=== PATIENT | male | born 1980 | race Two or more races ===

== ENCOUNTER 2021-07-23 07:37 | Inpatient (IN) | payer OTHER ==
[~2021-07-23] VITALS: Ht 193 cm; Wt 94.3 kg
[2021-07-23 10:53] LABS: Basophils # (auto) 0 10 ^3/uL (0-0.2); Basophils % (auto) 0.1 % (0.0-2.0); Eosinophils # (auto) 0 10 ^3/uL (0-0.8); Hematocrit 40.8 % (41.0-53.0); Hemoglobin 14.1 g/dL (13.5-17.5); Lymphocytes # (auto) 0.3 10 ^3/uL (0.4-5.4); Lymphocytes % (auto) 6.5 % (10.0-50.0); Mean Corpuscular Hemoglobin 31.5 pg (28.0-32.0); Mean Corpuscular Hgb Conc. 34.6 g/dL (32.0-36.0); Mean Corpuscular Volume 90.9 fL (80.0-100.0); Monocytes # (auto) 0.3 10 ^3/uL (0-1.3); Monocytes % (auto) 4.9 % (0.0-12.0); Neutrophils # (auto) 4.7 10 ^3/uL (1.6-8.6); Neutrophils % (auto) 88.5 % (37.0-80.0); Red Blood Cells 4.48 10^6/uL (4.5-5.90); Red Cell Distribution Width 12.9 % (11.8-14.3); White Blood Cell 5.3 10^3/uL (4.4-10.8)
[2021-07-23 11:10] LABS: Albumin 3.9 g/dL (3.4-5.0); BUN/Creatinine Ratio 11.5; Bilirubin, Total 0.4 mg/dL (0.2-1.0); Calcium 8.3 mg/dL (8.5-10.1); Total Protein 7.3 g/dL (6.4-8.2)
[2021-07-23] MEDS ORDERED: MORPHINE SULFATE INJECTION 2 MG/ML SYRG IV PRN ×3 (12:00→15:45)
[2021-07-23] MEDS ORDERED: cefTRIAXone 1GM/50ML D5W 50 ML IV ONE ×2 (12:00→15:30)
[2021-07-23] MEDS ORDERED: DexAMETHasone SOD PHOS 10MG/1ML VIAL INJ IV ONE ×2 (12:00→15:30)
[2021-07-23] MEDS ORDERED: AZITHROMYCIN 500MG/ 250ML 250 ML IV ONE ×2 (12:00→15:30)
[2021-07-23] MEDS ORDERED: NITROGLYCERIN 0.4 MG SL TAB SL PRN ×2 (12:00→15:45)
[2021-07-23] MEDS ORDERED: PROMETHAZINE-DM 5 ML ORAL SYRUP PO PRN (14:45)
[2021-07-23] MEDS ORDERED: IPRATROPIUM BROM 0.5 MG/2.5ML INH SOL NEB ONE (15:30)
[2021-07-23] MEDS ORDERED: ALBUTEROL SULF 2.5 MG/0.5ML(0.5%) NEB SOLN NEB ONE (15:30)
[2021-07-23] MEDS ORDERED: REMDESIVIR PER PHARMACY 0 ML IV SCH (15:30)
[2021-07-23] MEDS ORDERED: FUROSEMIDE 20 MG/2 ML VIAL IV ONE (15:30)
[2021-07-23] MEDS ORDERED: PANTOPRAZOLE 40 MG/10 ML VIAL INJ IV ONE (15:30)
[2021-07-23] MEDS ORDERED: ALUM & MAG HYDROX-SIMETH LIQ(MAALOX) 30 ML PO PRN (15:45)
[2021-07-23 16:16] LABS: Cholesterol 99 mg/dL (< 200)
[2021-07-23 16:19] LABS: HDL Cholesterol 39 mg/dL (40-59); LDL Cholesterol 51 mg/dL (< 100); Triglycerides 80 mg/dL (< 150)
[2021-07-23 16:31] LABS: Thyroid Stimulating Hormone 0.71 uIU/mL (0.358-3.74)
[2021-07-23] MEDS ORDERED: REMDESIVIR 200 MG in NS 210ml LOADING DOSE ADULT IV ONE (17:00)
[2021-07-23 17:14] LABS: Magnesium 2.5 mg/dL (1.6-2.6)
[2021-07-23 17:20] LABS: Phosphorus 3.2 mg/dL (2.5-4.90)
[2021-07-23] MEDS ORDERED: ALBUTEROL SULF 2.5 MG/0.5ML(0.5%) NEB SOLN NEB SCH (18:00)
[2021-07-23] MEDS ORDERED: IPRATROPIUM BROM 0.5 MG/2.5ML INH SOL NEB SCH (18:00)
[2021-07-23] MEDS: BUDESONIDE (INHALATION) 180 MCG IH IN SCH (19:28)
[2021-07-23] MEDS: ALBUTEROL SULF HFA 90MCG INH 200DOSE IN PRN (19:28)
[2021-07-23] MEDS: FUROSEMIDE 20 MG/2 ML VIAL IV SCH (20:30)
[2021-07-23] MEDS: ATORVASTATIN 20 MG TAB PO SCH (22:00)
[2021-07-23] MEDS: POTASSIUM CHL 20 Meq TABLET PO SCH (22:00)
[2021-07-23] MEDS: ENOXAPARIN SOD 40 MG/0.4 ML SYRINGE SC SCH (22:00)
[2021-07-24] VITALS: BP 102/53
[2021-07-24 05:00] VITALS: BP 96/61
[2021-07-24] MEDS: FUROSEMIDE 20 MG/2 ML VIAL IV SCH ×2 (06:00→18:54)
[2021-07-24] MEDS: ALBUTEROL SULF HFA 90MCG INH 200DOSE IN PRN ×2 (06:13→19:27)
[2021-07-24] MEDS: BUDESONIDE (INHALATION) 180 MCG IH IN SCH ×2 (06:13→19:26)
[2021-07-24 08:00] VITALS: BP 105/70
[2021-07-24 09:15] LABS: Basophils # (auto) 0 10 ^3/uL (0-0.2); Basophils % (auto) 0.1 % (0.0-2.0); Eosinophils # (auto) 0 10 ^3/uL (0-0.8); Hematocrit 41.5 % (41.0-53.0); Lymphocytes # (auto) 1.1 10 ^3/uL (0.4-5.4); Lymphocytes % (auto) 17.2 % (10.0-50.0); Mean Corpuscular Hgb Conc. 33.7 g/dL (32.0-36.0); Mean Corpuscular Volume 91.9 fL (80.0-100.0); Monocytes # (auto) 0.6 10 ^3/uL (0-1.3); Monocytes % (auto) 8.7 % (0.0-12.0); Neutrophils # (auto) 4.8 10 ^3/uL (1.6-8.6); Nucleated Red Blood Cells % 0.2 %; Red Blood Cells 4.52 10^6/uL (4.5-5.90); Red Cell Distribution Width 12.8 % (11.8-14.3); White Blood Cell 6.5 10^3/uL (4.4-10.8)
[2021-07-24 09:45] LABS: Albumin 3.6 g/dL (3.4-5.0); Calcium 8.3 mg/dL (8.5-10.1); Magnesium 3.8 mg/dL (1.6-2.6); Potassium 4.1 mmol/L (3.5-5.1)
[2021-07-24 09:56] LABS: BUN/Creatinine Ratio 18.9; Bilirubin, Total 0.4 mg/dL (0.2-1.0); Phosphorus 3.8 mg/dL (2.5-4.90); Total Protein 7.1 g/dL (6.4-8.2); Uric Acid 6.1 mg/dL (3.5-7.2)
[2021-07-24 10:04] LABS: INR 1.04 (0.9-1.15); Partial Thromboplastin Time 30.2 sec (23.6-33.0)
[2021-07-24] MEDS: PANTOPRAZOLE 40 MG/10 ML VIAL INJ IV SCH (10:41)
[2021-07-24] MEDS: cefTRIAXone 1GM/50ML D5W 50 ML IV SCH (10:41)
[2021-07-24] MEDS: DexAMETHasone SOD PHOS 10MG/1ML VIAL INJ IV SCH (10:41)
[2021-07-24] MEDS: ASPirin 81 mg TAB PO SCH (10:41)
[2021-07-24] MEDS: CHOLECALCIFEROL (VITD3) 2,000 UNIT CAP/TAB PO SCH (10:42)
[2021-07-24] MEDS: ASCORBIC ACID 1,000 MG TAB PO SCH (10:42)
[2021-07-24] MEDS: ENOXAPARIN SOD 40 MG/0.4 ML SYRINGE SC SCH ×2 (10:42→22:08)
[2021-07-24] MEDS: IVERMECTIN 3 MG TAB PO SCH (10:42)
[2021-07-24] MEDS: ZINC SULFATE 220mg CAP or TAB PO SCH (10:43)
[2021-07-24] MEDS: POTASSIUM CHL 20 Meq TABLET PO SCH ×2 (10:44→22:07)
[2021-07-24] MEDS: AZITHROMYCIN 500MG/ 250ML 250 ML IV SCH (11:15)
[2021-07-24 13:00] VITALS: BP 113/72
[2021-07-24 13:13] LABS: Alcohol, Urine < 3.0 mg/dL (0-10); Amphetamine Screen, Urine NEGATIVE (NEGATIVE); Barbiturate Scree,Urine NEGATIVE (NEGATIVE); Benzodiazephine Screen, Urine NEGATIVE (NEGATIVE); Cannabinoid Screen, Urine NEGATIVE (NEGATIVE); Cocaine Screen, Urine NEGATIVE (NEGATIVE); Opiate Scree,Urine NEGATIVE (NEGATIVE); Phencyclidine Screen, Urine NEGATIVE (NEGATIVE)
[2021-07-24 13:24] LABS: Urine Bacteria NONE SEEN /hpf (None Seen); Urine Blood Negative /uL (Negative); Urine Specific Gravity 1.024 (1.001-1.035); Urine WBC 1 /hpf (0 - 3)
[2021-07-24] MEDS: REMDESIVIR 100mg 100 MG in SODIUM CHL 0.9% 230 ML IV SCH ×2 (15:00→17:00)
[2021-07-24 16:00] VITALS: BP 121/69
[2021-07-24 22:00] VITALS: BP 89/60
[2021-07-24] MEDS: LORazepam 0.5 MG TAB PO PRN (22:08)
[2021-07-24] MEDS: ATORVASTATIN 20 MG TAB PO SCH (22:08)
[2021-07-24] MEDS: ACETAMINOPHEN 500 MG TAB PO PRN (22:30)
[2021-07-24] MEDS ORDERED: DEXTROSE (50%) 50ML SYRG IV PRN (22:45)
[2021-07-24] MEDS: ACCU-CHEK COMFORT CURVE STRIP VI SCH (23:45)
[2021-07-24] MEDS: InsuLIN REG 1unit/0.01ml Soln (100units/ml) SC SCH (23:45)
[2021-07-25 05:00] VITALS: BP 112/62
[2021-07-25] MEDS: InsuLIN REG 1unit/0.01ml Soln (100units/ml) SC SCH ×4 (06:00→23:55)
[2021-07-25] MEDS: ACCU-CHEK COMFORT CURVE STRIP VI SCH ×4 (06:19→23:55)
[2021-07-25] MEDS: FUROSEMIDE 20 MG/2 ML VIAL IV SCH ×2 (06:19→18:08)
[2021-07-25] MEDS ORDERED: NEBUMIS40 XX (06:44)
[2021-07-25] MEDS ORDERED: ALBU108A5 IN (06:44)
[2021-07-25 08:00] VITALS: BP 104/66
[2021-07-25 09:00] VITALS: BP 104/66
[2021-07-25] MEDS: BUDESONIDE (INHALATION) 180 MCG IH IN SCH (09:11)
[2021-07-25] MEDS: ALBUTEROL SULF HFA 90MCG INH 200DOSE IN PRN (09:11)
[2021-07-25] MEDS: ZINC SULFATE 220mg CAP or TAB PO SCH (10:16)
[2021-07-25] MEDS: IVERMECTIN 3 MG TAB PO SCH (10:16)
[2021-07-25] MEDS: ASPirin 81 mg TAB PO SCH (10:16)
[2021-07-25] MEDS: cefTRIAXone 1GM/50ML D5W 50 ML IV SCH (10:16)
[2021-07-25] MEDS: POTASSIUM CHL 20 Meq TABLET PO SCH ×2 (10:16→22:00)
[2021-07-25] MEDS: ASCORBIC ACID 1,000 MG TAB PO SCH (10:16)
[2021-07-25] MEDS: ENOXAPARIN SOD 40 MG/0.4 ML SYRINGE SC SCH ×2 (10:17→22:00)
[2021-07-25] MEDS: PANTOPRAZOLE 40 MG/10 ML VIAL INJ IV SCH (10:17)
[2021-07-25] MEDS: AZITHROMYCIN 500MG/ 250ML 250 ML IV SCH (10:17)
[2021-07-25] MEDS: CHOLECALCIFEROL (VITD3) 2,000 UNIT CAP/TAB PO SCH (10:17)
[2021-07-25] MEDS: DexAMETHasone SOD PHOS 10MG/1ML VIAL INJ IV SCH (10:17)
[2021-07-25 13:00] VITALS: BP 92/50
[2021-07-25] MEDS: REMDESIVIR 100mg 100 MG in SODIUM CHL 0.9% 230 ML IV SCH (14:34)
[2021-07-25 17:00] VITALS: BP 100/66
[2021-07-25 22:00] VITALS: BP 97/52
[2021-07-26] VITALS (7 sets, daily range): BP systolic 94–113; BP diastolic 46–66
[2021-07-26] MEDS: InsuLIN REG 1unit/0.01ml Soln (100units/ml) SC SCH ×3 (06:00→17:44)
[2021-07-26] MEDS: ACCU-CHEK COMFORT CURVE STRIP VI SCH ×3 (06:00→17:44)
[2021-07-26] MEDS: FUROSEMIDE 20 MG/2 ML VIAL IV SCH ×2 (06:46→17:44)
[2021-07-26 07:17] LABS: Potassium 4.1 mmol/L (3.5-5.1)
[2021-07-26 07:24] LABS: Albumin 3.4 g/dL (3.4-5.0); BUN/Creatinine Ratio 24.2; Bilirubin, Total 0.5 mg/dL (0.2-1.0); Calcium 8.1 mg/dL (8.5-10.1); Total Protein 6.6 g/dL (6.4-8.2)
[2021-07-26] MEDS: BUDESONIDE (INHALATION) 180 MCG IH IN SCH ×2 (08:09→20:27)
[2021-07-26] MEDS: ALBUTEROL SULF HFA 90MCG INH 200DOSE IN PRN ×2 (08:10→20:27)
[2021-07-26] MEDS: ENOXAPARIN SOD 40 MG/0.4 ML SYRINGE SC SCH ×2 (09:26→21:39)
[2021-07-26] MEDS: cefTRIAXone 1GM/50ML D5W 50 ML IV SCH (09:26)
[2021-07-26] MEDS: POTASSIUM CHL 20 Meq TABLET PO SCH ×2 (09:27→21:38)
[2021-07-26] MEDS: ASPirin 81 mg TAB PO SCH (09:27)
[2021-07-26] MEDS: CHOLECALCIFEROL (VITD3) 2,000 UNIT CAP/TAB PO SCH (09:27)
[2021-07-26] MEDS: IVERMECTIN 3 MG TAB PO SCH (09:27)
[2021-07-26] MEDS: ZINC SULFATE 220mg CAP or TAB PO SCH (09:27)
[2021-07-26] MEDS: ASCORBIC ACID 1,000 MG TAB PO SCH (09:27)
[2021-07-26] MEDS: AZITHROMYCIN 500MG/ 250ML 250 ML IV SCH (09:28)
[2021-07-26] MEDS: HYDROcodone-ACET 5/325MG TAB PO PRN (09:28)
[2021-07-26] MEDS: PANTOPRAZOLE 40 MG/10 ML VIAL INJ IV SCH (09:28)
[2021-07-26] MEDS: DexAMETHasone SOD PHOS 10MG/1ML VIAL INJ IV SCH (09:28)
[2021-07-26] MEDS: REMDESIVIR 100mg 100 MG in SODIUM CHL 0.9% 230 ML IV SCH (15:00)
[2021-07-26] MEDS: ACETAMINOPHEN 500 MG TAB PO PRN (21:42)
[2021-07-27] MEDS: ACETAMINOPHEN 500 MG TAB PO PRN (04:57)
[2021-07-27 05:00] VITALS: BP 113/63
[2021-07-27] MEDS: InsuLIN REG 1unit/0.01ml Soln (100units/ml) SC SCH ×5 (06:00→22:21)
[2021-07-27] MEDS: FUROSEMIDE 20 MG/2 ML VIAL IV SCH ×2 (06:10→18:00)
[2021-07-27] MEDS: ACCU-CHEK COMFORT CURVE STRIP VI SCH ×5 (06:10→22:25)
[2021-07-27 09:00] VITALS: BP 115/65
[2021-07-27 09:08] LABS: Basophils # (auto) 0 10 ^3/uL (0-0.2); Basophils % (auto) 0.1 % (0.0-2.0); Eosinophils # (auto) 0 10 ^3/uL (0-0.8); Hematocrit 41.7 % (41.0-53.0); Hemoglobin 14.1 g/dL (13.5-17.5); Lymphocytes # (auto) 1.4 10 ^3/uL (0.4-5.4); Mean Corpuscular Hemoglobin 30.9 pg (28.0-32.0); Mean Corpuscular Hgb Conc. 33.9 g/dL (32.0-36.0); Mean Corpuscular Volume 91.3 fL (80.0-100.0); Monocytes # (auto) 0.3 10 ^3/uL (0-1.3); Monocytes % (auto) 2.9 % (0.0-12.0); Neutrophils # (auto) 7.9 10 ^3/uL (1.6-8.6); Red Blood Cells 4.57 10^6/uL (4.5-5.90); Red Cell Distribution Width 12.6 % (11.8-14.3); White Blood Cell 9.6 10^3/uL (4.4-10.8)
[2021-07-27] MEDS: DexAMETHasone SOD PHOS 10MG/1ML VIAL INJ IV SCH (09:19)
[2021-07-27] MEDS: ENOXAPARIN SOD 40 MG/0.4 ML SYRINGE SC SCH ×2 (09:19→21:08)
[2021-07-27] MEDS: PANTOPRAZOLE 40 MG/10 ML VIAL INJ IV SCH (09:19)
[2021-07-27] MEDS: POTASSIUM CHL 20 Meq TABLET PO SCH ×2 (09:20→21:07)
[2021-07-27] MEDS: CHOLECALCIFEROL (VITD3) 2,000 UNIT CAP/TAB PO SCH (09:20)
[2021-07-27] MEDS: cefTRIAXone 1GM/50ML D5W 50 ML IV SCH (09:20)
[2021-07-27] MEDS: ASPirin 81 mg TAB PO SCH (09:20)
[2021-07-27] MEDS: ZINC SULFATE 220mg CAP or TAB PO SCH (09:20)
[2021-07-27] MEDS: IVERMECTIN 3 MG TAB PO SCH (09:21)
[2021-07-27] MEDS: ASCORBIC ACID 1,000 MG TAB PO SCH (09:21)
[2021-07-27] MEDS: HYDROcodone-ACET 5/325MG TAB PO PRN (09:22)
[2021-07-27 09:26] LABS: Albumin 3.2 g/dL (3.4-5.0); Calcium 7.9 mg/dL (8.5-10.1); Magnesium 3.4 mg/dL (1.6-2.6); Potassium 3.3 mmol/L (3.5-5.1)
[2021-07-27 09:34] LABS: BUN/Creatinine Ratio 15.4; Bilirubin, Total 0.6 mg/dL (0.2-1.0); CRP High Sensitivity 8.05 mg/dL (< 0.3); Total Protein 6.8 g/dL (6.4-8.2)
[2021-07-27] MEDS: AZITHROMYCIN 500MG/ 250ML 250 ML IV SCH (11:56)
[2021-07-27] MEDS ORDERED: BUDE2SUS3 IN (11:58)
[2021-07-27] MEDS ORDERED: ALBUAER3 IN (11:58)
[2021-07-27] MEDS ORDERED: POTASSIUM EFFERVESENT TAB 25 MEQ PO ONE (12:00)
[2021-07-27] MEDS ORDERED: CHOL20007 PO (12:02)
[2021-07-27] MEDS ORDERED: ASPI-378 PO (12:02)
[2021-07-27] MEDS ORDERED: ZINC220T6 PO (12:02)
[2021-07-27] MEDS ORDERED: FAMO20TA10 PO (12:02)
[2021-07-27] MEDS ORDERED: IVER3TAB PO (12:02)
[2021-07-27] MEDS ORDERED: DOXY-286 PO (12:02)
[2021-07-27] MEDS ORDERED: DEX4T PO (12:02)
[2021-07-27] MEDS ORDERED: ASCO10003 PO (12:02)
[2021-07-27 13:00] VITALS: BP 90/53
[2021-07-27] MEDS ORDERED: PIPERACILLIN-TAZOB 3.375GM 100 ML IV ONE (13:00)
[2021-07-27] MEDS: BUDESONIDE (INHALATION) 180 MCG IH IN SCH ×2 (13:09→20:19)
[2021-07-27] MEDS: ALBUTEROL SULF HFA 90MCG INH 200DOSE IN PRN ×2 (13:09→20:19)
[2021-07-27] MEDS: REMDESIVIR 100mg 100 MG in SODIUM CHL 0.9% 230 ML IV SCH (15:00)
[2021-07-27 17:00] VITALS: BP 92/69
[2021-07-27] MEDS ORDERED: PIPERACILLIN-TAZOB 3.375GM 100 ML IV SCH (18:00)
[2021-07-27] MEDS: PIPERACILLIN-TAZOB 3.375GM 100 ML IV SCH (21:07)
[2021-07-27 22:00] VITALS: BP 105/57
[2021-07-28] MEDS: PIPERACILLIN-TAZOB 3.375GM 100 ML IV SCH ×4 (03:21→22:38)
[2021-07-28] MEDS: HYDROcodone-ACET 5/325MG TAB PO PRN ×2 (03:22→20:51)
[2021-07-28] MEDS: ACETAMINOPHEN 500 MG TAB PO PRN (04:14)
[2021-07-28 05:00] VITALS: BP 114/55
[2021-07-28] MEDS: BUDESONIDE (INHALATION) 180 MCG IH IN SCH ×2 (05:57→22:09)
[2021-07-28] MEDS: ALBUTEROL SULF HFA 90MCG INH 200DOSE IN PRN ×2 (05:57→22:10)
[2021-07-28] MEDS: ACCU-CHEK COMFORT CURVE STRIP VI SCH ×4 (06:00→23:21)
[2021-07-28] MEDS: FUROSEMIDE 20 MG/2 ML VIAL IV SCH ×2 (06:29→18:05)
[2021-07-28] MEDS: InsuLIN REG 1unit/0.01ml Soln (100units/ml) SC SCH ×4 (06:30→23:21)
[2021-07-28 08:26] LABS: Basophils # (auto) 0 10 ^3/uL (0-0.2); Basophils % (auto) 0.1 % (0.0-2.0); Eosinophils # (auto) 0 10 ^3/uL (0-0.8); Eosinophils % (auto) 0.1 % (0.0-7.0); Hematocrit 40.5 % (41.0-53.0); Hemoglobin 13.9 g/dL (13.5-17.5); Lymphocytes # (auto) 1.2 10 ^3/uL (0.4-5.4); Lymphocytes % (auto) 13.2 % (10.0-50.0); Mean Corpuscular Hgb Conc. 34.3 g/dL (32.0-36.0); Mean Corpuscular Volume 90.2 fL (80.0-100.0); Monocytes # (auto) 0.3 10 ^3/uL (0-1.3); Monocytes % (auto) 3.3 % (0.0-12.0); Neutrophils # (auto) 7.3 10 ^3/uL (1.6-8.6); Neutrophils % (auto) 83.3 % (37.0-80.0); Nucleated Red Blood Cells % 0.1 %; Red Blood Cells 4.49 10^6/uL (4.5-5.90); Red Cell Distribution Width 12.8 % (11.8-14.3); White Blood Cell 8.8 10^3/uL (4.4-10.8)
[2021-07-28 08:29] LABS: INR 1.13 (0.9-1.15); Potassium 3.5 mmol/L (3.5-5.1)
[2021-07-28 08:55] LABS: BUN/Creatinine Ratio 18.2; CRP High Sensitivity 12.4 mg/dL (< 0.3); Calcium 8.4 mg/dL (8.5-10.1)
[2021-07-28] MEDS: ZINC SULFATE 220mg CAP or TAB PO SCH (09:17)
[2021-07-28] MEDS: ENOXAPARIN SOD 40 MG/0.4 ML SYRINGE SC SCH ×2 (09:17→22:38)
[2021-07-28] MEDS: PANTOPRAZOLE 40 MG/10 ML VIAL INJ IV SCH (09:17)
[2021-07-28] MEDS: DexAMETHasone SOD PHOS 10MG/1ML VIAL INJ IV SCH (09:17)
[2021-07-28] MEDS: ASCORBIC ACID 1,000 MG TAB PO SCH (09:18)
[2021-07-28] MEDS: CHOLECALCIFEROL (VITD3) 2,000 UNIT CAP/TAB PO SCH (09:19)
[2021-07-28] MEDS: IVERMECTIN 3 MG TAB PO SCH (09:19)
[2021-07-28] MEDS: POTASSIUM CHL 20 Meq TABLET PO SCH ×2 (09:19→22:38)
[2021-07-28] MEDS: ASPirin 81 mg TAB PO SCH (09:19)
[2021-07-28 10:13] VITALS: BP 100/52
[2021-07-28 12:25] VITALS: BP 99/56
[2021-07-28 16:30] VITALS: BP 96/60
[2021-07-28 22:00] VITALS: BP 98/60
[2021-07-29] MEDS: PIPERACILLIN-TAZOB 3.375GM 100 ML IV SCH ×4 (03:46→21:58)
[2021-07-29 05:00] VITALS: BP 92/51
[2021-07-29] MEDS: FUROSEMIDE 20 MG/2 ML VIAL IV SCH ×2 (05:41→17:58)
[2021-07-29] MEDS: InsuLIN REG 1unit/0.01ml Soln (100units/ml) SC SCH ×3 (06:00→17:58)
[2021-07-29] MEDS: ACCU-CHEK COMFORT CURVE STRIP VI SCH ×3 (06:07→17:57)
[2021-07-29] MEDS: PROMETHAZINE W/CODEINE 5 ML ORAL SYRUP PO PRN ×3 (06:08→21:59)
[2021-07-29 09:00] VITALS: BP_SYST 104; BP_SYST 123; BP_DIAS 57; BP_DIAS 81
[2021-07-29] MEDS: ALBUTEROL SULF HFA 90MCG INH 200DOSE IN PRN ×2 (09:17→19:38)
[2021-07-29] MEDS: BUDESONIDE (INHALATION) 180 MCG IH IN SCH ×2 (09:17→19:38)
[2021-07-29] MEDS: PANTOPRAZOLE 40 MG/10 ML VIAL INJ IV SCH (09:29)
[2021-07-29] MEDS: DOCUSATE SOD 100 MG CAP PO PRN (09:29)
[2021-07-29] MEDS: DexAMETHasone SOD PHOS 10MG/1ML VIAL INJ IV SCH (09:29)
[2021-07-29] MEDS: ZINC SULFATE 220mg CAP or TAB PO SCH (09:29)
[2021-07-29] MEDS: ASPirin 81 mg TAB PO SCH (09:29)
[2021-07-29] MEDS: ASCORBIC ACID 1,000 MG TAB PO SCH (09:30)
[2021-07-29] MEDS: ENOXAPARIN SOD 40 MG/0.4 ML SYRINGE SC SCH (09:30)
[2021-07-29] MEDS: CHOLECALCIFEROL (VITD3) 2,000 UNIT CAP/TAB PO SCH (09:30)
[2021-07-29] MEDS: POTASSIUM CHL 20 Meq TABLET PO SCH ×2 (09:30→21:58)
[2021-07-29 09:44] LABS: Calcium 8.6 mg/dL (8.5-10.1); Potassium 3.9 mmol/L (3.5-5.1)
[2021-07-29] MEDS ORDERED: FUROSEMIDE 20 MG/2 ML VIAL IV ONE (10:45)
[2021-07-29] MEDS: LORazepam 0.5 MG TAB PO PRN (11:56)
[2021-07-29 13:02] VITALS: BP_SYST 93; BP_SYST 94; BP_DIAS 47
[2021-07-29] MEDS: ACETAMINOPHEN 500 MG TAB PO PRN (13:11)
[2021-07-29] MEDS ORDERED: ENOXAPARIN SOD 80 MG/0.8ML SYRINGE SC ONE (13:45)
[2021-07-29] MEDS ORDERED: ENOXAPARIN SOD 120 MG/0.8 ML SYRINGE SC ONE (13:45)
[2021-07-29 17:00] VITALS: BP 83/50
[2021-07-29 22:00] VITALS: BP 104/66
[2021-07-30] MEDS: ACCU-CHEK COMFORT CURVE STRIP VI SCH ×4 (00:44→17:25)
[2021-07-30] MEDS: InsuLIN REG 1unit/0.01ml Soln (100units/ml) SC SCH ×4 (00:44→17:26)
[2021-07-30] MEDS: PIPERACILLIN-TAZOB 3.375GM 100 ML IV SCH ×4 (02:58→21:03)
[2021-07-30 05:00] VITALS: BP 91/46
[2021-07-30 08:00] VITALS: BP 107/55
[2021-07-30] MEDS: DexAMETHasone SOD PHOS 10MG/1ML VIAL INJ IV SCH (09:59)
[2021-07-30] MEDS: PROMETHAZINE W/CODEINE 5 ML ORAL SYRUP PO PRN (09:59)
[2021-07-30] MEDS: FUROSEMIDE 20 MG/2 ML VIAL IV SCH (09:59)
[2021-07-30] MEDS: POTASSIUM CHL 20 Meq TABLET PO SCH ×2 (10:00→21:01)
[2021-07-30] MEDS: ASPirin 81 mg TAB PO SCH (10:00)
[2021-07-30] MEDS: PANTOPRAZOLE 40 MG/10 ML VIAL INJ IV SCH (10:00)
[2021-07-30] MEDS: ZINC SULFATE 220mg CAP or TAB PO SCH (10:00)
[2021-07-30] MEDS: CHOLECALCIFEROL (VITD3) 2,000 UNIT CAP/TAB PO SCH (10:00)
[2021-07-30] MEDS: ASCORBIC ACID 1,000 MG TAB PO SCH (10:00)
[2021-07-30 11:57] VITALS: BP 90/46
[2021-07-30] MEDS: ACETAMINOPHEN 500 MG TAB PO PRN ×2 (12:04→21:39)
[2021-07-30] MEDS: ENOXAPARIN SOD 120 MG/0.8 ML SYRINGE SC SCH (14:04)
[2021-07-30] MEDS: BUDESONIDE (INHALATION) 180 MCG IH IN SCH ×2 (15:29→19:52)
[2021-07-30] MEDS: ALBUTEROL SULF HFA 90MCG INH 200DOSE IN PRN ×2 (15:29→19:52)
[2021-07-30 16:00] VITALS: BP 111/69
[2021-07-30] MEDS: LORazepam 0.5 MG TAB PO PRN (21:01)
[2021-07-30 22:00] VITALS: BP 108/69
[2021-07-31] MEDS: ACCU-CHEK COMFORT CURVE STRIP VI SCH ×4 (00:19→18:46)
[2021-07-31] MEDS: ENOXAPARIN SOD 120 MG/0.8 ML SYRINGE SC SCH ×2 (02:32→14:27)
[2021-07-31] MEDS: PIPERACILLIN-TAZOB 3.375GM 100 ML IV SCH ×4 (02:32→21:03)
[2021-07-31 05:00] VITALS: BP 97/54
[2021-07-31] MEDS: InsuLIN REG 1unit/0.01ml Soln (100units/ml) SC SCH ×4 (06:00→18:52)
[2021-07-31 07:59] VITALS: BP 94/51
[2021-07-31] MEDS: BUDESONIDE (INHALATION) 180 MCG IH IN SCH ×2 (08:33→21:04)
[2021-07-31] MEDS: ALBUTEROL SULF HFA 90MCG INH 200DOSE IN PRN (08:34)
[2021-07-31] MEDS: FUROSEMIDE 20 MG/2 ML VIAL IV SCH (10:00)
[2021-07-31] MEDS: CHOLECALCIFEROL (VITD3) 2,000 UNIT CAP/TAB PO SCH (10:10)
[2021-07-31] MEDS: ASCORBIC ACID 1,000 MG TAB PO SCH (10:10)
[2021-07-31] MEDS: ZINC SULFATE 220mg CAP or TAB PO SCH (10:10)
[2021-07-31] MEDS: POTASSIUM CHL 20 Meq TABLET PO SCH ×2 (10:10→21:02)
[2021-07-31] MEDS: ASPirin 81 mg TAB PO SCH (10:10)
[2021-07-31] MEDS: DexAMETHasone SOD PHOS 10MG/1ML VIAL INJ IV SCH (10:11)
[2021-07-31] MEDS: PANTOPRAZOLE 40 MG/10 ML VIAL INJ IV SCH (10:11)
[2021-07-31 12:00] VITALS: BP 93/53
[2021-07-31] MEDS: ACETAMINOPHEN 500 MG TAB PO PRN (12:08)
[2021-07-31] MEDS ORDERED: methylPREDNISolone SOD SUCC 125 MG/2 ML VL IV ONE (12:30)
[2021-07-31 16:00] VITALS: BP 97/58
[2021-07-31 16:08] LABS: Basophils # (auto) 0 10 ^3/uL (0-0.2); Eosinophils # (auto) 0 10 ^3/uL (0-0.8); Hematocrit 43.1 % (41.0-53.0); Hemoglobin 14.4 g/dL (13.5-17.5); Lymphocytes # (auto) 0.4 10 ^3/uL (0.4-5.4); Lymphocytes % (auto) 3.4 % (10.0-50.0); Mean Corpuscular Hemoglobin 30.4 pg (28.0-32.0); Mean Corpuscular Hgb Conc. 33.5 g/dL (32.0-36.0); Mean Corpuscular Volume 90.8 fL (80.0-100.0); Monocytes # (auto) 0.2 10 ^3/uL (0-1.3); Monocytes % (auto) 1.6 % (0.0-12.0); Red Blood Cells 4.74 10^6/uL (4.5-5.90); Red Cell Distribution Width 12.5 % (11.8-14.3); White Blood Cell 12.7 10^3/uL (4.4-10.8)
[2021-07-31 16:19] LABS: Potassium 4.2 mmol/L (3.5-5.1)
[2021-07-31 16:25] LABS: BUN/Creatinine Ratio 16.1; Calcium 8.7 mg/dL (8.5-10.1)
[2021-07-31 21:43] VITALS: BP 90/45
[2021-08-01] VITALS (8 sets, daily range): BP systolic 91–160; BP diastolic 49–73
[2021-08-01] MEDS: ACCU-CHEK COMFORT CURVE STRIP VI SCH ×4 (00:36→17:43)
[2021-08-01] MEDS: InsuLIN REG 1unit/0.01ml Soln (100units/ml) SC SCH ×4 (00:40→17:43)
[2021-08-01] MEDS: ALBUTEROL SULF HFA 90MCG INH 200DOSE IN PRN ×3 (01:00→19:31)
[2021-08-01] MEDS: ENOXAPARIN SOD 120 MG/0.8 ML SYRINGE SC SCH ×2 (02:25→14:18)
[2021-08-01] MEDS: PIPERACILLIN-TAZOB 3.375GM 100 ML IV SCH ×4 (02:25→21:46)
[2021-08-01] MEDS: BUDESONIDE (INHALATION) 180 MCG IH IN SCH ×2 (07:36→19:31)
[2021-08-01] MEDS: DexAMETHasone SOD PHOS 10MG/1ML VIAL INJ IV SCH (10:52)
[2021-08-01] MEDS: PANTOPRAZOLE 40 MG/10 ML VIAL INJ IV SCH (10:53)
[2021-08-01] MEDS: FUROSEMIDE 20 MG/2 ML VIAL IV SCH (10:53)
[2021-08-01] MEDS: ASPirin 81 mg TAB PO SCH (10:54)
[2021-08-01] MEDS: ZINC SULFATE 220mg CAP or TAB PO SCH (10:54)
[2021-08-01] MEDS: CHOLECALCIFEROL (VITD3) 2,000 UNIT CAP/TAB PO SCH (10:54)
[2021-08-01] MEDS: POTASSIUM CHL 20 Meq TABLET PO SCH ×2 (10:55→21:46)
[2021-08-01] MEDS: ASCORBIC ACID 1,000 MG TAB PO SCH (10:55)
[2021-08-02] MEDS: ACCU-CHEK COMFORT CURVE STRIP VI SCH ×5 (00:07→23:58)
[2021-08-02] MEDS: InsuLIN REG 1unit/0.01ml Soln (100units/ml) SC SCH ×5 (00:08→23:58)
[2021-08-02] MEDS: ENOXAPARIN SOD 120 MG/0.8 ML SYRINGE SC SCH ×2 (02:11→14:10)
[2021-08-02] MEDS: PIPERACILLIN-TAZOB 3.375GM 100 ML IV SCH ×4 (02:27→21:35)
[2021-08-02 05:00] VITALS: BP 97/48
[2021-08-02] MEDS: ALBUTEROL SULF HFA 90MCG INH 200DOSE IN PRN (06:51)
[2021-08-02] MEDS: BUDESONIDE (INHALATION) 180 MCG IH IN SCH ×2 (06:51→22:01)
[2021-08-02 07:26] LABS: Basophils # (auto) 0 10 ^3/uL (0-0.2); Basophils % (auto) 0.1 % (0.0-2.0); Eosinophils # (auto) 0 10 ^3/uL (0-0.8); Hematocrit 39.3 % (41.0-53.0); Hemoglobin 12.9 g/dL (13.5-17.5); Lymphocytes # (auto) 0.6 10 ^3/uL (0.4-5.4); Mean Corpuscular Hgb Conc. 32.8 g/dL (32.0-36.0); Mean Corpuscular Volume 91.6 fL (80.0-100.0); Monocytes # (auto) 0.2 10 ^3/uL (0-1.3); Monocytes % (auto) 1.3 % (0.0-12.0); Neutrophils # (auto) 13.6 10 ^3/uL (1.6-8.6); Neutrophils % (auto) 94.6 % (37.0-80.0); Nucleated Red Blood Cells % 0.1 %; Red Cell Distribution Width 12.7 % (11.8-14.3); White Blood Cell 14.3 10^3/uL (4.4-10.8)
[2021-08-02 07:47] LABS: Potassium 4.1 mmol/L (3.5-5.1)
[2021-08-02 07:53] LABS: BUN/Creatinine Ratio 38.3; Calcium 8.1 mg/dL (8.5-10.1)
[2021-08-02 09:00] VITALS: BP 100/42
[2021-08-02] MEDS: DOCUSATE SOD 100 MG CAP PO PRN (09:45)
[2021-08-02] MEDS: DexAMETHasone SOD PHOS 10MG/1ML VIAL INJ IV SCH (09:59)
[2021-08-02] MEDS: ASCORBIC ACID 1,000 MG TAB PO SCH (10:00)
[2021-08-02] MEDS: ASPirin 81 mg TAB PO SCH (10:00)
[2021-08-02] MEDS: FUROSEMIDE 20 MG/2 ML VIAL IV SCH (10:00)
[2021-08-02] MEDS: PANTOPRAZOLE 40 MG/10 ML VIAL INJ IV SCH (10:00)
[2021-08-02] MEDS: CHOLECALCIFEROL (VITD3) 2,000 UNIT CAP/TAB PO SCH (10:00)
[2021-08-02] MEDS: POTASSIUM CHL 20 Meq TABLET PO SCH ×2 (10:00→21:35)
[2021-08-02] MEDS: ZINC SULFATE 220mg CAP or TAB PO SCH (10:00)
[2021-08-02] MEDS: LORazepam 0.5 MG TAB PO PRN (10:10)
[2021-08-02] MEDS ORDERED: LORazepam 2MG/ML-1ML VIAL IV PRN (11:15)
[2021-08-02 13:00] VITALS: BP 101/55
[2021-08-02] MEDS: PROMETHAZINE W/CODEINE 5 ML ORAL SYRUP PO PRN ×3 (13:01→22:33)
[2021-08-02 17:00] VITALS: BP 104/50
[2021-08-02 22:00] VITALS: BP 113/65
[2021-08-03] MEDS: ENOXAPARIN SOD 120 MG/0.8 ML SYRINGE SC SCH ×2 (01:19→13:45)
[2021-08-03] MEDS: PIPERACILLIN-TAZOB 3.375GM 100 ML IV SCH ×4 (02:59→21:28)
[2021-08-03 05:00] VITALS: BP 101/59
[2021-08-03] MEDS: InsuLIN REG 1unit/0.01ml Soln (100units/ml) SC SCH ×3 (05:18→18:00)
[2021-08-03] MEDS: ACCU-CHEK COMFORT CURVE STRIP VI SCH ×3 (05:18→18:00)
[2021-08-03] MEDS: PROMETHAZINE W/CODEINE 5 ML ORAL SYRUP PO PRN ×2 (05:18→21:56)
[2021-08-03 07:58] LABS: Basophils # (auto) 0.1 10 ^3/uL (0-0.2); Basophils % (auto) 0.4 % (0.0-2.0); Eosinophils # (auto) 0 10 ^3/uL (0-0.8); Eosinophils % (auto) 0.1 % (0.0-7.0); Hematocrit 40.7 % (41.0-53.0); Hemoglobin 13.7 g/dL (13.5-17.5); Lymphocytes # (auto) 0.7 10 ^3/uL (0.4-5.4); Lymphocytes % (auto) 5.1 % (10.0-50.0); Mean Corpuscular Hemoglobin 30.9 pg (28.0-32.0); Mean Corpuscular Hgb Conc. 33.7 g/dL (32.0-36.0); Mean Corpuscular Volume 91.8 fL (80.0-100.0); Monocytes # (auto) 0.2 10 ^3/uL (0-1.3); Monocytes % (auto) 1.9 % (0.0-12.0); Neutrophils # (auto) 11.8 10 ^3/uL (1.6-8.6); Neutrophils % (auto) 92.5 % (37.0-80.0); Nucleated Red Blood Cells % 0.1 %; Red Blood Cells 4.44 10^6/uL (4.5-5.90); Red Cell Distribution Width 12.8 % (11.8-14.3); White Blood Cell 12.8 10^3/uL (4.4-10.8)
[2021-08-03 08:00] VITALS: BP 115/77
[2021-08-03 08:16] LABS: Potassium 4.5 mmol/L (3.5-5.1)
[2021-08-03 08:23] LABS: BUN/Creatinine Ratio 29.2; Calcium 8.6 mg/dL (8.5-10.1)
[2021-08-03] MEDS: ZINC SULFATE 220mg CAP or TAB PO SCH (10:00)
[2021-08-03] MEDS: BUDESONIDE (INHALATION) 180 MCG IH IN SCH ×2 (10:00→19:39)
[2021-08-03] MEDS: DexAMETHasone SOD PHOS 10MG/1ML VIAL INJ IV SCH (11:21)
[2021-08-03] MEDS: ASPirin 81 mg TAB PO SCH (11:21)
[2021-08-03] MEDS: POTASSIUM CHL 20 Meq TABLET PO SCH ×2 (11:21→21:29)
[2021-08-03] MEDS: PANTOPRAZOLE 40 MG/10 ML VIAL INJ IV SCH (11:21)
[2021-08-03] MEDS: CHOLECALCIFEROL (VITD3) 2,000 UNIT CAP/TAB PO SCH (11:21)
[2021-08-03] MEDS: FUROSEMIDE 20 MG/2 ML VIAL IV SCH (11:22)
[2021-08-03] MEDS: ASCORBIC ACID 1,000 MG TAB PO SCH (11:22)
[2021-08-03 12:42] VITALS: BP 102/61
[2021-08-03] MEDS: ALBUTEROL SULF HFA 90MCG INH 200DOSE IN PRN ×2 (12:54→21:10)
[2021-08-03 17:30] VITALS: BP 104/66
[2021-08-03 21:30] VITALS: BP 112/65
[2021-08-03] MEDS: DOCUSATE SOD 100 MG CAP PO PRN (21:58)
[2021-08-04] MEDS: ACCU-CHEK COMFORT CURVE STRIP VI SCH ×4 (00:42→17:48)
[2021-08-04] MEDS: ENOXAPARIN SOD 120 MG/0.8 ML SYRINGE SC SCH ×2 (02:39→13:54)
[2021-08-04] MEDS: PIPERACILLIN-TAZOB 3.375GM 100 ML IV SCH ×4 (02:39→22:44)
[2021-08-04 05:20] VITALS: BP 104/66
[2021-08-04] MEDS: InsuLIN REG 1unit/0.01ml Soln (100units/ml) SC SCH ×4 (05:53→17:48)
[2021-08-04] MEDS: BUDESONIDE (INHALATION) 180 MCG IH IN SCH ×2 (05:56→19:14)
[2021-08-04] MEDS: ALBUTEROL SULF HFA 90MCG INH 200DOSE IN PRN ×2 (05:56→19:14)
[2021-08-04 07:28] LABS: Basophils # (auto) 0 10 ^3/uL (0-0.2); Basophils % (auto) 0.1 % (0.0-2.0); Eosinophils # (auto) 0 10 ^3/uL (0-0.8); Eosinophils % (auto) 0.3 % (0.0-7.0); Hematocrit 37.6 % (41.0-53.0); Hemoglobin 12.9 g/dL (13.5-17.5); Lymphocytes # (auto) 0.6 10 ^3/uL (0.4-5.4); Lymphocytes % (auto) 7.6 % (10.0-50.0); Mean Corpuscular Hemoglobin 31.4 pg (28.0-32.0); Mean Corpuscular Hgb Conc. 34.3 g/dL (32.0-36.0); Mean Corpuscular Volume 91.3 fL (80.0-100.0); Monocytes # (auto) 0.2 10 ^3/uL (0-1.3); Monocytes % (auto) 1.9 % (0.0-12.0); Neutrophils # (auto) 7.1 10 ^3/uL (1.6-8.6); Neutrophils % (auto) 90.1 % (37.0-80.0); Red Blood Cells 4.12 10^6/uL (4.5-5.90); Red Cell Distribution Width 12.8 % (11.8-14.3); White Blood Cell 7.9 10^3/uL (4.4-10.8)
[2021-08-04 07:39] LABS: BUN/Creatinine Ratio 30.9; Calcium 8.2 mg/dL (8.5-10.1); Potassium 4.9 mmol/L (3.5-5.1)
[2021-08-04 09:21] VITALS: BP 97/56
[2021-08-04] MEDS: DexAMETHasone SOD PHOS 10MG/1ML VIAL INJ IV SCH (09:28)
[2021-08-04] MEDS: FUROSEMIDE 20 MG/2 ML VIAL IV SCH (09:28)
[2021-08-04] MEDS: PANTOPRAZOLE 40 MG/10 ML VIAL INJ IV SCH (09:29)
[2021-08-04] MEDS: CHOLECALCIFEROL (VITD3) 2,000 UNIT CAP/TAB PO SCH (09:30)
[2021-08-04] MEDS: ZINC SULFATE 220mg CAP or TAB PO SCH (09:30)
[2021-08-04] MEDS: POTASSIUM CHL 20 Meq TABLET PO SCH ×2 (09:30→22:44)
[2021-08-04] MEDS: ASPirin 81 mg TAB PO SCH (09:30)
[2021-08-04] MEDS: ASCORBIC ACID 1,000 MG TAB PO SCH (09:30)
[2021-08-04 12:33] VITALS: BP 105/60
[2021-08-04 16:38] VITALS: BP 110/62
[2021-08-04 20:00] VITALS: BP 98/61
[2021-08-05] MEDS: ENOXAPARIN SOD 120 MG/0.8 ML SYRINGE SC SCH ×2 (02:49→10:20)
[2021-08-05] MEDS: PIPERACILLIN-TAZOB 3.375GM 100 ML IV SCH ×2 (02:49→09:08)
[2021-08-05 05:00] VITALS: BP 111/44
[2021-08-05] MEDS: ACCU-CHEK COMFORT CURVE STRIP VI SCH ×5 (05:27→23:48)
[2021-08-05] MEDS: InsuLIN REG 1unit/0.01ml Soln (100units/ml) SC SCH ×5 (05:58→23:46)
[2021-08-05] MEDS: DOCUSATE SOD 100 MG CAP PO PRN (06:02)
[2021-08-05] MEDS: PROMETHAZINE W/CODEINE 5 ML ORAL SYRUP PO PRN (06:02)
[2021-08-05 06:06] LABS: Basophils # (auto) 0 10 ^3/uL (0-0.2); Basophils % (auto) 0.2 % (0.0-2.0); Eosinophils # (auto) 0.2 10 ^3/uL (0-0.8); Eosinophils % (auto) 2.1 % (0.0-7.0); Hematocrit 40.3 % (41.0-53.0); Hemoglobin 13.6 g/dL (13.5-17.5); Lymphocytes # (auto) 1.1 10 ^3/uL (0.4-5.4); Mean Corpuscular Hemoglobin 30.9 pg (28.0-32.0); Mean Corpuscular Hgb Conc. 33.8 g/dL (32.0-36.0); Mean Corpuscular Volume 91.6 fL (80.0-100.0); Monocytes # (auto) 0.3 10 ^3/uL (0-1.3); Monocytes % (auto) 2.7 % (0.0-12.0); Neutrophils # (auto) 8.4 10 ^3/uL (1.6-8.6); Red Cell Distribution Width 12.8 % (11.8-14.3); White Blood Cell 9.9 10^3/uL (4.4-10.8)
[2021-08-05 06:36] LABS: Calcium 8.1 mg/dL (8.5-10.1); Potassium 4.9 mmol/L (3.5-5.1)
[2021-08-05] MEDS: ALBUTEROL SULF HFA 90MCG INH 200DOSE IN PRN (07:27)
[2021-08-05] MEDS: BUDESONIDE (INHALATION) 180 MCG IH IN SCH ×2 (07:27→18:50)
[2021-08-05 08:33] VITALS: BP 117/63
[2021-08-05] MEDS: ACETAMINOPHEN 500 MG TAB PO PRN (09:07)
[2021-08-05] MEDS: FUROSEMIDE 20 MG/2 ML VIAL IV SCH (09:08)
[2021-08-05] MEDS: ZINC SULFATE 220mg CAP or TAB PO SCH (09:08)
[2021-08-05] MEDS: DexAMETHasone SOD PHOS 10MG/1ML VIAL INJ IV SCH (09:08)
[2021-08-05] MEDS: PANTOPRAZOLE 40 MG/10 ML VIAL INJ IV SCH (09:08)
[2021-08-05] MEDS: ASPirin 81 mg TAB PO SCH (09:09)
[2021-08-05] MEDS: POTASSIUM CHL 20 Meq TABLET PO SCH ×2 (09:09→22:01)
[2021-08-05] MEDS: ASCORBIC ACID 1,000 MG TAB PO SCH (09:09)
[2021-08-05] MEDS: CHOLECALCIFEROL (VITD3) 2,000 UNIT CAP/TAB PO SCH (09:09)
[2021-08-05] MEDS ORDERED: methylPREDNISolone SOD SUCC 125 MG/2 ML VL IV ONE (10:00)
[2021-08-05] MEDS ORDERED: MEROPENEM 1GM IVPB 100 ML IV ONE (10:15)
[2021-08-05 11:32] LABS: INR 1.24 (0.9-1.15)
[2021-08-05] MEDS ORDERED: REMDESIVIR PER PHARMACY 0 ML IV SCH (12:15)
[2021-08-05 12:31] VITALS: BP 93/68
[2021-08-05] MEDS: LINEZOLID 600MG/300ML 300 ML IV SCH (14:27)
[2021-08-05] MEDS ORDERED: LIDOCAINE 1% (LOCAL ANESTH.) PF 5ml SDV ID ONE (15:15)
[2021-08-05] MEDS: REMDESIVIR 100mg 100 MG in SODIUM CHL 0.9% 230 ML IV SCH (16:24)
[2021-08-05 16:40] VITALS: BP 95/56
[2021-08-05] MEDS: MEROPENEM 1GM IVPB 100 ML IV SCH (18:05)
[2021-08-05 22:00] VITALS: BP 103/61
[2021-08-05] MEDS: SODIUM CHLOR 0.9% PF (SALINE LOCK) 10ML VIAL/SYR IV SCH (22:00)
[2021-08-06] VITALS (18 sets, daily range): BP systolic 99–124; BP diastolic 16–76
[2021-08-06] MEDS: ALBUTEROL SULF HFA 90MCG INH 200DOSE IN PRN ×2 (00:22→05:59)
[2021-08-06] MEDS: LINEZOLID 600MG/300ML 300 ML IV SCH ×2 (01:25→16:29)
[2021-08-06] MEDS: MEROPENEM 1GM IVPB 100 ML IV SCH ×4 (01:25→21:24)
[2021-08-06] MEDS: ENOXAPARIN SOD 120 MG/0.8 ML SYRINGE SC SCH ×2 (01:25→16:30)
[2021-08-06] MEDS: ACCU-CHEK COMFORT CURVE STRIP VI SCH ×3 (05:36→18:00)
[2021-08-06] MEDS: InsuLIN REG 1unit/0.01ml Soln (100units/ml) SC SCH ×3 (05:47→18:00)
[2021-08-06] MEDS: BUDESONIDE (INHALATION) 180 MCG IH IN SCH ×2 (05:58→22:00)
[2021-08-06] MEDS: PROMETHAZINE W/CODEINE 5 ML ORAL SYRUP PO PRN (06:31)
[2021-08-06 07:14] LABS: Basophils # (auto) 0 10 ^3/uL (0-0.2); Basophils % (auto) 0.1 % (0.0-2.0); Eosinophils # (auto) 0 10 ^3/uL (0-0.8); Hematocrit 40.3 % (41.0-53.0); Hemoglobin 13.6 g/dL (13.5-17.5); Lymphocytes # (auto) 0.7 10 ^3/uL (0.4-5.4); Lymphocytes % (auto) 6.9 % (10.0-50.0); Mean Corpuscular Hemoglobin 30.8 pg (28.0-32.0); Mean Corpuscular Hgb Conc. 33.7 g/dL (32.0-36.0); Mean Corpuscular Volume 91.2 fL (80.0-100.0); Monocytes # (auto) 0.4 10 ^3/uL (0-1.3); Monocytes % (auto) 3.5 % (0.0-12.0); Neutrophils # (auto) 9.7 10 ^3/uL (1.6-8.6); Neutrophils % (auto) 89.5 % (37.0-80.0); Red Blood Cells 4.42 10^6/uL (4.5-5.90); Red Cell Distribution Width 12.4 % (11.8-14.3); White Blood Cell 10.8 10^3/uL (4.4-10.8)
[2021-08-06 07:36] LABS: Potassium 4.5 mmol/L (3.5-5.1)
[2021-08-06 07:56] LABS: Albumin 1.9 g/dL (3.4-5.0); Calcium 8.8 mg/dL (8.5-10.1)
[2021-08-06 07:58] LABS: Bilirubin, Total 0.7 mg/dL (0.2-1.0); Total Protein 6.8 g/dL (6.4-8.2)
[2021-08-06] MEDS: ASCORBIC ACID 1,000 MG TAB PO SCH (10:00)
[2021-08-06] MEDS: SODIUM CHLOR 0.9% PF (SALINE LOCK) 10ML VIAL/SYR IV SCH ×2 (10:00→22:00)
[2021-08-06] MEDS: POTASSIUM CHL 20 Meq TABLET PO SCH ×2 (10:00→22:00)
[2021-08-06] MEDS: PANTOPRAZOLE 40 MG/10 ML VIAL INJ IV SCH (10:00)
[2021-08-06] MEDS: ZINC SULFATE 220mg CAP or TAB PO SCH (10:00)
[2021-08-06] MEDS: DexAMETHasone SOD PHOS 10MG/1ML VIAL INJ IV SCH ×2 (10:00→10:30)
[2021-08-06] MEDS: ASPirin 81 mg TAB PO SCH (10:00)
[2021-08-06] MEDS: FUROSEMIDE 20 MG/2 ML VIAL IV SCH (10:00)
[2021-08-06] MEDS: CHOLECALCIFEROL (VITD3) 2,000 UNIT CAP/TAB PO SCH (10:00)
[2021-08-06] MEDS ORDERED: ETOMIDATE (2MG/ML) 20ML VIAL IV ONE ×2 (10:15→10:39)
[2021-08-06] MEDS ORDERED: ROCURONIUM 10MG/ML 10ML VIAL IV ONE ×4 (10:15→12:45)
[2021-08-06] MEDS ORDERED: PROPOFOL 100 ML IV ONE ×2 (10:39→12:52)
[2021-08-06] MEDS ORDERED: MIDAZOLAM DRIP 50 mg/50mL 50 ML IV ONE (10:40)
[2021-08-06] MEDS ORDERED: fentaNYL Drip 2500mCg/250mlNS 250 ML IV ONE (12:05)
[2021-08-06] MEDS: MIDAZOLAM DRIP 50 mg/50mL 50 ML IV SCH ×2 (14:28→22:39)
[2021-08-06] MEDS: fentaNYL Drip 2500mCg/250mlNS 250 ML IV SCH ×2 (15:24→22:37)
[2021-08-06] MEDS: PROPOFOL 100 ML IV SCH ×2 (15:24→22:38)
[2021-08-06] MEDS: REMDESIVIR 100mg 100 MG in SODIUM CHL 0.9% 230 ML IV SCH (16:30)
[2021-08-07] VITALS (32 sets, daily range): BP systolic 97–121; BP diastolic 48–70
[2021-08-07] MEDS: LINEZOLID 600MG/300ML 300 ML IV SCH ×2 (01:45→06:58)
[2021-08-07] MEDS: NOREPINEPHRINE 8 MG/250ML KIT 250 ML IV SCH (02:00)
[2021-08-07] MEDS: ENOXAPARIN SOD 120 MG/0.8 ML SYRINGE SC SCH ×2 (03:04→14:26)
[2021-08-07 05:14] LABS: Basophils # (auto) 0 10 ^3/uL (0-0.2); Basophils % (auto) 0.1 % (0.0-2.0); Eosinophils # (auto) 0 10 ^3/uL (0-0.8); Eosinophils % (auto) 0.1 % (0.0-7.0); Hematocrit 37.9 % (41.0-53.0); Hemoglobin 12.4 g/dL (13.5-17.5); Lymphocytes # (auto) 1.3 10 ^3/uL (0.4-5.4); Lymphocytes % (auto) 8.4 % (10.0-50.0); Mean Corpuscular Hemoglobin 30.4 pg (28.0-32.0); Mean Corpuscular Hgb Conc. 32.8 g/dL (32.0-36.0); Mean Corpuscular Volume 92.8 fL (80.0-100.0); Monocytes # (auto) 0.8 10 ^3/uL (0-1.3); Monocytes % (auto) 5.5 % (0.0-12.0); Neutrophils # (auto) 12.9 10 ^3/uL (1.6-8.6); Neutrophils % (auto) 85.9 % (37.0-80.0); Red Blood Cells 4.08 10^6/uL (4.5-5.90); Red Cell Distribution Width 12.9 % (11.8-14.3)
[2021-08-07 05:37] LABS: Potassium 4.9 mmol/L (3.5-5.1)
[2021-08-07 05:44] LABS: BUN/Creatinine Ratio 22.4; Calcium 8.1 mg/dL (8.5-10.1)
[2021-08-07 05:47] LABS: Bilirubin, Total 0.3 mg/dL (0.2-1.0); Total Protein 6.4 g/dL (6.4-8.2)
[2021-08-07] MEDS: MEROPENEM 1GM IVPB 100 ML IV SCH ×3 (06:00→22:00)
[2021-08-07] MEDS: ACCU-CHEK COMFORT CURVE STRIP VI SCH ×4 (06:00→18:14)
[2021-08-07] MEDS: InsuLIN REG 1unit/0.01ml Soln (100units/ml) SC SCH ×4 (06:58→18:00)
[2021-08-07] MEDS: CHOLECALCIFEROL (VITD3) 2,000 UNIT CAP/TAB PO SCH (10:00)
[2021-08-07] MEDS: SODIUM CHLOR 0.9% PF (SALINE LOCK) 10ML VIAL/SYR IV SCH ×2 (10:00→23:29)
[2021-08-07] MEDS: PANTOPRAZOLE 40 MG/10 ML VIAL INJ IV SCH (10:00)
[2021-08-07] MEDS: ZINC SULFATE 220mg CAP or TAB PO SCH (10:00)
[2021-08-07] MEDS: ASCORBIC ACID 1,000 MG TAB PO SCH (10:00)
[2021-08-07] MEDS: ASPirin 81 mg TAB PO SCH (10:00)
[2021-08-07] MEDS: POTASSIUM CHL 20 Meq TABLET PO SCH ×2 (10:00→23:30)
[2021-08-07] MEDS: FUROSEMIDE 20 MG/2 ML VIAL IV SCH (10:00)
[2021-08-07] MEDS: REMDESIVIR 100mg 100 MG in SODIUM CHL 0.9% 230 ML IV SCH (15:00)
[2021-08-07] MEDS: fentaNYL Drip 2500mCg/250mlNS 250 ML IV SCH (23:25)
[2021-08-07] MEDS: MIDAZOLAM DRIP 50 mg/50mL 50 ML IV SCH (23:27)
[2021-08-07] MEDS: PROPOFOL 100 ML IV SCH (23:27)
[2021-08-08] VITALS (98 sets, daily range): BP systolic 92–120; BP diastolic 56–76
[2021-08-08] MEDS: LINEZOLID 600MG/300ML 300 ML IV SCH ×2 (01:00→17:47)
[2021-08-08] MEDS: NOREPINEPHRINE 8 MG/250ML KIT 250 ML IV SCH ×2 (02:00→10:52)
[2021-08-08] MEDS: ENOXAPARIN SOD 120 MG/0.8 ML SYRINGE SC SCH ×2 (02:00→14:12)
[2021-08-08 04:41] LABS: Basophils # (auto) 0 10 ^3/uL (0-0.2); Basophils % (auto) 0.1 % (0.0-2.0); Eosinophils # (auto) 0 10 ^3/uL (0-0.8); Hemoglobin 11.9 g/dL (13.5-17.5); Lymphocytes # (auto) 0.7 10 ^3/uL (0.4-5.4); Lymphocytes % (auto) 6.1 % (10.0-50.0); Mean Corpuscular Hemoglobin 30.1 pg (28.0-32.0); Mean Corpuscular Hgb Conc. 32.1 g/dL (32.0-36.0); Mean Corpuscular Volume 93.8 fL (80.0-100.0); Monocytes # (auto) 0.6 10 ^3/uL (0-1.3); Monocytes % (auto) 5.2 % (0.0-12.0); Neutrophils # (auto) 10.6 10 ^3/uL (1.6-8.6); Neutrophils % (auto) 88.6 % (37.0-80.0); Red Blood Cells 3.94 10^6/uL (4.5-5.90)
[2021-08-08 05:10] LABS: Potassium 4.7 mmol/L (3.5-5.1)
[2021-08-08 05:17] LABS: Albumin 1.9 g/dL (3.4-5.0); BUN/Creatinine Ratio 27.4; Bilirubin, Total 0.5 mg/dL (0.2-1.0); Calcium 7.4 mg/dL (8.5-10.1); Total Protein 5.9 g/dL (6.4-8.2)
[2021-08-08] MEDS: MEROPENEM 1GM IVPB 100 ML IV SCH ×3 (05:36→23:05)
[2021-08-08] MEDS: InsuLIN REG 1unit/0.01ml Soln (100units/ml) SC SCH ×4 (06:55→18:00)
[2021-08-08] MEDS: SODIUM CHLOR 0.9% PF (SALINE LOCK) 10ML VIAL/SYR IV SCH ×2 (08:54→23:06)
[2021-08-08] MEDS: PANTOPRAZOLE 40 MG/10 ML VIAL INJ IV SCH (08:54)
[2021-08-08] MEDS: ZINC SULFATE 220mg CAP or TAB PO SCH (08:55)
[2021-08-08] MEDS: FUROSEMIDE 20 MG/2 ML VIAL IV SCH ×2 (08:55→14:13)
[2021-08-08] MEDS: ASPirin 81 mg TAB PO SCH (08:55)
[2021-08-08] MEDS: ASCORBIC ACID 1,000 MG TAB PO SCH (08:56)
[2021-08-08] MEDS: CHOLECALCIFEROL (VITD3) 2,000 UNIT CAP/TAB PO SCH (08:56)
[2021-08-08] MEDS: POTASSIUM CHL 20 Meq TABLET PO SCH (08:58)
[2021-08-08] MEDS: MIDAZOLAM DRIP 50 mg/50mL 50 ML IV SCH ×2 (09:57→14:11)
[2021-08-08] MEDS: PROPOFOL 100 ML IV SCH ×2 (10:49→23:11)
[2021-08-08] MEDS: ACCU-CHEK COMFORT CURVE STRIP VI SCH ×3 (11:46→17:48)
[2021-08-08] MEDS: REMDESIVIR 100mg 100 MG in SODIUM CHL 0.9% 230 ML IV SCH (16:00)
[2021-08-08] MEDS: fentaNYL Drip 2500mCg/250mlNS 250 ML IV SCH (23:08)
[2021-08-09] VITALS (95 sets, daily range): BP systolic 84–137; BP diastolic 42–80
[2021-08-09] MEDS: LINEZOLID 600MG/300ML 300 ML IV SCH ×2 (01:00→11:36)
[2021-08-09] MEDS: ENOXAPARIN SOD 120 MG/0.8 ML SYRINGE SC SCH ×2 (02:04→15:41)
[2021-08-09] MEDS: MIDAZOLAM DRIP 50 mg/50mL 50 ML IV SCH ×3 (02:07→23:28)
[2021-08-09] MEDS: ACCU-CHEK COMFORT CURVE STRIP VI SCH ×4 (06:00→18:00)
[2021-08-09] MEDS: InsuLIN REG 1unit/0.01ml Soln (100units/ml) SC SCH ×4 (06:00→18:00)
[2021-08-09] MEDS: MEROPENEM 1GM IVPB 100 ML IV SCH ×3 (06:00→22:00)
[2021-08-09 06:05] LABS: Basophils # (auto) 0 10 ^3/uL (0-0.2); Basophils % (auto) 0.2 % (0.0-2.0); Eosinophils # (auto) 0.7 10 ^3/uL (0-0.8); Eosinophils % (auto) 7.2 % (0.0-7.0); Hematocrit 34.6 % (41.0-53.0); Hemoglobin 11.1 g/dL (13.5-17.5); Lymphocytes # (auto) 0.9 10 ^3/uL (0.4-5.4); Lymphocytes % (auto) 9.3 % (10.0-50.0); Mean Corpuscular Hemoglobin 30.4 pg (28.0-32.0); Mean Corpuscular Hgb Conc. 32.1 g/dL (32.0-36.0); Mean Corpuscular Volume 94.5 fL (80.0-100.0); Monocytes # (auto) 0.1 10 ^3/uL (0-1.3); Monocytes % (auto) 1.4 % (0.0-12.0); Neutrophils # (auto) 8.1 10 ^3/uL (1.6-8.6); Neutrophils % (auto) 81.9 % (37.0-80.0); Nucleated Red Blood Cells % 0.1 %; Red Blood Cells 3.66 10^6/uL (4.5-5.90); White Blood Cell 9.9 10^3/uL (4.4-10.8)
[2021-08-09 06:17] LABS: Albumin 1.9 g/dL (3.4-5.0); Calcium 7.5 mg/dL (8.5-10.1); Potassium 4.1 mmol/L (3.5-5.1)
[2021-08-09 06:21] LABS: BUN/Creatinine Ratio 36.7; Bilirubin, Total 0.4 mg/dL (0.2-1.0); Total Protein 5.5 g/dL (6.4-8.2)
[2021-08-09] MEDS: PANTOPRAZOLE 40 MG/10 ML VIAL INJ IV SCH (09:53)
[2021-08-09] MEDS: ZINC SULFATE 220mg CAP or TAB PO SCH (09:54)
[2021-08-09] MEDS: SODIUM CHLOR 0.9% PF (SALINE LOCK) 10ML VIAL/SYR IV SCH ×2 (09:54→23:20)
[2021-08-09] MEDS: CHOLECALCIFEROL (VITD3) 2,000 UNIT CAP/TAB PO SCH (09:55)
[2021-08-09] MEDS: ASCORBIC ACID 1,000 MG TAB PO SCH (09:55)
[2021-08-09] MEDS: ACETAMINOPHEN 500 MG TAB PO PRN (09:55)
[2021-08-09] MEDS: FUROSEMIDE 20 MG/2 ML VIAL IV SCH (09:56)
[2021-08-09] MEDS: fentaNYL Drip 2500mCg/250mlNS 250 ML IV SCH ×2 (12:30→23:25)
[2021-08-09] MEDS: NOREPINEPHRINE 8 MG/250ML KIT 250 ML IV SCH (12:45)
[2021-08-09] MEDS ORDERED: MICAFUNGIN SODIUM 100 MG in SODIUM CHL 0.9% 100 ML IV ONE (23:15)
[2021-08-09] MEDS: PROPOFOL 100 ML IV SCH (23:21)
[2021-08-10] VITALS (61 sets, daily range): BP systolic 97–117; BP diastolic 61–72
[2021-08-10] MEDS: LINEZOLID 600MG/300ML 300 ML IV SCH ×2 (01:35→13:00)
[2021-08-10] MEDS: ENOXAPARIN SOD 120 MG/0.8 ML SYRINGE SC SCH ×2 (02:00→14:00)
[2021-08-10 05:53] LABS: Hematocrit 33.3 % (41.0-53.0); Hemoglobin 11.4 g/dL (13.5-17.5); Mean Corpuscular Hemoglobin 32.3 pg (28.0-32.0); Mean Corpuscular Hgb Conc. 34.2 g/dL (32.0-36.0); Mean Corpuscular Volume 94.3 fL (80.0-100.0); Red Blood Cells 3.54 10^6/uL (4.5-5.90); Red Cell Distribution Width 12.9 % (11.8-14.3); White Blood Cell 10.1 10^3/uL (4.4-10.8)
[2021-08-10] MEDS: ACCU-CHEK COMFORT CURVE STRIP VI SCH ×4 (06:00→17:44)
[2021-08-10 06:06] LABS: INR 1.19 (0.9-1.15)
[2021-08-10 06:07] LABS: Potassium 3.4 mmol/L (3.5-5.1)
[2021-08-10 06:13] LABS: Basophils % (manual) 0 (0.0-2.0); Blast Cells 0; Metamyelocytes % 0; Myelocytes % 0; Promyelocytes % 0; Reactive Lymphocytes 0
[2021-08-10] MEDS: InsuLIN REG 1unit/0.01ml Soln (100units/ml) SC SCH ×4 (06:19→17:43)
[2021-08-10 06:22] LABS: Albumin 1.7 g/dL (3.4-5.0); CRP High Sensitivity 5.03 mg/dL (< 0.3); Calcium 6.1 mg/dL (8.5-10.1); Magnesium 2.6 mg/dL (1.6-2.6)
[2021-08-10] MEDS: MEROPENEM 1GM IVPB 100 ML IV SCH ×3 (06:28→21:46)
[2021-08-10 06:29] LABS: Total Protein 4.9 g/dL (6.4-8.2)
[2021-08-10] MEDS: NOREPINEPHRINE 8 MG/250ML KIT 250 ML IV SCH (06:33)
[2021-08-10] MEDS: PROPOFOL 100 ML IV SCH ×3 (06:34→21:50)
[2021-08-10 08:04] LABS: Band Neutrophils % (manual) 2; Eosinophils % (manual) 2 (0-7); Lymphocytes % (manual) 18 (10.0-50.0); Monocytes % (manual) 3 (0-12)
[2021-08-10] MEDS: CHOLECALCIFEROL (VITD3) 2,000 UNIT CAP/TAB PO SCH (10:00)
[2021-08-10] MEDS: SODIUM CHLOR 0.9% PF (SALINE LOCK) 10ML VIAL/SYR IV SCH ×2 (10:00→21:46)
[2021-08-10] MEDS: FUROSEMIDE 20 MG/2 ML VIAL IV SCH (10:00)
[2021-08-10] MEDS: ZINC SULFATE 220mg CAP or TAB PO SCH (10:00)
[2021-08-10] MEDS: ASCORBIC ACID 1,000 MG TAB PO SCH (10:00)
[2021-08-10] MEDS: PANTOPRAZOLE 40 MG/10 ML VIAL INJ IV SCH (10:00)
[2021-08-10] MEDS ORDERED: MICAFUNGIN SODIUM 100 MG in SODIUM CHL 0.9% 100 ML IV SCH (10:00)
[2021-08-10] MEDS: MIDAZOLAM DRIP 50 mg/50mL 50 ML IV SCH (21:02)
[2021-08-10] MEDS: fentaNYL Drip 2500mCg/250mlNS 250 ML IV SCH (21:48)
[2021-08-11] VITALS (84 sets, daily range): BP systolic 92–125; BP diastolic 51–79
[2021-08-11] MEDS: PROPOFOL 100 ML IV SCH ×3 (00:09→19:42)
[2021-08-11] MEDS: MIDAZOLAM DRIP 50 mg/50mL 50 ML IV SCH ×3 (00:10→19:41)
[2021-08-11] MEDS: LINEZOLID 600MG/300ML 300 ML IV SCH ×2 (01:13→13:00)
[2021-08-11] MEDS: ENOXAPARIN SOD 120 MG/0.8 ML SYRINGE SC SCH ×2 (01:58→14:00)
[2021-08-11 04:21] LABS: Basophils # (auto) 0 10 ^3/uL (0-0.2); Basophils % (auto) 0.3 % (0.0-2.0); Eosinophils # (auto) 0.1 10 ^3/uL (0-0.8); Eosinophils % (auto) 1.1 % (0.0-7.0); Hematocrit 36.2 % (41.0-53.0); Hemoglobin 11.8 g/dL (13.5-17.5); Lymphocytes # (auto) 0.9 10 ^3/uL (0.4-5.4); Lymphocytes % (auto) 8.5 % (10.0-50.0); Mean Corpuscular Hemoglobin 30.7 pg (28.0-32.0); Mean Corpuscular Hgb Conc. 32.7 g/dL (32.0-36.0); Mean Corpuscular Volume 93.9 fL (80.0-100.0); Monocytes # (auto) 0.7 10 ^3/uL (0-1.3); Monocytes % (auto) 6.1 % (0.0-12.0); Neutrophils # (auto) 9.3 10 ^3/uL (1.6-8.6); Red Blood Cells 3.86 10^6/uL (4.5-5.90)
[2021-08-11 04:41] LABS: Calcium 8.1 mg/dL (8.5-10.1); Potassium 4.4 mmol/L (3.5-5.1)
[2021-08-11] MEDS: InsuLIN REG 1unit/0.01ml Soln (100units/ml) SC SCH ×4 (06:00→18:04)
[2021-08-11] MEDS: ACCU-CHEK COMFORT CURVE STRIP VI SCH ×4 (06:10→18:04)
[2021-08-11] MEDS: MEROPENEM 1GM IVPB 100 ML IV SCH ×3 (06:11→22:12)
[2021-08-11] MEDS: ASCORBIC ACID 1,000 MG TAB PO SCH (10:00)
[2021-08-11] MEDS: PANTOPRAZOLE 40 MG/10 ML VIAL INJ IV SCH (10:00)
[2021-08-11] MEDS: SODIUM CHLOR 0.9% PF (SALINE LOCK) 10ML VIAL/SYR IV SCH ×2 (10:00→22:12)
[2021-08-11] MEDS: FUROSEMIDE 20 MG/2 ML VIAL IV SCH (10:00)
[2021-08-11] MEDS: CHOLECALCIFEROL (VITD3) 2,000 UNIT CAP/TAB PO SCH (10:00)
[2021-08-11] MEDS: ZINC SULFATE 220mg CAP or TAB PO SCH (10:00)
[2021-08-11] MEDS: NOREPINEPHRINE 8 MG/250ML KIT 250 ML IV SCH (23:10)
[2021-08-11] MEDS: fentaNYL Drip 2500mCg/250mlNS 250 ML IV SCH (23:11)
[2021-08-12] VITALS (96 sets, daily range): BP systolic 90–131; BP diastolic 52–82
[2021-08-12] MEDS: ACCU-CHEK COMFORT CURVE STRIP VI SCH ×4 (00:15→17:53)
[2021-08-12] MEDS: LINEZOLID 600MG/300ML 300 ML IV SCH ×2 (00:40→13:08)
[2021-08-12] MEDS: ENOXAPARIN SOD 120 MG/0.8 ML SYRINGE SC SCH ×2 (01:47→08:57)
[2021-08-12] MEDS: PROPOFOL 100 ML IV SCH (03:42)
[2021-08-12] MEDS: MIDAZOLAM DRIP 50 mg/50mL 50 ML IV SCH (03:43)
[2021-08-12] MEDS: InsuLIN REG 1unit/0.01ml Soln (100units/ml) SC SCH ×4 (05:31→17:53)
[2021-08-12] MEDS: MEROPENEM 1GM IVPB 100 ML IV SCH ×3 (05:32→22:00)
[2021-08-12 05:57] LABS: Basophils # (auto) 0.1 10 ^3/uL (0-0.2); Basophils % (auto) 1.2 % (0.0-2.0); Eosinophils # (auto) 0.4 10 ^3/uL (0-0.8); Eosinophils % (auto) 3.2 % (0.0-7.0); Hematocrit 34.1 % (41.0-53.0); Hemoglobin 11.1 g/dL (13.5-17.5); Lymphocytes # (auto) 1.3 10 ^3/uL (0.4-5.4); Lymphocytes % (auto) 11.7 % (10.0-50.0); Mean Corpuscular Hemoglobin 30.4 pg (28.0-32.0); Mean Corpuscular Hgb Conc. 32.5 g/dL (32.0-36.0); Mean Corpuscular Volume 93.4 fL (80.0-100.0); Monocytes # (auto) 0.5 10 ^3/uL (0-1.3); Monocytes % (auto) 4.8 % (0.0-12.0); Neutrophils # (auto) 8.8 10 ^3/uL (1.6-8.6); Neutrophils % (auto) 79.1 % (37.0-80.0); Nucleated Red Blood Cells % 0.1 %; Red Blood Cells 3.65 10^6/uL (4.5-5.90); Red Cell Distribution Width 12.9 % (11.8-14.3); White Blood Cell 11.2 10^3/uL (4.4-10.8)
[2021-08-12 06:14] LABS: Potassium 3.5 mmol/L (3.5-5.1)
[2021-08-12 06:19] LABS: BUN/Creatinine Ratio 19.3; Calcium 7.8 mg/dL (8.5-10.1)
[2021-08-12] MEDS: SODIUM CHLOR 0.9% PF (SALINE LOCK) 10ML VIAL/SYR IV SCH ×2 (08:56→22:00)
[2021-08-12] MEDS: FUROSEMIDE 20 MG/2 ML VIAL IV SCH (09:59)
[2021-08-12] MEDS: ZINC SULFATE 220mg CAP or TAB PO SCH (09:59)
[2021-08-12] MEDS: ASCORBIC ACID 1,000 MG TAB PO SCH (10:00)
[2021-08-12] MEDS: CHOLECALCIFEROL (VITD3) 2,000 UNIT CAP/TAB PO SCH (10:00)
[2021-08-12] MEDS: PANTOPRAZOLE 40 MG/10 ML VIAL INJ IV SCH (10:00)
[2021-08-13] VITALS (98 sets, daily range): BP systolic 90–127; BP diastolic 50–77
[2021-08-13] MEDS: ACCU-CHEK COMFORT CURVE STRIP VI SCH ×4 (00:29→18:03)
[2021-08-13] MEDS: LINEZOLID 600MG/300ML 300 ML IV SCH ×2 (00:30→13:03)
[2021-08-13] MEDS: ENOXAPARIN SOD 120 MG/0.8 ML SYRINGE SC SCH (00:38)
[2021-08-13] MEDS: PROPOFOL 100 ML IV SCH ×4 (01:48→23:13)
[2021-08-13] MEDS: NOREPINEPHRINE 8 MG/250ML KIT 250 ML IV SCH ×2 (01:48→21:20)
[2021-08-13] MEDS: MIDAZOLAM DRIP 50 mg/50mL 50 ML IV SCH ×3 (01:49→21:21)
[2021-08-13 04:58] LABS: Basophils # (auto) 0.1 10 ^3/uL (0-0.2); Basophils % (auto) 0.7 % (0.0-2.0); Eosinophils # (auto) 0.4 10 ^3/uL (0-0.8); Eosinophils % (auto) 3.7 % (0.0-7.0); Hematocrit 34.9 % (41.0-53.0); Hemoglobin 11.3 g/dL (13.5-17.5); Lymphocytes # (auto) 0.8 10 ^3/uL (0.4-5.4); Lymphocytes % (auto) 8.1 % (10.0-50.0); Mean Corpuscular Hemoglobin 30.5 pg (28.0-32.0); Mean Corpuscular Hgb Conc. 32.5 g/dL (32.0-36.0); Mean Corpuscular Volume 93.9 fL (80.0-100.0); Monocytes # (auto) 0.7 10 ^3/uL (0-1.3); Monocytes % (auto) 6.6 % (0.0-12.0); Neutrophils # (auto) 8.3 10 ^3/uL (1.6-8.6); Neutrophils % (auto) 80.9 % (37.0-80.0); Red Blood Cells 3.71 10^6/uL (4.5-5.90); Red Cell Distribution Width 13.1 % (11.8-14.3); White Blood Cell 10.3 10^3/uL (4.4-10.8)
[2021-08-13 05:11] LABS: Calcium 8.2 mg/dL (8.5-10.1); Potassium 3.6 mmol/L (3.5-5.1)
[2021-08-13 05:18] LABS: Bilirubin, Total 0.8 mg/dL (0.2-1.0)
[2021-08-13 05:20] LABS: INR 1.17 (0.9-1.15); Partial Thromboplastin Time 29.2 sec (23.6-33.0)
[2021-08-13] MEDS: InsuLIN REG 1unit/0.01ml Soln (100units/ml) SC SCH ×4 (06:00→18:00)
[2021-08-13] MEDS: MEROPENEM 1GM IVPB 100 ML IV SCH ×3 (06:06→21:53)
[2021-08-13] MEDS: PANTOPRAZOLE 40 MG/10 ML VIAL INJ IV SCH (08:05)
[2021-08-13] MEDS: ZINC SULFATE 220mg CAP or TAB PO SCH (08:05)
[2021-08-13] MEDS: SODIUM CHLOR 0.9% PF (SALINE LOCK) 10ML VIAL/SYR IV SCH ×2 (08:05→21:53)
[2021-08-13] MEDS: FUROSEMIDE 20 MG/2 ML VIAL IV SCH (08:05)
[2021-08-13] MEDS: ASCORBIC ACID 1,000 MG TAB PO SCH (08:06)
[2021-08-13] MEDS: CHOLECALCIFEROL (VITD3) 2,000 UNIT CAP/TAB PO SCH (08:06)
[2021-08-13] MEDS ORDERED: ENOXAPARIN SOD 80 MG/0.8ML SYRINGE SC ONE (10:30)
[2021-08-13] MEDS: fentaNYL Drip 2500mCg/250mlNS 250 ML IV SCH ×2 (12:44→21:23)
[2021-08-14] VITALS (100 sets, daily range): BP systolic 92–136; BP diastolic 53–91
[2021-08-14] MEDS: ACCU-CHEK COMFORT CURVE STRIP VI SCH ×5 (00:06→23:24)
[2021-08-14] MEDS: LINEZOLID 600MG/300ML 300 ML IV SCH (01:15)
[2021-08-14] MEDS: MIDAZOLAM DRIP 50 mg/50mL 50 ML IV SCH ×5 (03:46→23:41)
[2021-08-14 04:40] LABS: Basophils # (auto) 0.1 10 ^3/uL (0-0.2); Basophils % (auto) 0.8 % (0.0-2.0); Eosinophils # (auto) 0.4 10 ^3/uL (0-0.8); Eosinophils % (auto) 4.6 % (0.0-7.0); Hematocrit 33.3 % (41.0-53.0); Hemoglobin 10.9 g/dL (13.5-17.5); Lymphocytes % (auto) 11.7 % (10.0-50.0); Mean Corpuscular Hemoglobin 30.6 pg (28.0-32.0); Mean Corpuscular Hgb Conc. 32.9 g/dL (32.0-36.0); Mean Corpuscular Volume 93.1 fL (80.0-100.0); Monocytes # (auto) 0.6 10 ^3/uL (0-1.3); Monocytes % (auto) 6.9 % (0.0-12.0); Neutrophils # (auto) 6.6 10 ^3/uL (1.6-8.6); Nucleated Red Blood Cells % 0.1 %; Red Blood Cells 3.57 10^6/uL (4.5-5.90); Red Cell Distribution Width 13.4 % (11.8-14.3); White Blood Cell 8.7 10^3/uL (4.4-10.8)
[2021-08-14 05:02] LABS: Potassium 3.5 mmol/L (3.5-5.1)
[2021-08-14 05:11] LABS: Calcium 8.2 mg/dL (8.5-10.1)
[2021-08-14 05:39] LABS: BUN/Creatinine Ratio 24.5
[2021-08-14] MEDS: MEROPENEM 1GM IVPB 100 ML IV SCH (05:40)
[2021-08-14] MEDS: InsuLIN REG 1unit/0.01ml Soln (100units/ml) SC SCH ×5 (05:42→23:24)
[2021-08-14] MEDS: fentaNYL Drip 2500mCg/250mlNS 250 ML IV SCH ×2 (06:41→22:30)
[2021-08-14] MEDS: ZINC SULFATE 220mg CAP or TAB PO SCH (10:00)
[2021-08-14] MEDS: CHOLECALCIFEROL (VITD3) 2,000 UNIT CAP/TAB PO SCH (10:00)
[2021-08-14] MEDS: FUROSEMIDE 20 MG/2 ML VIAL IV SCH (10:00)
[2021-08-14] MEDS: ASCORBIC ACID 1,000 MG TAB PO SCH (10:00)
[2021-08-14] MEDS: SODIUM CHLOR 0.9% PF (SALINE LOCK) 10ML VIAL/SYR IV SCH ×2 (10:00→21:28)
[2021-08-14] MEDS: PANTOPRAZOLE 40 MG/10 ML VIAL INJ IV SCH (10:00)
[2021-08-14] MEDS ORDERED: POTASSIUM CHL 10MEQ/50ML 200 ML IV ONE (10:19)
[2021-08-14] MEDS: ENOXAPARIN SOD 80 MG/0.8ML SYRINGE SC SCH (11:08)
[2021-08-14] MEDS: PROPOFOL 100 ML IV SCH ×4 (14:34→21:30)
[2021-08-14] MEDS: ACETAMINOPHEN 500 MG TAB PO PRN (16:30)
[2021-08-14] MEDS: NOREPINEPHRINE 8 MG/250ML KIT 250 ML IV SCH (20:43)
[2021-08-15] VITALS (100 sets, daily range): BP systolic 86–141; BP diastolic 53–92
[2021-08-15] MEDS: ACETAMINOPHEN 500 MG TAB PO PRN ×3 (02:41→22:01)
[2021-08-15] MEDS: MIDAZOLAM DRIP 50 mg/50mL 50 ML IV SCH ×6 (02:42→22:23)
[2021-08-15 04:13] LABS: Basophils # (auto) 0.1 10 ^3/uL (0-0.2); Basophils % (auto) 0.9 % (0.0-2.0); Eosinophils # (auto) 0.5 10 ^3/uL (0-0.8); Eosinophils % (auto) 5.8 % (0.0-7.0); Hematocrit 32.2 % (41.0-53.0); Hemoglobin 10.6 g/dL (13.5-17.5); Lymphocytes # (auto) 1.1 10 ^3/uL (0.4-5.4); Lymphocytes % (auto) 12.9 % (10.0-50.0); Mean Corpuscular Hemoglobin 30.6 pg (28.0-32.0); Mean Corpuscular Volume 92.7 fL (80.0-100.0); Monocytes # (auto) 0.6 10 ^3/uL (0-1.3); Monocytes % (auto) 7.8 % (0.0-12.0); Neutrophils % (auto) 72.6 % (37.0-80.0); Red Blood Cells 3.48 10^6/uL (4.5-5.90); Red Cell Distribution Width 13.5 % (11.8-14.3); White Blood Cell 8.3 10^3/uL (4.4-10.8)
[2021-08-15 04:50] LABS: Calcium 8.4 mg/dL (8.5-10.1); Potassium 3.7 mmol/L (3.5-5.1)
[2021-08-15 04:55] LABS: BUN/Creatinine Ratio 24.3
[2021-08-15] MEDS: ACCU-CHEK COMFORT CURVE STRIP VI SCH ×4 (05:48→23:59)
[2021-08-15] MEDS: InsuLIN REG 1unit/0.01ml Soln (100units/ml) SC SCH ×4 (05:49→23:59)
[2021-08-15] MEDS: fentaNYL Drip 2500mCg/250mlNS 250 ML IV SCH ×2 (05:50→17:57)
[2021-08-15] MEDS: PROPOFOL 100 ML IV SCH ×3 (06:27→18:01)
[2021-08-15] MEDS: CHOLECALCIFEROL (VITD3) 2,000 UNIT CAP/TAB PO SCH (09:41)
[2021-08-15] MEDS: ENOXAPARIN SOD 80 MG/0.8ML SYRINGE SC SCH (09:41)
[2021-08-15] MEDS: ASCORBIC ACID 1,000 MG TAB PO SCH (09:41)
[2021-08-15] MEDS: ZINC SULFATE 220mg CAP or TAB PO SCH (09:41)
[2021-08-15] MEDS: PANTOPRAZOLE 40 MG/10 ML VIAL INJ IV SCH (09:41)
[2021-08-15] MEDS: SODIUM CHLOR 0.9% PF (SALINE LOCK) 10ML VIAL/SYR IV SCH ×2 (09:42→22:01)
[2021-08-15] MEDS: FUROSEMIDE 20 MG/2 ML VIAL IV SCH (09:42)
[2021-08-15] MEDS: NOREPINEPHRINE 8 MG/250ML KIT 250 ML IV SCH (09:43)
[2021-08-15] MEDS ORDERED: LACTULOSE 20Gm/30ML SOLN PO ONE (11:15)
[2021-08-15] MEDS: LACTULOSE 20Gm/30ML SOLN PO SCH (22:02)
[2021-08-16] VITALS (93 sets, daily range): BP systolic 86–131; BP diastolic 55–87
[2021-08-16] MEDS: PROPOFOL 100 ML IV SCH ×3 (00:38→20:00)
[2021-08-16 04:35] LABS: Basophils # (auto) 0.1 10 ^3/uL (0-0.2); Basophils % (auto) 0.8 % (0.0-2.0); Eosinophils # (auto) 0.5 10 ^3/uL (0-0.8); Eosinophils % (auto) 5.4 % (0.0-7.0); Hematocrit 37.6 % (41.0-53.0); Hemoglobin 12.3 g/dL (13.5-17.5); Lymphocytes # (auto) 1.4 10 ^3/uL (0.4-5.4); Lymphocytes % (auto) 16.6 % (10.0-50.0); Mean Corpuscular Hemoglobin 30.9 pg (28.0-32.0); Mean Corpuscular Hgb Conc. 32.8 g/dL (32.0-36.0); Monocytes # (auto) 0.7 10 ^3/uL (0-1.3); Monocytes % (auto) 8.3 % (0.0-12.0); Neutrophils # (auto) 5.9 10 ^3/uL (1.6-8.6); Neutrophils % (auto) 68.9 % (37.0-80.0); Red Cell Distribution Width 13.8 % (11.8-14.3); White Blood Cell 8.6 10^3/uL (4.4-10.8)
[2021-08-16 04:54] LABS: Albumin 1.9 g/dL (3.4-5.0); BUN/Creatinine Ratio 14.5; Calcium 8.3 mg/dL (8.5-10.1)
[2021-08-16 04:56] LABS: Bilirubin, Total 0.8 mg/dL (0.2-1.0); Total Protein 5.7 g/dL (6.4-8.2)
[2021-08-16 04:57] LABS: Potassium 4.2 mmol/L (3.5-5.1)
[2021-08-16] MEDS: ACCU-CHEK COMFORT CURVE STRIP VI SCH ×3 (05:45→18:17)
[2021-08-16] MEDS: InsuLIN REG 1unit/0.01ml Soln (100units/ml) SC SCH ×3 (05:45→18:00)
[2021-08-16] MEDS: PANTOPRAZOLE 40 MG/10 ML VIAL INJ IV SCH (10:54)
[2021-08-16] MEDS: ENOXAPARIN SOD 80 MG/0.8ML SYRINGE SC SCH (10:59)
[2021-08-16] MEDS: LACTULOSE 20Gm/30ML SOLN PO SCH ×2 (10:59→22:00)
[2021-08-16] MEDS: SODIUM CHLOR 0.9% PF (SALINE LOCK) 10ML VIAL/SYR IV SCH ×2 (10:59→22:00)
[2021-08-16] MEDS: CHOLECALCIFEROL (VITD3) 2,000 UNIT CAP/TAB PO SCH (10:59)
[2021-08-16] MEDS ORDERED: VANCOMYCIN PER PHARMACY 0 MG IV SCH (11:00)
[2021-08-16] MEDS: fentaNYL Drip 2500mCg/250mlNS 250 ML IV SCH (11:18)
[2021-08-16] MEDS ORDERED: VANCOMYCIN 1GM/250ML 250 ML IV ONE ×2 (11:30→13:45)
[2021-08-16] MEDS: FREE WATER GT SCH ×3 (12:38→22:51)
[2021-08-16] MEDS: VANCOMYCIN 1GM/250ML 250 ML IV SCH (20:00)
[2021-08-16] MEDS: MIDAZOLAM DRIP 50 mg/50mL 50 ML IV SCH (22:52)
[2021-08-17] VITALS (85 sets, daily range): BP systolic 87–146; BP diastolic 55–94
[2021-08-17] MEDS: VANCOMYCIN 1GM/250ML 250 ML IV SCH ×4 (01:43→20:00)
[2021-08-17] MEDS: PROPOFOL 100 ML IV SCH ×3 (01:52→21:05)
[2021-08-17] MEDS: MIDAZOLAM DRIP 50 mg/50mL 50 ML IV SCH ×2 (01:53→21:05)
[2021-08-17 05:46] LABS: Basophils # (auto) 0 10 ^3/uL (0-0.2); Basophils % (auto) 0.5 % (0.0-2.0); Eosinophils # (auto) 0.6 10 ^3/uL (0-0.8); Eosinophils % (auto) 6.3 % (0.0-7.0); Hematocrit 32.3 % (41.0-53.0); Hemoglobin 10.6 g/dL (13.5-17.5); Lymphocytes # (auto) 1.5 10 ^3/uL (0.4-5.4); Lymphocytes % (auto) 16.2 % (10.0-50.0); Mean Corpuscular Hemoglobin 30.6 pg (28.0-32.0); Mean Corpuscular Hgb Conc. 32.9 g/dL (32.0-36.0); Monocytes # (auto) 0.7 10 ^3/uL (0-1.3); Monocytes % (auto) 7.7 % (0.0-12.0); Neutrophils # (auto) 6.2 10 ^3/uL (1.6-8.6); Neutrophils % (auto) 69.3 % (37.0-80.0); Nucleated Red Blood Cells % 0.1 %; Red Blood Cells 3.47 10^6/uL (4.5-5.90); Red Cell Distribution Width 13.7 % (11.8-14.3)
[2021-08-17] MEDS: ACCU-CHEK COMFORT CURVE STRIP VI SCH ×4 (06:00→18:00)
[2021-08-17] MEDS: InsuLIN REG 1unit/0.01ml Soln (100units/ml) SC SCH ×4 (06:00→18:00)
[2021-08-17] MEDS: FREE WATER GT SCH ×3 (06:00→18:00)
[2021-08-17] MEDS: fentaNYL Drip 2500mCg/250mlNS 250 ML IV SCH ×2 (06:20→21:06)
[2021-08-17] MEDS: LACTULOSE 20Gm/30ML SOLN PO SCH ×2 (10:00→21:04)
[2021-08-17] MEDS: SODIUM CHLOR 0.9% PF (SALINE LOCK) 10ML VIAL/SYR IV SCH ×2 (10:00→21:04)
[2021-08-17] MEDS: ENOXAPARIN SOD 80 MG/0.8ML SYRINGE SC SCH (10:00)
[2021-08-17] MEDS: CHOLECALCIFEROL (VITD3) 2,000 UNIT CAP/TAB PO SCH (10:00)
[2021-08-17] MEDS: PANTOPRAZOLE 40 MG/10 ML VIAL INJ IV SCH (10:00)
[2021-08-17 11:39] LABS: INR 1.06 (0.9-1.15)
[2021-08-17] MEDS: NOREPINEPHRINE 8 MG/250ML KIT 250 ML IV SCH (15:30)
[2021-08-18] VITALS (96 sets, daily range): BP systolic 84–156; BP diastolic 49–100
[2021-08-18] MEDS: FREE WATER GT SCH ×4 (00:21→18:00)
[2021-08-18] MEDS: PROPOFOL 100 ML IV SCH ×4 (00:21→20:28)
[2021-08-18] MEDS: ACCU-CHEK COMFORT CURVE STRIP VI SCH ×4 (00:22→18:00)
[2021-08-18] MEDS: MIDAZOLAM DRIP 50 mg/50mL 50 ML IV SCH ×3 (01:32→20:29)
[2021-08-18] MEDS: ACETAMINOPHEN 500 MG TAB PO PRN (01:33)
[2021-08-18] MEDS: VANCOMYCIN 1GM/250ML 250 ML IV SCH ×4 (01:33→20:28)
[2021-08-18] MEDS: NOREPINEPHRINE 8 MG/250ML KIT 250 ML IV SCH (02:00)
[2021-08-18 03:54] LABS: Basophils # (auto) 0 10 ^3/uL (0-0.2); Basophils % (auto) 0.3 % (0.0-2.0); Eosinophils # (auto) 0.7 10 ^3/uL (0-0.8); Eosinophils % (auto) 7.3 % (0.0-7.0); Hematocrit 32.5 % (41.0-53.0); Hemoglobin 10.7 g/dL (13.5-17.5); Lymphocytes # (auto) 1.4 10 ^3/uL (0.4-5.4); Lymphocytes % (auto) 14.5 % (10.0-50.0); Mean Corpuscular Hemoglobin 30.4 pg (28.0-32.0); Mean Corpuscular Hgb Conc. 32.8 g/dL (32.0-36.0); Mean Corpuscular Volume 92.8 fL (80.0-100.0); Monocytes # (auto) 0.7 10 ^3/uL (0-1.3); Monocytes % (auto) 7.2 % (0.0-12.0); Neutrophils % (auto) 70.7 % (37.0-80.0); Nucleated Red Blood Cells % 0.1 %; Red Cell Distribution Width 13.5 % (11.8-14.3); White Blood Cell 9.9 10^3/uL (4.4-10.8)
[2021-08-18 05:38] LABS: BUN/Creatinine Ratio 12.7; Calcium 8.6 mg/dL (8.5-10.1); Phosphorus 3.7 mg/dL (2.5-4.90); Potassium 3.1 mmol/L (3.5-5.1)
[2021-08-18] MEDS: InsuLIN REG 1unit/0.01ml Soln (100units/ml) SC SCH ×4 (05:48→18:00)
[2021-08-18] MEDS: fentaNYL Drip 2500mCg/250mlNS 250 ML IV SCH ×2 (06:40→20:30)
[2021-08-18] MEDS: LACTULOSE 20Gm/30ML SOLN PO SCH ×2 (10:37→21:42)
[2021-08-18] MEDS: PANTOPRAZOLE 40 MG/10 ML VIAL INJ IV SCH (10:37)
[2021-08-18] MEDS: SODIUM CHLOR 0.9% PF (SALINE LOCK) 10ML VIAL/SYR IV SCH ×2 (10:37→21:42)
[2021-08-18] MEDS: ENOXAPARIN SOD 80 MG/0.8ML SYRINGE SC SCH (10:37)
[2021-08-18] MEDS: CHOLECALCIFEROL (VITD3) 2,000 UNIT CAP/TAB PO SCH (10:37)
[2021-08-18] MEDS: POTASSIUM CHL 10MEQ/50ML 50 ML IV SCH ×3 (11:59→14:00)
[2021-08-18] MEDS: Jevity 1.2 Cal/Fiber 1 Liter GT SCH (20:29)
[2021-08-19] VITALS (97 sets, daily range): BP systolic 79–161; BP diastolic 41–99
[2021-08-19] MEDS: FREE WATER GT SCH (00:15)
[2021-08-19] MEDS: ACCU-CHEK COMFORT CURVE STRIP VI SCH ×4 (00:15→23:29)
[2021-08-19] MEDS: InsuLIN REG 1unit/0.01ml Soln (100units/ml) SC SCH ×5 (00:21→23:28)
[2021-08-19] MEDS: VANCOMYCIN 1GM/250ML 250 ML IV SCH ×4 (01:50→20:07)
[2021-08-19] MEDS: MIDAZOLAM DRIP 50 mg/50mL 50 ML IV SCH ×3 (01:51→23:31)
[2021-08-19] MEDS: PROPOFOL 100 ML IV SCH ×2 (01:51→20:00)
[2021-08-19 03:41] LABS: Basophils # (auto) 0 10 ^3/uL (0-0.2); Basophils % (auto) 0.3 % (0.0-2.0); Eosinophils # (auto) 0.1 10 ^3/uL (0-0.8); Eosinophils % (auto) 1.2 % (0.0-7.0); Hematocrit 31.4 % (41.0-53.0); Hemoglobin 10.5 g/dL (13.5-17.5); Lymphocytes # (auto) 1.2 10 ^3/uL (0.4-5.4); Mean Corpuscular Hemoglobin 30.7 pg (28.0-32.0); Mean Corpuscular Hgb Conc. 33.4 g/dL (32.0-36.0); Mean Corpuscular Volume 91.9 fL (80.0-100.0); Monocytes # (auto) 0.7 10 ^3/uL (0-1.3); Monocytes % (auto) 7.3 % (0.0-12.0); Neutrophils # (auto) 7.3 10 ^3/uL (1.6-8.6); Neutrophils % (auto) 78.2 % (37.0-80.0); Red Blood Cells 3.42 10^6/uL (4.5-5.90); Red Cell Distribution Width 13.5 % (11.8-14.3); White Blood Cell 9.4 10^3/uL (4.4-10.8)
[2021-08-19] MEDS: NOREPINEPHRINE 8 MG/250ML KIT 250 ML IV SCH (07:00)
[2021-08-19] MEDS: PANTOPRAZOLE 40 MG/10 ML VIAL INJ IV SCH (09:52)
[2021-08-19] MEDS: LACTULOSE 20Gm/30ML SOLN PO SCH ×2 (09:52→22:00)
[2021-08-19] MEDS: CHOLECALCIFEROL (VITD3) 2,000 UNIT CAP/TAB PO SCH (09:53)
[2021-08-19] MEDS: ENOXAPARIN SOD 80 MG/0.8ML SYRINGE SC SCH (09:53)
[2021-08-19] MEDS: SODIUM CHLOR 0.9% PF (SALINE LOCK) 10ML VIAL/SYR IV SCH ×2 (10:00→22:00)
[2021-08-19 10:38] LABS: Calcium 8.4 mg/dL (8.5-10.1); Potassium 3.1 mmol/L (3.5-5.1)
[2021-08-19] MEDS: POTASSIUM CHL 10MEQ/50ML 50 ML IV SCH ×4 (11:45→14:45)
[2021-08-19] MEDS: fentaNYL Drip 2500mCg/250mlNS 250 ML IV SCH (20:00)
[2021-08-19] MEDS: ENOXAPARIN SOD 100 MG/1 ML SYRINGE SC SCH (22:00)
[2021-08-20] VITALS (87 sets, daily range): BP systolic 80–162; BP diastolic 46–110
[2021-08-20] MEDS: PROPOFOL 100 ML IV SCH ×3 (00:44→20:35)
[2021-08-20] MEDS: ACETAMINOPHEN 500 MG TAB PO PRN ×2 (00:45→18:17)
[2021-08-20] MEDS: NOREPINEPHRINE 8 MG/250ML KIT 250 ML IV SCH (02:00)
[2021-08-20] MEDS ORDERED: PHENYLEPHRINE HCL 10 MG/ML VL ONE (05:26)
[2021-08-20 05:52] LABS: Basophils # (auto) 0.1 10 ^3/uL (0-0.2); Basophils % (auto) 1.1 % (0.0-2.0); Eosinophils # (auto) 0.5 10 ^3/uL (0-0.8); Eosinophils % (auto) 4.6 % (0.0-7.0); Hematocrit 34.6 % (41.0-53.0); Hemoglobin 11.5 g/dL (13.5-17.5); Lymphocytes # (auto) 2.2 10 ^3/uL (0.4-5.4); Lymphocytes % (auto) 20.2 % (10.0-50.0); Mean Corpuscular Hemoglobin 31.1 pg (28.0-32.0); Mean Corpuscular Hgb Conc. 33.4 g/dL (32.0-36.0); Monocytes # (auto) 0.8 10 ^3/uL (0-1.3); Monocytes % (auto) 7.8 % (0.0-12.0); Neutrophils # (auto) 7.3 10 ^3/uL (1.6-8.6); Neutrophils % (auto) 66.3 % (37.0-80.0); Nucleated Red Blood Cells % 0.1 %; Red Blood Cells 3.72 10^6/uL (4.5-5.90); White Blood Cell 10.9 10^3/uL (4.4-10.8)
[2021-08-20] MEDS: InsuLIN REG 1unit/0.01ml Soln (100units/ml) SC SCH ×3 (06:00→18:00)
[2021-08-20] MEDS: VASOPRESSIN 50 UNITS in D5W 5% 247.5 ML IV SCH (07:45)
[2021-08-20] MEDS: VANCOMYCIN 1GM/250ML 250 ML IV SCH ×2 (08:00→14:00)
[2021-08-20] MEDS: LACTULOSE 20Gm/30ML SOLN PO SCH ×2 (10:00→22:19)
[2021-08-20] MEDS: CHOLECALCIFEROL (VITD3) 2,000 UNIT CAP/TAB PO SCH (10:00)
[2021-08-20] MEDS: ENOXAPARIN SOD 100 MG/1 ML SYRINGE SC SCH (10:00)
[2021-08-20] MEDS: PANTOPRAZOLE 40 MG/10 ML VIAL INJ IV SCH (10:00)
[2021-08-20] MEDS: SODIUM CHLOR 0.9% PF (SALINE LOCK) 10ML VIAL/SYR IV SCH ×2 (10:00→22:22)
[2021-08-20 10:40] LABS: BUN/Creatinine Ratio 16.3; Calcium 8.4 mg/dL (8.5-10.1)
[2021-08-20] MEDS: ACCU-CHEK COMFORT CURVE STRIP VI SCH ×2 (12:00→18:14)
[2021-08-20] MEDS ORDERED: BISACODYL 10 MG RECT SUPP PR ONE (15:45)
[2021-08-20] MEDS: NYSTATIN (MOUTH-THROAT) 500,000 UNITS/5 ML SUSP MT SCH ×2 (18:11→22:22)
[2021-08-20] MEDS: fentaNYL Drip 2500mCg/250mlNS 250 ML IV SCH ×2 (18:12→20:34)
[2021-08-20] MEDS: MIDAZOLAM DRIP 50 mg/50mL 50 ML IV SCH ×2 (18:13→20:35)
[2021-08-20] MEDS ORDERED: QUEtiapine FUMARATE 25 MG TAB PO SCH (22:00)
[2021-08-20] MEDS: ENOXAPARIN SOD 120 MG/0.8 ML SYRINGE SC SCH (22:19)
[2021-08-21] VITALS (86 sets, daily range): BP systolic 70–164; BP diastolic 40–101
[2021-08-21] MEDS: Jevity 1.2 Cal/Fiber 1 Liter GT SCH (00:44)
[2021-08-21] MEDS: PROPOFOL 100 ML IV SCH ×3 (00:45→05:36)
[2021-08-21] MEDS: MIDAZOLAM DRIP 50 mg/50mL 50 ML IV SCH ×2 (00:45→05:37)
[2021-08-21] MEDS: NOREPINEPHRINE 8 MG/250ML KIT 250 ML IV SCH ×2 (02:00→19:36)
[2021-08-21 04:26] LABS: Basophils # (auto) 0.1 10 ^3/uL (0-0.2); Basophils % (auto) 0.9 % (0.0-2.0); Eosinophils # (auto) 0.5 10 ^3/uL (0-0.8); Eosinophils % (auto) 4.2 % (0.0-7.0); Hematocrit 32.9 % (41.0-53.0); Hemoglobin 10.8 g/dL (13.5-17.5); Lymphocytes # (auto) 1.5 10 ^3/uL (0.4-5.4); Lymphocytes % (auto) 14.2 % (10.0-50.0); Mean Corpuscular Hemoglobin 30.5 pg (28.0-32.0); Mean Corpuscular Hgb Conc. 32.8 g/dL (32.0-36.0); Mean Corpuscular Volume 92.9 fL (80.0-100.0); Monocytes # (auto) 0.7 10 ^3/uL (0-1.3); Monocytes % (auto) 6.5 % (0.0-12.0); Neutrophils % (auto) 74.2 % (37.0-80.0); Red Blood Cells 3.54 10^6/uL (4.5-5.90); Red Cell Distribution Width 13.6 % (11.8-14.3); White Blood Cell 10.8 10^3/uL (4.4-10.8)
[2021-08-21] MEDS: ACETAMINOPHEN 500 MG TAB PO PRN ×3 (05:34→23:18)
[2021-08-21] MEDS: InsuLIN REG 1unit/0.01ml Soln (100units/ml) SC SCH ×2 (05:35)
[2021-08-21] MEDS: ACCU-CHEK COMFORT CURVE STRIP VI SCH ×2 (05:35)
[2021-08-21] MEDS: NYSTATIN (MOUTH-THROAT) 500,000 UNITS/5 ML SUSP MT SCH ×4 (06:10→22:01)
[2021-08-21] MEDS: VASOPRESSIN 50 UNITS in D5W 5% 247.5 ML IV SCH (07:43)
[2021-08-21] MEDS: PANTOPRAZOLE 40 MG/10 ML VIAL INJ IV SCH (10:00)
[2021-08-21] MEDS ORDERED: BISACODYL 10 MG RECT SUPP PR PRN (10:00)
[2021-08-21] MEDS: ENOXAPARIN SOD 120 MG/0.8 ML SYRINGE SC SCH ×2 (10:00→22:02)
[2021-08-21] MEDS: CHOLECALCIFEROL (VITD3) 2,000 UNIT CAP/TAB PO SCH (10:00)
[2021-08-21] MEDS: SODIUM CHLOR 0.9% PF (SALINE LOCK) 10ML VIAL/SYR IV SCH ×2 (10:16→21:51)
[2021-08-21] MEDS ORDERED: ROCURONIUM 10MG/ML 10ML VIAL IV PRN (10:30)
[2021-08-21] MEDS: fentaNYL Drip 2500mCg/250mlNS 250 ML IV SCH (19:34)
[2021-08-22] VITALS (77 sets, daily range): BP systolic 90–147; BP diastolic 48–92
[2021-08-22 04:14] LABS: Basophils # (auto) 0.2 10 ^3/uL (0-0.2); Basophils % (auto) 1.4 % (0.0-2.0); Eosinophils # (auto) 0.4 10 ^3/uL (0-0.8); Eosinophils % (auto) 2.6 % (0.0-7.0); Hematocrit 32.4 % (41.0-53.0); Hemoglobin 10.9 g/dL (13.5-17.5); Lymphocytes # (auto) 1.9 10 ^3/uL (0.4-5.4); Lymphocytes % (auto) 13.4 % (10.0-50.0); Mean Corpuscular Hemoglobin 31.3 pg (28.0-32.0); Mean Corpuscular Hgb Conc. 33.7 g/dL (32.0-36.0); Mean Corpuscular Volume 92.9 fL (80.0-100.0); Monocytes # (auto) 0.7 10 ^3/uL (0-1.3); Monocytes % (auto) 5.3 % (0.0-12.0); Neutrophils # (auto) 10.8 10 ^3/uL (1.6-8.6); Neutrophils % (auto) 77.3 % (37.0-80.0); Nucleated Red Blood Cells % 0.5 %; Red Blood Cells 3.48 10^6/uL (4.5-5.90); Red Cell Distribution Width 14.1 % (11.8-14.3); White Blood Cell 13.9 10^3/uL (4.4-10.8)
[2021-08-22] MEDS: MIDAZOLAM DRIP 50 mg/50mL 50 ML IV SCH ×2 (04:23→21:32)
[2021-08-22] MEDS: fentaNYL Drip 2500mCg/250mlNS 250 ML IV SCH (05:48)
[2021-08-22] MEDS: PROPOFOL 100 ML IV SCH (05:49)
[2021-08-22] MEDS: NYSTATIN (MOUTH-THROAT) 500,000 UNITS/5 ML SUSP MT SCH ×4 (06:39→21:31)
[2021-08-22] MEDS: VASOPRESSIN 50 UNITS in D5W 5% 247.5 ML IV SCH (07:15)
[2021-08-22] MEDS: CHOLECALCIFEROL (VITD3) 2,000 UNIT CAP/TAB PO SCH (10:03)
[2021-08-22] MEDS: PANTOPRAZOLE 40 MG/10 ML VIAL INJ IV SCH (10:03)
[2021-08-22] MEDS: ENOXAPARIN SOD 120 MG/0.8 ML SYRINGE SC SCH ×2 (10:03→21:32)
[2021-08-22] MEDS: SODIUM CHLOR 0.9% PF (SALINE LOCK) 10ML VIAL/SYR IV SCH ×2 (10:03→21:31)
[2021-08-22] MEDS: NOREPINEPHRINE 8 MG/250ML KIT 250 ML IV SCH (21:38)
[2021-08-22] MEDS: ACETAMINOPHEN 500 MG TAB PO PRN (23:28)
[2021-08-23] VITALS (78 sets, daily range): BP systolic 84–152; BP diastolic 48–94
[2021-08-23] MEDS: fentaNYL Drip 2500mCg/250mlNS 250 ML IV SCH ×2 (02:20→16:00)
[2021-08-23 04:24] LABS: Basophils # (auto) 0.1 10 ^3/uL (0-0.2); Eosinophils # (auto) 0.5 10 ^3/uL (0-0.8); Hematocrit 28.8 % (41.0-53.0); Hemoglobin 9.9 g/dL (13.5-17.5); Monocytes # (auto) 0.6 10 ^3/uL (0-1.3)
[2021-08-23 04:28] LABS: Eosinophils % (auto) 5.9 % (0.0-7.0); Lymphocytes # (auto) 1.5 10 ^3/uL (0.4-5.4); Lymphocytes % (auto) 16.4 % (10.0-50.0); Mean Corpuscular Hemoglobin 32.2 pg (28.0-32.0); Mean Corpuscular Hgb Conc. 34.5 g/dL (32.0-36.0); Mean Corpuscular Volume 93.1 fL (80.0-100.0); Monocytes % (auto) 6.1 % (0.0-12.0); Neutrophils # (auto) 6.4 10 ^3/uL (1.6-8.6); Neutrophils % (auto) 70.6 % (37.0-80.0); Nucleated Red Blood Cells % 0.2 %; Red Blood Cells 3.09 10^6/uL (4.5-5.90); Red Cell Distribution Width 14.1 % (11.8-14.3)
[2021-08-23 04:38] LABS: Potassium 3.3 mmol/L (3.5-5.1)
[2021-08-23 04:47] LABS: Albumin 1.7 g/dL (3.4-5.0); BUN/Creatinine Ratio 7.7; Bilirubin, Total 0.8 mg/dL (0.2-1.0); Calcium 7.6 mg/dL (8.5-10.1); Magnesium 2.1 mg/dL (1.6-2.6); Phosphorus 3.2 mg/dL (2.5-4.90); Total Protein 4.8 g/dL (6.4-8.2)
[2021-08-23] MEDS: PROPOFOL 100 ML IV SCH ×3 (04:50→17:26)
[2021-08-23] MEDS: NYSTATIN (MOUTH-THROAT) 500,000 UNITS/5 ML SUSP MT SCH ×4 (05:49→20:31)
[2021-08-23] MEDS: VASOPRESSIN 50 UNITS in D5W 5% 247.5 ML IV SCH ×2 (06:11→22:30)
[2021-08-23] MEDS: SODIUM CHLOR 0.9% PF (SALINE LOCK) 10ML VIAL/SYR IV SCH ×2 (08:55→20:31)
[2021-08-23] MEDS: CHOLECALCIFEROL (VITD3) 2,000 UNIT CAP/TAB PO SCH (08:55)
[2021-08-23] MEDS: ENOXAPARIN SOD 120 MG/0.8 ML SYRINGE SC SCH ×2 (08:55→20:31)
[2021-08-23] MEDS: PANTOPRAZOLE 40 MG/10 ML VIAL INJ IV SCH (08:55)
[2021-08-23] MEDS: MIDAZOLAM DRIP 50 mg/50mL 50 ML IV SCH ×2 (08:56→17:27)
[2021-08-23] MEDS: ACETAMINOPHEN 500 MG TAB PO PRN (09:00)
[2021-08-23] MEDS: SODIUM CHLORIDE 0.9% 1,000 ML IV SCH (15:48)
[2021-08-23] MEDS: NOREPINEPHRINE 8 MG/250ML KIT 250 ML IV SCH (17:26)
[2021-08-23] MEDS: POTASSIUM CHL 10MEQ/50ML 50 ML IV SCH ×4 (17:40→22:29)
[2021-08-23 18:38] LABS: Urine Bacteria FEW /hpf (None Seen); Urine Blood TRACE /uL (Negative); Urine Budding Yeast MANY /hpf (None Seen); Urine Mucus FEW (None Seen); Urine Specific Gravity 1.012 (1.001-1.035); Urine WBC 175 /hpf (0 - 3)
[2021-08-23] MEDS ORDERED: POTASSIUM CHL 10MEQ/50ML 50 ML IV ONE (19:43)
[2021-08-23] MEDS ORDERED: POTASSIUM CHL 10MEQ/50ML 100 ML IV ONE (21:17)
[2021-08-23] MEDS: ALBUTEROL SULF 2.5 MG/0.5ML(0.5%) NEB SOLN NEB SCH (22:51)
[2021-08-23] MEDS: ACETYLCYSTEINE 20%(200MG/ML) SOL 4ML NEB SCH (22:51)
[2021-08-24] VITALS (94 sets, daily range): BP systolic 85–146; BP diastolic 43–93
[2021-08-24 03:59] LABS: Basophils # (auto) 0.1 10 ^3/uL (0-0.2); Basophils % (auto) 1.2 % (0.0-2.0); Eosinophils # (auto) 0.5 10 ^3/uL (0-0.8); Eosinophils % (auto) 6.2 % (0.0-7.0); Hematocrit 30.1 % (41.0-53.0); Hemoglobin 9.9 g/dL (13.5-17.5); Lymphocytes # (auto) 1.5 10 ^3/uL (0.4-5.4); Lymphocytes % (auto) 20.2 % (10.0-50.0); Mean Corpuscular Hemoglobin 30.4 pg (28.0-32.0); Mean Corpuscular Hgb Conc. 33.1 g/dL (32.0-36.0); Monocytes # (auto) 0.6 10 ^3/uL (0-1.3); Monocytes % (auto) 7.4 % (0.0-12.0); Neutrophils # (auto) 4.9 10 ^3/uL (1.6-8.6); Nucleated Red Blood Cells % 0.1 %; Red Blood Cells 3.27 10^6/uL (4.5-5.90); Red Cell Distribution Width 13.5 % (11.8-14.3); White Blood Cell 7.5 10^3/uL (4.4-10.8)
[2021-08-24 04:09] LABS: Albumin 1.7 g/dL (3.4-5.0); Calcium 8.5 mg/dL (8.5-10.1); Potassium 3.5 mmol/L (3.5-5.1)
[2021-08-24 04:15] LABS: BUN/Creatinine Ratio 9.3; Bilirubin, Total 0.5 mg/dL (0.2-1.0); Total Protein 5.6 g/dL (6.4-8.2)
[2021-08-24] MEDS: SODIUM CHLORIDE 0.9% 1,000 ML IV SCH ×2 (05:38→13:15)
[2021-08-24] MEDS: NYSTATIN (MOUTH-THROAT) 500,000 UNITS/5 ML SUSP MT SCH ×4 (05:38→20:54)
[2021-08-24] MEDS: PROPOFOL 100 ML IV SCH ×4 (09:00→18:00)
[2021-08-24] MEDS: MIDAZOLAM DRIP 50 mg/50mL 50 ML IV SCH ×4 (09:00→18:00)
[2021-08-24] MEDS: PANTOPRAZOLE 40 MG/10 ML VIAL INJ IV SCH (09:35)
[2021-08-24] MEDS: SODIUM CHLOR 0.9% PF (SALINE LOCK) 10ML VIAL/SYR IV SCH ×2 (09:35→19:58)
[2021-08-24] MEDS: CHOLECALCIFEROL (VITD3) 2,000 UNIT CAP/TAB PO SCH (09:35)
[2021-08-24] MEDS: ENOXAPARIN SOD 120 MG/0.8 ML SYRINGE SC SCH ×2 (09:36→20:55)
[2021-08-24] MEDS: ACETAMINOPHEN 500 MG TAB PO PRN ×2 (09:56→23:55)
[2021-08-24] MEDS: fentaNYL Drip 2500mCg/250mlNS 250 ML IV SCH (11:12)
[2021-08-24] MEDS ORDERED: FLUCONAZOLE 200MG/100ML 100 ML IV ONE (13:15)
[2021-08-24] MEDS: AMPICILLIN & SULBACTAM SODIUM 3 GM in SODIUM CHL 0.9% 100 ML IV SCH ×2 (14:34→19:30)
[2021-08-24] MEDS ORDERED: TPN PER PHARMACY 0 ML IV SCH (15:15)
[2021-08-24] MEDS: FLUCONAZOLE 200MG/100ML 100 ML IV SCH ×2 (15:56→17:00)
[2021-08-24] MEDS: ALBUTEROL SULF 2.5 MG/0.5ML(0.5%) NEB SOLN NEB SCH ×2 (16:42→16:44)
[2021-08-24] MEDS: ACETYLCYSTEINE 20%(200MG/ML) SOL 4ML NEB SCH ×2 (16:43→19:22)
[2021-08-24] MEDS ORDERED: AMINO ACID INFUSION IN D10W 1,000 ML IV NR (20:00)
[2021-08-24] MEDS: GLYCOPYRROLATE 0.2 MG/ML 1ML VIAL IV SCH (20:54)
[2021-08-24] MEDS: ACCU-CHEK COMFORT CURVE STRIP VI SCH (23:55)
[2021-08-24] MEDS: InsuLIN REG 1unit/0.01ml Soln (100units/ml) SC SCH (23:55)
[2021-08-25] VITALS (87 sets, daily range): BP systolic 79–143; BP diastolic 41–98
[2021-08-25] MEDS ORDERED: DEXTROSE (50%) 50ML SYRG IV SCH
[2021-08-25] MEDS: AMPICILLIN & SULBACTAM SODIUM 3 GM in SODIUM CHL 0.9% 100 ML IV SCH ×4 (00:34→20:21)
[2021-08-25] MEDS: NOREPINEPHRINE 8 MG/250ML KIT 250 ML IV SCH ×2 (01:21→16:53)
[2021-08-25 04:48] LABS: Basophils # (auto) 0.1 10 ^3/uL (0-0.2); Basophils % (auto) 0.9 % (0.0-2.0); Eosinophils # (auto) 0.2 10 ^3/uL (0-0.8); Eosinophils % (auto) 2.1 % (0.0-7.0); Hematocrit 31.4 % (41.0-53.0); Hemoglobin 10.2 g/dL (13.5-17.5); Lymphocytes % (auto) 8.7 % (10.0-50.0); Mean Corpuscular Hemoglobin 30.2 pg (28.0-32.0); Mean Corpuscular Hgb Conc. 32.5 g/dL (32.0-36.0); Monocytes # (auto) 0.6 10 ^3/uL (0-1.3); Monocytes % (auto) 5.3 % (0.0-12.0); Neutrophils # (auto) 9.8 10 ^3/uL (1.6-8.6); Red Blood Cells 3.38 10^6/uL (4.5-5.90); White Blood Cell 11.9 10^3/uL (4.4-10.8)
[2021-08-25 05:04] LABS: Potassium 3.6 mmol/L (3.5-5.1)
[2021-08-25 05:09] LABS: Albumin 1.9 g/dL (3.4-5.0); BUN/Creatinine Ratio 9.3; Calcium 8.5 mg/dL (8.5-10.1); Magnesium 1.9 mg/dL (1.6-2.6)
[2021-08-25 05:17] LABS: Bilirubin, Total 0.6 mg/dL (0.2-1.0); Phosphorus 2.2 mg/dL (2.5-4.90)
[2021-08-25] MEDS: GLYCOPYRROLATE 0.2 MG/ML 1ML VIAL IV SCH ×3 (05:51→20:36)
[2021-08-25] MEDS: NYSTATIN (MOUTH-THROAT) 500,000 UNITS/5 ML SUSP MT SCH ×4 (05:51→20:36)
[2021-08-25] MEDS: ACCU-CHEK COMFORT CURVE STRIP VI SCH ×4 (05:51→23:50)
[2021-08-25] MEDS: InsuLIN REG 1unit/0.01ml Soln (100units/ml) SC SCH ×4 (05:51→23:50)
[2021-08-25] MEDS: VASOPRESSIN 50 UNITS in D5W 5% 247.5 ML IV SCH (05:52)
[2021-08-25] MEDS: ALBUTEROL SULF 2.5 MG/0.5ML(0.5%) NEB SOLN NEB SCH ×4 (06:00→19:42)
[2021-08-25] MEDS: ACETYLCYSTEINE 20%(200MG/ML) SOL 4ML NEB SCH ×3 (06:11→19:42)
[2021-08-25] MEDS: SODIUM CHLORIDE 0.9% 1,000 ML IV SCH (08:15)
[2021-08-25] MEDS: PROPOFOL 100 ML IV SCH ×2 (08:33→13:00)
[2021-08-25] MEDS: PANTOPRAZOLE 40 MG/10 ML VIAL INJ IV SCH (10:13)
[2021-08-25] MEDS: CHOLECALCIFEROL (VITD3) 2,000 UNIT CAP/TAB PO SCH (10:13)
[2021-08-25] MEDS: SODIUM CHLOR 0.9% PF (SALINE LOCK) 10ML VIAL/SYR IV SCH ×2 (10:13→19:57)
[2021-08-25] MEDS: ENOXAPARIN SOD 120 MG/0.8 ML SYRINGE SC SCH ×2 (10:13→20:37)
[2021-08-25] MEDS: FLUCONAZOLE 200MG/100ML 100 ML IV SCH ×2 (10:14→11:00)
[2021-08-25] MEDS: MIDAZOLAM DRIP 50 mg/50mL 50 ML IV SCH ×3 (10:14→17:36)
[2021-08-25] MEDS ORDERED: IOHEXOL 350 MG/ML 100ML IJ ONE (10:45)
[2021-08-25] MEDS ORDERED: POTASSIUM PHOSP 26.4MEQ(18MMOL) IN NS 100 ML IV ONE (13:00)
[2021-08-25] MEDS ORDERED: metroNIDAZOLE 500MG/100ML 100 ML IV SCH (14:00)
[2021-08-25] MEDS: fentaNYL Drip 2500mCg/250mlNS 250 ML IV SCH (15:45)
[2021-08-25] MEDS ORDERED: TPN PER PHARMACY IV NR ×6 (20:00)
[2021-08-25] MEDS ORDERED: dilTIAZem 25 MG/5 ML VIAL IV ONE (22:45)
[2021-08-26] VITALS (99 sets, daily range): BP systolic 82–154; BP diastolic 40–89
[2021-08-26] MEDS: AMPICILLIN & SULBACTAM SODIUM 3 GM in SODIUM CHL 0.9% 100 ML IV SCH ×4 (04:20→19:15)
[2021-08-26 04:50] LABS: Basophils # (auto) 0.1 10 ^3/uL (0-0.2); Eosinophils # (auto) 0.1 10 ^3/uL (0-0.8); Lymphocytes # (auto) 1.3 10 ^3/uL (0.4-5.4)
[2021-08-26 04:52] LABS: Basophils % (auto) 0.9 % (0.0-2.0); Eosinophils % (auto) 0.9 % (0.0-7.0); Hematocrit 30.2 % (41.0-53.0); Hemoglobin 9.9 g/dL (13.5-17.5); Mean Corpuscular Hemoglobin 30.2 pg (28.0-32.0); Mean Corpuscular Hgb Conc. 32.7 g/dL (32.0-36.0); Mean Corpuscular Volume 92.4 fL (80.0-100.0); Monocytes % (auto) 6.1 % (0.0-12.0); Neutrophils # (auto) 13.8 10 ^3/uL (1.6-8.6); Neutrophils % (auto) 84.1 % (37.0-80.0); Red Blood Cells 3.27 10^6/uL (4.5-5.90); White Blood Cell 16.5 10^3/uL (4.4-10.8)
[2021-08-26 05:01] LABS: Alanine Aminotransferase 37 U/L (16-61); Albumin 1.6 g/dL (3.4-5.0); Anion Gap 5 (5-15); Aspartate Aminotransferase 41 U/L (15-37); BUN/Creatinine Ratio 7.8; Blood Urea Nitrogen 4 mg/dL (7-18); Calcium 8.3 mg/dL (8.5-10.1); Carbon Dioxide 30 mmol/L (21-32); Chloride 104 mmol/L (98-107); GFR African American 230 mL/min; GFR Non-African American 190 mL/min; Glucose 171 mg/dL (74-106); Magnesium 2.1 mg/dL (1.6-2.6); Potassium 3.7 mmol/L (3.5-5.1); Sodium 139 mmol/L (136-145)
[2021-08-26 05:04] LABS: Alkaline Phosphatase 109 U/L (45-117); Bilirubin, Total 0.6 mg/dL (0.2-1.0); Phosphorus 2.9 mg/dL (2.5-4.90)
[2021-08-26] MEDS: NYSTATIN (MOUTH-THROAT) 500,000 UNITS/5 ML SUSP MT SCH ×3 (06:00→18:15)
[2021-08-26] MEDS: GLYCOPYRROLATE 0.2 MG/ML 1ML VIAL IV SCH ×3 (06:00→22:00)
[2021-08-26] MEDS: InsuLIN REG 1unit/0.01ml Soln (100units/ml) SC SCH ×3 (06:00→18:15)
[2021-08-26] MEDS: ACCU-CHEK COMFORT CURVE STRIP VI SCH ×3 (06:02→18:15)
[2021-08-26] MEDS: VASOPRESSIN 50 UNITS in D5W 5% 247.5 ML IV SCH (07:45)
[2021-08-26] MEDS: ALBUTEROL SULF 2.5 MG/0.5ML(0.5%) NEB SOLN NEB SCH ×3 (08:33→22:12)
[2021-08-26] MEDS: ACETYLCYSTEINE 20%(200MG/ML) SOL 4ML NEB SCH ×3 (08:35→22:13)
[2021-08-26] MEDS: PROPOFOL 100 ML IV SCH ×2 (09:03→18:00)
[2021-08-26] MEDS: MIDAZOLAM DRIP 50 mg/50mL 50 ML IV SCH ×4 (09:52→20:32)
[2021-08-26] MEDS: CHOLECALCIFEROL (VITD3) 2,000 UNIT CAP/TAB PO SCH (09:52)
[2021-08-26] MEDS: SODIUM CHLOR 0.9% PF (SALINE LOCK) 10ML VIAL/SYR IV SCH (09:52)
[2021-08-26] MEDS: FLUCONAZOLE 200MG/100ML 100 ML IV SCH (09:52)
[2021-08-26] MEDS: ENOXAPARIN SOD 120 MG/0.8 ML SYRINGE SC SCH (09:52)
[2021-08-26] MEDS: PANTOPRAZOLE 40 MG/10 ML VIAL INJ IV SCH (10:00)
[2021-08-26 10:11] LABS: Pre Albumin 12.8 mg/dL (20.0-40.0)
[2021-08-26] MEDS: fentaNYL Drip 2500mCg/250mlNS 250 ML IV SCH ×2 (15:45→20:35)
[2021-08-26] MEDS ORDERED: TPN PER PHARMACY IV NR ×6 (20:00)
[2021-08-26] MEDS: NOREPINEPHRINE 8 MG/250ML KIT 250 ML IV SCH (20:33)
[2021-08-27] VITALS (100 sets, daily range): BP systolic 87–133; BP diastolic 48–92
[2021-08-27] MEDS: SODIUM CHLOR 0.9% PF (SALINE LOCK) 10ML VIAL/SYR IV SCH ×3 (00:54→22:13)
[2021-08-27] MEDS: NYSTATIN (MOUTH-THROAT) 500,000 UNITS/5 ML SUSP MT SCH ×5 (00:54→22:13)
[2021-08-27] MEDS: ENOXAPARIN SOD 120 MG/0.8 ML SYRINGE SC SCH ×2 (00:54→10:01)
[2021-08-27] MEDS: PROPOFOL 100 ML IV SCH ×6 (01:36→22:15)
[2021-08-27] MEDS: MIDAZOLAM DRIP 50 mg/50mL 50 ML IV SCH ×6 (01:37→20:57)
[2021-08-27] MEDS: AMPICILLIN & SULBACTAM SODIUM 3 GM in SODIUM CHL 0.9% 100 ML IV SCH ×4 (01:54→19:15)
[2021-08-27] MEDS: GLYCOPYRROLATE 0.2 MG/ML 1ML VIAL IV SCH (05:53)
[2021-08-27 05:57] LABS: Hemoglobin 9.5 g/dL (13.5-17.5)
[2021-08-27] MEDS: ACCU-CHEK COMFORT CURVE STRIP VI SCH ×5 (06:00→23:06)
[2021-08-27 06:28] LABS: Mean Corpuscular Hemoglobin 34.1 pg (28.0-32.0); Mean Corpuscular Hgb Conc. 36.7 g/dL (32.0-36.0); Mean Corpuscular Volume 92.9 fL (80.0-100.0); Red Cell Distribution Width 14.3 % (11.8-14.3); White Blood Cell 10.2 10^3/uL (4.4-10.8)
[2021-08-27 06:30] LABS: Basophils % (manual) 0 (0.0-2.0); Blast Cells 0; Myelocytes % 0; Promyelocytes % 0; Reactive Lymphocytes 0
[2021-08-27] MEDS: InsuLIN REG 1unit/0.01ml Soln (100units/ml) SC SCH ×5 (06:31→23:06)
[2021-08-27 06:32] LABS: Albumin 1.5 g/dL (3.4-5.0); Anion Gap 2 (5-15); Calcium 6.7 mg/dL (8.5-10.1); Carbon Dioxide 32 mmol/L (21-32); Chloride 102 mmol/L (98-107); Glucose 202 mg/dL (74-106); Potassium 3.4 mmol/L (3.5-5.1); Sodium 136 mmol/L (136-145)
[2021-08-27 06:37] LABS: Alkaline Phosphatase 96 U/L (45-117); Bilirubin, Total 0.8 mg/dL (0.2-1.0); GFR African American 394 mL/min; GFR Non-African American 326 mL/min; Phosphorus 2.8 mg/dL (2.5-4.90)
[2021-08-27 07:02] LABS: BUN/Creatinine Ratio 12.5; Blood Urea Nitrogen < 4 mg/dL (7-18)
[2021-08-27 07:03] LABS: Aspartate Aminotransferase 38 U/L (15-37); Total Protein 5.3 g/dL (6.4-8.2)
[2021-08-27] MEDS: VASOPRESSIN 50 UNITS in D5W 5% 247.5 ML IV SCH (07:45)
[2021-08-27 07:51] LABS: Alanine Aminotransferase 35 U/L (16-61)
[2021-08-27] MEDS: fentaNYL Drip 2500mCg/250mlNS 250 ML IV SCH ×3 (08:18→23:29)
[2021-08-27 08:52] LABS: Band Neutrophils % (manual) 7; Eosinophils % (manual) 2 (0-7); Lymphocytes % (manual) 10 (10.0-50.0); Metamyelocytes % 1; Monocytes % (manual) 2 (0-12)
[2021-08-27] MEDS: CHOLECALCIFEROL (VITD3) 2,000 UNIT CAP/TAB PO SCH (10:01)
[2021-08-27] MEDS ORDERED: CALCIUM GLUC 1,000mg/50ml-NS 50 ML IV ONE (10:30)
[2021-08-27] MEDS: POTASSIUM CHL 10MEQ/50ML 50 ML IV SCH ×2 (11:00→12:00)
[2021-08-27] MEDS: ACETAMINOPHEN 500 MG TAB PO PRN ×2 (12:04→23:07)
[2021-08-27] MEDS ORDERED: TPN PER PHARMACY IV NR ×7 (20:00)
[2021-08-27] MEDS ORDERED: ENOXAPARIN SOD 60 MG/0.6 ML SYRINGE SC SCH (22:00)
[2021-08-27] MEDS: ROCURONIUM 10MG/ML 10ML VIAL IV PRN (22:45)
[2021-08-28] VITALS (93 sets, daily range): BP systolic 93–150; BP diastolic 50–98
[2021-08-28] MEDS: MIDAZOLAM DRIP 50 mg/50mL 50 ML IV SCH ×3 (00:37→22:47)
[2021-08-28] MEDS: AMPICILLIN & SULBACTAM SODIUM 3 GM in SODIUM CHL 0.9% 100 ML IV SCH ×2 (01:15→06:49)
[2021-08-28 03:39] LABS: Basophils # (auto) 0.1 10 ^3/uL (0-0.2); Basophils % (auto) 0.5 % (0.0-2.0); Eosinophils # (auto) 0.3 10 ^3/uL (0-0.8); Eosinophils % (auto) 2.3 % (0.0-7.0); Hematocrit 32.3 % (41.0-53.0); Hemoglobin 10.2 g/dL (13.5-17.5); Lymphocytes # (auto) 1.8 10 ^3/uL (0.4-5.4); Lymphocytes % (auto) 13.1 % (10.0-50.0); Mean Corpuscular Hemoglobin 29.4 pg (28.0-32.0); Mean Corpuscular Hgb Conc. 31.5 g/dL (32.0-36.0); Mean Corpuscular Volume 93.2 fL (80.0-100.0); Monocytes # (auto) 1.1 10 ^3/uL (0-1.3); Monocytes % (auto) 7.8 % (0.0-12.0); Neutrophils # (auto) 10.4 10 ^3/uL (1.6-8.6); Neutrophils % (auto) 76.3 % (37.0-80.0); Red Blood Cells 3.47 10^6/uL (4.5-5.90); Red Cell Distribution Width 14.2 % (11.8-14.3); White Blood Cell 13.7 10^3/uL (4.4-10.8)
[2021-08-28 03:57] LABS: Albumin 1.9 g/dL (3.4-5.0); BUN/Creatinine Ratio 13.5; Calcium 8.7 mg/dL (8.5-10.1); Magnesium 2.2 mg/dL (1.6-2.6); Potassium 3.7 mmol/L (3.5-5.1)
[2021-08-28 04:00] LABS: Bilirubin, Total 0.8 mg/dL (0.2-1.0); Phosphorus 3.1 mg/dL (2.5-4.90); Total Protein 6.6 g/dL (6.4-8.2)
[2021-08-28] MEDS: ACETAMINOPHEN 500 MG TAB PO PRN ×2 (04:33→12:23)
[2021-08-28] MEDS: NOREPINEPHRINE 8 MG/250ML KIT 250 ML IV SCH (04:39)
[2021-08-28] MEDS: ROCURONIUM 10MG/ML 10ML VIAL IV PRN ×2 (05:23→12:24)
[2021-08-28] MEDS: InsuLIN REG 1unit/0.01ml Soln (100units/ml) SC SCH ×3 (05:43→18:00)
[2021-08-28] MEDS: ACCU-CHEK COMFORT CURVE STRIP VI SCH ×3 (05:43→18:00)
[2021-08-28] MEDS: NYSTATIN (MOUTH-THROAT) 500,000 UNITS/5 ML SUSP MT SCH (05:43)
[2021-08-28] MEDS: fentaNYL Drip 2500mCg/250mlNS 250 ML IV SCH ×3 (06:52→22:44)
[2021-08-28] MEDS: VASOPRESSIN 50 UNITS in D5W 5% 247.5 ML IV SCH (07:45)
[2021-08-28] MEDS ORDERED: PIPERACILLIN-TAZOB 3.375GM 100 ML IV ONE (10:00)
[2021-08-28] MEDS: SODIUM CHLOR 0.9% PF (SALINE LOCK) 10ML VIAL/SYR IV SCH ×2 (10:00→21:43)
[2021-08-28] MEDS: PANTOPRAZOLE 40 MG/10 ML VIAL INJ IV SCH (11:16)
[2021-08-28] MEDS: CHOLECALCIFEROL (VITD3) 2,000 UNIT CAP/TAB PO SCH (11:17)
[2021-08-28] MEDS: PROPOFOL 100 ML IV SCH ×2 (15:17→22:40)
[2021-08-28] MEDS: PIPERACILLIN-TAZOB 3.375GM 100 ML IV SCH (18:00)
[2021-08-28] MEDS: TPN PER PHARMACY IV NR ×7 (21:42)
[2021-08-29] VITALS (105 sets, daily range): BP systolic 85–162; BP diastolic 37–100
[2021-08-29] MEDS: ACCU-CHEK COMFORT CURVE STRIP VI SCH ×4 (00:14→18:07)
[2021-08-29] MEDS: NOREPINEPHRINE 8 MG/250ML KIT 250 ML IV SCH (02:00)
[2021-08-29] MEDS: PIPERACILLIN-TAZOB 3.375GM 100 ML IV SCH ×3 (02:34→17:37)
[2021-08-29] MEDS: PROPOFOL 100 ML IV SCH ×3 (02:56→23:00)
[2021-08-29] MEDS: MIDAZOLAM DRIP 50 mg/50mL 50 ML IV SCH ×2 (03:05→21:30)
[2021-08-29 04:54] LABS: Basophils # (auto) 0.1 10 ^3/uL (0-0.2); Basophils % (auto) 0.7 % (0.0-2.0); Eosinophils # (auto) 0.3 10 ^3/uL (0-0.8); Eosinophils % (auto) 2.4 % (0.0-7.0); Hematocrit 29.2 % (41.0-53.0); Hemoglobin 9.9 g/dL (13.5-17.5); Lymphocytes # (auto) 0.9 10 ^3/uL (0.4-5.4); Lymphocytes % (auto) 7.4 % (10.0-50.0); Mean Corpuscular Hgb Conc. 33.8 g/dL (32.0-36.0); Mean Corpuscular Volume 91.8 fL (80.0-100.0); Monocytes # (auto) 0.7 10 ^3/uL (0-1.3); Monocytes % (auto) 5.8 % (0.0-12.0); Neutrophils # (auto) 10.7 10 ^3/uL (1.6-8.6); Neutrophils % (auto) 83.7 % (37.0-80.0); Red Blood Cells 3.18 10^6/uL (4.5-5.90); Red Cell Distribution Width 13.7 % (11.8-14.3); White Blood Cell 12.7 10^3/uL (4.4-10.8)
[2021-08-29 05:01] LABS: Calcium 8.5 mg/dL (8.5-10.1); Potassium 3.6 mmol/L (3.5-5.1)
[2021-08-29 05:04] LABS: Albumin 1.7 g/dL (3.4-5.0); Magnesium 1.9 mg/dL (1.6-2.6)
[2021-08-29 05:07] LABS: Bilirubin, Total 1.4 mg/dL (0.2-1.0); Phosphorus 2.7 mg/dL (2.5-4.90); Total Protein 6.1 g/dL (6.4-8.2)
[2021-08-29] MEDS: InsuLIN REG 1unit/0.01ml Soln (100units/ml) SC SCH ×4 (06:00→18:00)
[2021-08-29] MEDS: fentaNYL Drip 2500mCg/250mlNS 250 ML IV SCH ×2 (06:23→15:30)
[2021-08-29] MEDS: VASOPRESSIN 50 UNITS in D5W 5% 247.5 ML IV SCH (07:45)
[2021-08-29] MEDS: SODIUM CHLOR 0.9% PF (SALINE LOCK) 10ML VIAL/SYR IV SCH ×2 (10:09→22:00)
[2021-08-29] MEDS: PANTOPRAZOLE 40 MG/10 ML VIAL INJ IV SCH (10:09)
[2021-08-29] MEDS: CHOLECALCIFEROL (VITD3) 2,000 UNIT CAP/TAB PO SCH (10:10)
[2021-08-29] MEDS: ROCURONIUM 10MG/ML 10ML VIAL IV PRN (15:29)
[2021-08-29] MEDS: TPN PER PHARMACY IV NR ×7 (19:55)
[2021-08-29] MEDS ORDERED: TPN PER PHARMACY IV NR ×7 (20:00)
[2021-08-29] MEDS: ACETAMINOPHEN 500 MG TAB PO PRN (21:30)
[2021-08-30] VITALS (95 sets, daily range): BP systolic 89–157; BP diastolic 44–102
[2021-08-30] MEDS: MIDAZOLAM DRIP 50 mg/50mL 50 ML IV SCH ×3 (00:30→23:09)
[2021-08-30] MEDS: NOREPINEPHRINE 8 MG/250ML KIT 250 ML IV SCH (02:00)
[2021-08-30] MEDS: PIPERACILLIN-TAZOB 3.375GM 100 ML IV SCH ×2 (02:00→09:47)
[2021-08-30] MEDS: PROPOFOL 100 ML IV SCH ×3 (02:26→23:08)
[2021-08-30] MEDS: ROCURONIUM 10MG/ML 10ML VIAL IV PRN ×2 (02:56→04:15)
[2021-08-30 04:39] LABS: Basophils # (auto) 0.1 10 ^3/uL (0-0.2); Basophils % (auto) 0.8 % (0.0-2.0); Eosinophils # (auto) 0.5 10 ^3/uL (0-0.8); Eosinophils % (auto) 4.7 % (0.0-7.0); Hematocrit 32.7 % (41.0-53.0); Lymphocytes # (auto) 1.1 10 ^3/uL (0.4-5.4); Lymphocytes % (auto) 9.9 % (10.0-50.0); Mean Corpuscular Hemoglobin 30.7 pg (28.0-32.0); Mean Corpuscular Hgb Conc. 33.6 g/dL (32.0-36.0); Mean Corpuscular Volume 91.5 fL (80.0-100.0); Monocytes # (auto) 0.8 10 ^3/uL (0-1.3); Monocytes % (auto) 7.2 % (0.0-12.0); Neutrophils # (auto) 8.5 10 ^3/uL (1.6-8.6); Neutrophils % (auto) 77.4 % (37.0-80.0); Red Blood Cells 3.57 10^6/uL (4.5-5.90); Red Cell Distribution Width 13.7 % (11.8-14.3)
[2021-08-30 04:53] LABS: Albumin 1.9 g/dL (3.4-5.0); Magnesium 1.9 mg/dL (1.6-2.6)
[2021-08-30 04:57] LABS: BUN/Creatinine Ratio 21.2; Bilirubin, Total 1.7 mg/dL (0.2-1.0); Phosphorus 3.6 mg/dL (2.5-4.90); Total Protein 6.7 g/dL (6.4-8.2)
[2021-08-30] MEDS: InsuLIN REG 1unit/0.01ml Soln (100units/ml) SC SCH ×5 (06:00→23:44)
[2021-08-30] MEDS: ACCU-CHEK COMFORT CURVE STRIP VI SCH ×5 (06:00→23:43)
[2021-08-30] MEDS: ACETAMINOPHEN 500 MG TAB PO PRN ×3 (06:24→23:56)
[2021-08-30] MEDS: VASOPRESSIN 50 UNITS in D5W 5% 247.5 ML IV SCH (07:45)
[2021-08-30] MEDS: CHOLECALCIFEROL (VITD3) 2,000 UNIT CAP/TAB PO SCH (09:47)
[2021-08-30] MEDS: SODIUM CHLOR 0.9% PF (SALINE LOCK) 10ML VIAL/SYR IV SCH ×2 (09:47→21:34)
[2021-08-30] MEDS: PANTOPRAZOLE 40 MG/10 ML VIAL INJ IV SCH (09:47)
[2021-08-30] MEDS: fentaNYL Drip 2500mCg/250mlNS 250 ML IV SCH ×3 (14:42→23:11)
[2021-08-30] MEDS ORDERED: MEROPENEM 1GM IVPB 100 ML IV ONE (16:30)
[2021-08-30] MEDS ORDERED: TPN PER PHARMACY IV NR ×5 (20:00)
[2021-08-30] MEDS: TOBRAMYCIN 300 MG/5 ML NEB SOLN NEB SCH (22:00)
[2021-08-30] MEDS: MEROPENEM 1GM IVPB 100 ML IV SCH (23:44)
[2021-08-31] VITALS (93 sets, daily range): BP systolic 89–149; BP diastolic 52–96
[2021-08-31] MEDS: PROPOFOL 100 ML IV SCH ×6 (00:25→20:51)
[2021-08-31 04:29] LABS: Basophils # (auto) 0.1 10 ^3/uL (0-0.2); Basophils % (auto) 0.9 % (0.0-2.0); Eosinophils # (auto) 0.2 10 ^3/uL (0-0.8); Eosinophils % (auto) 1.2 % (0.0-7.0); Hematocrit 33.7 % (41.0-53.0); Lymphocytes # (auto) 1.3 10 ^3/uL (0.4-5.4); Lymphocytes % (auto) 7.9 % (10.0-50.0); Mean Corpuscular Hemoglobin 29.9 pg (28.0-32.0); Mean Corpuscular Hgb Conc. 32.6 g/dL (32.0-36.0); Mean Corpuscular Volume 91.7 fL (80.0-100.0); Monocytes # (auto) 1.3 10 ^3/uL (0-1.3); Monocytes % (auto) 8.1 % (0.0-12.0); Neutrophils # (auto) 13.2 10 ^3/uL (1.6-8.6); Neutrophils % (auto) 81.9 % (37.0-80.0); Red Blood Cells 3.67 10^6/uL (4.5-5.90); Red Cell Distribution Width 13.7 % (11.8-14.3); White Blood Cell 16.2 10^3/uL (4.4-10.8)
[2021-08-31 04:50] LABS: Albumin 1.9 g/dL (3.4-5.0); Calcium 8.9 mg/dL (8.5-10.1); Magnesium 2.3 mg/dL (1.6-2.6); Potassium 4.3 mmol/L (3.5-5.1)
[2021-08-31 04:52] LABS: BUN/Creatinine Ratio 26.2
[2021-08-31] MEDS: MIDAZOLAM DRIP 50 mg/50mL 50 ML IV SCH ×5 (04:53→20:06)
[2021-08-31 04:55] LABS: Bilirubin, Total 1.4 mg/dL (0.2-1.0); Phosphorus 3.1 mg/dL (2.5-4.90); Total Protein 6.7 g/dL (6.4-8.2)
[2021-08-31] MEDS: ACCU-CHEK COMFORT CURVE STRIP VI SCH ×3 (06:00→18:00)
[2021-08-31] MEDS: InsuLIN REG 1unit/0.01ml Soln (100units/ml) SC SCH ×3 (06:00→18:00)
[2021-08-31] MEDS: TOBRAMYCIN 300 MG/5 ML NEB SOLN NEB SCH ×2 (06:33→22:14)
[2021-08-31] MEDS: VASOPRESSIN 50 UNITS in D5W 5% 247.5 ML IV SCH (07:45)
[2021-08-31] MEDS: fentaNYL Drip 2500mCg/250mlNS 250 ML IV SCH ×3 (07:47→23:16)
[2021-08-31] MEDS: MEROPENEM 1GM IVPB 100 ML IV SCH (08:08)
[2021-08-31] MEDS: PANTOPRAZOLE 40 MG/10 ML VIAL INJ IV SCH (09:53)
[2021-08-31] MEDS: SODIUM CHLOR 0.9% PF (SALINE LOCK) 10ML VIAL/SYR IV SCH ×2 (09:53→22:23)
[2021-08-31] MEDS: CHOLECALCIFEROL (VITD3) 2,000 UNIT CAP/TAB PO SCH (09:53)
[2021-08-31] MEDS: ROCURONIUM 10MG/ML 10ML VIAL IV PRN ×3 (09:54→18:38)
[2021-08-31] MEDS: ACETAMINOPHEN 500 MG TAB PO PRN ×2 (09:54→18:38)
[2021-08-31] MEDS ORDERED: ENOXAPARIN SOD 40 MG/0.4 ML SYRINGE SC ONE (14:00)
[2021-08-31] MEDS: PIPERACILLIN-TAZOB 3.375GM 100 ML IV SCH ×2 (14:40→22:23)
[2021-08-31] MEDS ORDERED: FUROSEMIDE 40 MG/4 ML VIAL IV ONE (17:30)
[2021-08-31] MEDS: LACTULOSE 20Gm/30ML SOLN PO SCH (18:35)
[2021-08-31] MEDS ORDERED: TPN PER PHARMACY IV NR ×6 (20:00)
[2021-08-31] MEDS: GLYCOPYRROLATE 0.2 MG/ML 1ML VIAL IV SCH (22:23)
[2021-09-01] VITALS (92 sets, daily range): BP systolic 86–135; BP diastolic 52–79
[2021-09-01] MEDS: LACTULOSE 20Gm/30ML SOLN PO SCH ×4 (00:17→18:11)
[2021-09-01] MEDS: ACCU-CHEK COMFORT CURVE STRIP VI SCH ×4 (00:17→18:12)
[2021-09-01] MEDS: PROPOFOL 100 ML IV SCH ×9 (00:19→23:00)
[2021-09-01] MEDS: MIDAZOLAM DRIP 50 mg/50mL 50 ML IV SCH ×4 (00:19→21:58)
[2021-09-01] MEDS: NOREPINEPHRINE 8 MG/250ML KIT 250 ML IV SCH ×3 (00:20→21:57)
[2021-09-01] MEDS: ACETYLCYSTEINE 20%(200MG/ML) SOL 4ML NEB SCH ×3 (01:20→18:28)
[2021-09-01] MEDS: LEVALBUTEROL HCL 1.25 MG/3 ML NEB NEB SCH ×3 (01:20→18:28)
[2021-09-01 04:04] LABS: Basophils # (auto) 0.1 10 ^3/uL (0-0.2); Basophils % (auto) 0.8 % (0.0-2.0); Eosinophils # (auto) 0.4 10 ^3/uL (0-0.8); Eosinophils % (auto) 2.8 % (0.0-7.0); Hematocrit 33.8 % (41.0-53.0); Hemoglobin 11.4 g/dL (13.5-17.5); Lymphocytes # (auto) 1.3 10 ^3/uL (0.4-5.4); Mean Corpuscular Hemoglobin 30.7 pg (28.0-32.0); Mean Corpuscular Hgb Conc. 33.6 g/dL (32.0-36.0); Mean Corpuscular Volume 91.4 fL (80.0-100.0); Monocytes # (auto) 1.5 10 ^3/uL (0-1.3); Monocytes % (auto) 10.3 % (0.0-12.0); Neutrophils # (auto) 11.5 10 ^3/uL (1.6-8.6); Neutrophils % (auto) 77.1 % (37.0-80.0); Red Cell Distribution Width 13.7 % (11.8-14.3); White Blood Cell 14.9 10^3/uL (4.4-10.8)
[2021-09-01 04:21] LABS: Calcium 9.2 mg/dL (8.5-10.1); Magnesium 2.4 mg/dL (1.6-2.6); Potassium 4.2 mmol/L (3.5-5.1)
[2021-09-01 04:27] LABS: BUN/Creatinine Ratio 28.9; Bilirubin, Total 1.4 mg/dL (0.2-1.0); Phosphorus 3.3 mg/dL (2.5-4.90)
[2021-09-01] MEDS: InsuLIN REG 1unit/0.01ml Soln (100units/ml) SC SCH ×4 (05:37→18:15)
[2021-09-01] MEDS: GLYCOPYRROLATE 0.2 MG/ML 1ML VIAL IV SCH ×3 (05:38→21:28)
[2021-09-01] MEDS: PIPERACILLIN-TAZOB 3.375GM 100 ML IV SCH ×3 (05:38→21:28)
[2021-09-01] MEDS: TOBRAMYCIN 300 MG/5 ML NEB SOLN NEB SCH ×2 (06:10→22:06)
[2021-09-01] MEDS: fentaNYL Drip 2500mCg/250mlNS 250 ML IV SCH ×3 (07:29→21:59)
[2021-09-01] MEDS: VASOPRESSIN 50 UNITS in D5W 5% 247.5 ML IV SCH (07:45)
[2021-09-01] MEDS: PANTOPRAZOLE 40 MG/10 ML VIAL INJ IV SCH (09:34)
[2021-09-01] MEDS: ENOXAPARIN SOD 40 MG/0.4 ML SYRINGE SC SCH (09:34)
[2021-09-01] MEDS: SODIUM CHLOR 0.9% PF (SALINE LOCK) 10ML VIAL/SYR IV SCH ×2 (09:35→21:28)
[2021-09-01] MEDS: CHOLECALCIFEROL (VITD3) 2,000 UNIT CAP/TAB PO SCH (09:35)
[2021-09-01] MEDS: ROCURONIUM 10MG/ML 10ML VIAL IV PRN (10:15)
[2021-09-01] MEDS: ACETAMINOPHEN 500 MG TAB PO PRN (10:45)
[2021-09-01] MEDS ORDERED: ACETAMINOPHEN IV 1000 MG/100ML (10MG/ML) IV ONE (13:30)
[2021-09-01] MEDS ORDERED: SENNA 8.6 MG TAB PO PRN (14:00)
[2021-09-01 18:27] LABS: INR 1.08 (0.9-1.15); Partial Thromboplastin Time 27.7 sec (23.6-33.0)
[2021-09-01] MEDS ORDERED: TPN PER PHARMACY IV NR ×6 (20:00)
[2021-09-02] VITALS (91 sets, daily range): BP systolic 88–138; BP diastolic 53–85
[2021-09-02] MEDS: MIDAZOLAM DRIP 50 mg/50mL 50 ML IV SCH ×7 (01:00→23:05)
[2021-09-02] MEDS: PROPOFOL 100 ML IV SCH ×6 (04:00→23:05)
[2021-09-02 05:19] LABS: Basophils # (auto) 0.1 10 ^3/uL (0-0.2); Basophils % (auto) 1.1 % (0.0-2.0); Eosinophils # (auto) 0.4 10 ^3/uL (0-0.8); Eosinophils % (auto) 3.8 % (0.0-7.0); Hematocrit 30.1 % (41.0-53.0); Lymphocytes # (auto) 1.2 10 ^3/uL (0.4-5.4); Lymphocytes % (auto) 11.2 % (10.0-50.0); Mean Corpuscular Hemoglobin 30.7 pg (28.0-32.0); Mean Corpuscular Hgb Conc. 33.3 g/dL (32.0-36.0); Monocytes # (auto) 1.2 10 ^3/uL (0-1.3); Monocytes % (auto) 10.6 % (0.0-12.0); Neutrophils # (auto) 8.1 10 ^3/uL (1.6-8.6); Neutrophils % (auto) 73.3 % (37.0-80.0); Nucleated Red Blood Cells % 0.1 %; Red Blood Cells 3.27 10^6/uL (4.5-5.90); Red Cell Distribution Width 13.7 % (11.8-14.3)
[2021-09-02 05:38] LABS: Albumin 1.9 g/dL (3.4-5.0); Calcium 8.9 mg/dL (8.5-10.1); Magnesium 2.1 mg/dL (1.6-2.6); Potassium 3.9 mmol/L (3.5-5.1)
[2021-09-02 05:44] LABS: BUN/Creatinine Ratio 26.5; Bilirubin, Total 1.3 mg/dL (0.2-1.0); Phosphorus 3.8 mg/dL (2.5-4.90); Pre Albumin 24.7 mg/dL (20.0-40.0); Total Protein 6.4 g/dL (6.4-8.2)
[2021-09-02] MEDS: PIPERACILLIN-TAZOB 3.375GM 100 ML IV SCH ×3 (06:00→22:00)
[2021-09-02] MEDS: InsuLIN REG 1unit/0.01ml Soln (100units/ml) SC SCH ×4 (06:00→17:29)
[2021-09-02] MEDS: LACTULOSE 20Gm/30ML SOLN PO SCH ×4 (06:00→17:29)
[2021-09-02] MEDS: GLYCOPYRROLATE 0.2 MG/ML 1ML VIAL IV SCH (06:00)
[2021-09-02] MEDS: ACCU-CHEK COMFORT CURVE STRIP VI SCH ×4 (06:00→17:29)
[2021-09-02] MEDS: ACETAMINOPHEN 500 MG TAB PO PRN (06:51)
[2021-09-02] MEDS: VASOPRESSIN 50 UNITS in D5W 5% 247.5 ML IV SCH (07:45)
[2021-09-02] MEDS: fentaNYL Drip 2500mCg/250mlNS 250 ML IV SCH ×2 (07:57→18:00)
[2021-09-02] MEDS: NOREPINEPHRINE 8 MG/250ML KIT 250 ML IV SCH ×2 (07:57→17:00)
[2021-09-02] MEDS: CHOLECALCIFEROL (VITD3) 2,000 UNIT CAP/TAB PO SCH (09:11)
[2021-09-02] MEDS: SODIUM CHLOR 0.9% PF (SALINE LOCK) 10ML VIAL/SYR IV SCH ×2 (09:11→22:00)
[2021-09-02] MEDS: PANTOPRAZOLE 40 MG/10 ML VIAL INJ IV SCH (09:11)
[2021-09-02] MEDS: ENOXAPARIN SOD 40 MG/0.4 ML SYRINGE SC SCH (09:11)
[2021-09-02] MEDS ORDERED: fentaNYL CITRATE 100 MCG/2 ML VL ONE ×3 (12:35→14:40)
[2021-09-02] MEDS ORDERED: HYDROmorphone HCL 2 MG/ML VL ONE (12:35)
[2021-09-02] MEDS ORDERED: MIDAZOLAM HCL 2MG/2ML 2ml VIAL (1mg/ml) ONE ×2 (12:36→15:16)
[2021-09-02] MEDS ORDERED: ROCURONIUM 10MG/ML 10ML VIAL IV ONE (13:15)
[2021-09-02] MEDS ORDERED: BUPIVACAINE W/ EPINEPH 0.25% INJ 50ML MDV ONE (14:08)
[2021-09-02] MEDS: LEVALBUTEROL HCL 1.25 MG/3 ML NEB NEB SCH ×3 (16:35→19:02)
[2021-09-02] MEDS: ACETYLCYSTEINE 20%(200MG/ML) SOL 4ML NEB SCH ×3 (16:35→19:01)
[2021-09-02] MEDS: TOBRAMYCIN 300 MG/5 ML NEB SOLN NEB SCH ×2 (16:35→19:01)
[2021-09-02] MEDS ORDERED: TPN PER PHARMACY IV NR ×6 (20:00)
[2021-09-03] VITALS (96 sets, daily range): BP systolic 96–139; BP diastolic 55–110
[2021-09-03] MEDS: MIDAZOLAM DRIP 50 mg/50mL 50 ML IV SCH ×5 (01:49→21:09)
[2021-09-03] MEDS: PROPOFOL 100 ML IV SCH ×6 (01:49→21:09)
[2021-09-03 04:04] LABS: Basophils # (auto) 0.1 10 ^3/uL (0-0.2); Basophils % (auto) 0.6 % (0.0-2.0); Eosinophils # (auto) 0 10 ^3/uL (0-0.8); Hematocrit 28.7 % (41.0-53.0); Hemoglobin 9.8 g/dL (13.5-17.5); Lymphocytes # (auto) 0.8 10 ^3/uL (0.4-5.4); Lymphocytes % (auto) 5.4 % (10.0-50.0); Mean Corpuscular Hemoglobin 31.3 pg (28.0-32.0); Mean Corpuscular Hgb Conc. 34.3 g/dL (32.0-36.0); Mean Corpuscular Volume 91.4 fL (80.0-100.0); Monocytes # (auto) 1.3 10 ^3/uL (0-1.3); Monocytes % (auto) 8.5 % (0.0-12.0); Neutrophils % (auto) 85.5 % (37.0-80.0); Nucleated Red Blood Cells % 0.1 %; Red Blood Cells 3.14 10^6/uL (4.5-5.90); Red Cell Distribution Width 13.8 % (11.8-14.3); White Blood Cell 15.2 10^3/uL (4.4-10.8)
[2021-09-03 04:23] LABS: Albumin 1.9 g/dL (3.4-5.0); Calcium 8.6 mg/dL (8.5-10.1); Magnesium 2.2 mg/dL (1.6-2.6); Potassium 4.1 mmol/L (3.5-5.1)
[2021-09-03 04:26] LABS: Bilirubin, Total 1.4 mg/dL (0.2-1.0); Total Protein 6.4 g/dL (6.4-8.2)
[2021-09-03] MEDS: NOREPINEPHRINE 8 MG/250ML KIT 250 ML IV SCH ×2 (05:00→14:04)
[2021-09-03] MEDS: PIPERACILLIN-TAZOB 3.375GM 100 ML IV SCH ×3 (05:58→21:04)
[2021-09-03] MEDS: LACTULOSE 20Gm/30ML SOLN PO SCH ×5 (05:58→23:35)
[2021-09-03] MEDS: ACCU-CHEK COMFORT CURVE STRIP VI SCH ×5 (05:58→23:35)
[2021-09-03] MEDS: InsuLIN REG 1unit/0.01ml Soln (100units/ml) SC SCH ×5 (06:00→23:35)
[2021-09-03] MEDS: ACETAMINOPHEN 500 MG TAB PO PRN ×2 (06:57→21:05)
[2021-09-03] MEDS: ACETYLCYSTEINE 20%(200MG/ML) SOL 4ML NEB SCH ×3 (07:05→19:13)
[2021-09-03] MEDS: VASOPRESSIN 50 UNITS in D5W 5% 247.5 ML IV SCH (07:45)
[2021-09-03] MEDS: fentaNYL Drip 2500mCg/250mlNS 250 ML IV SCH ×2 (08:40→18:00)
[2021-09-03] MEDS: LEVALBUTEROL HCL 1.25 MG/3 ML NEB NEB SCH ×3 (08:59→19:13)
[2021-09-03] MEDS: PANTOPRAZOLE 40 MG/10 ML VIAL INJ IV SCH (09:27)
[2021-09-03] MEDS: CHOLECALCIFEROL (VITD3) 2,000 UNIT CAP/TAB PO SCH (09:27)
[2021-09-03] MEDS: SODIUM CHLOR 0.9% PF (SALINE LOCK) 10ML VIAL/SYR IV SCH ×2 (09:27→21:04)
[2021-09-03] MEDS: ENOXAPARIN SOD 40 MG/0.4 ML SYRINGE SC SCH (09:27)
[2021-09-03] MEDS ORDERED: SODIUM PHOSPHATES 20 MEQ in SODIUM CHL 0.9% 100 ML IV ONE (09:45)
[2021-09-03] MEDS: TOBRAMYCIN 300 MG/5 ML NEB SOLN NEB SCH ×2 (10:44→22:02)
[2021-09-03] MEDS ORDERED: TPN PER PHARMACY IV NR ×7 (20:00)
[2021-09-03] MEDS: MEPERIDINE HCL (25 MG/ML) 1ML VIAL IV PRN (23:39)
[2021-09-04] VITALS (72 sets, daily range): BP systolic 93–146; BP diastolic 52–87
[2021-09-04] MEDS: MEPERIDINE HCL (25 MG/ML) 1ML VIAL IV PRN (04:50)
[2021-09-04] MEDS: ACETAMINOPHEN 500 MG TAB PO PRN (05:02)
[2021-09-04 05:05] LABS: Basophils # (auto) 0.1 10 ^3/uL (0-0.2); Basophils % (auto) 1.2 % (0.0-2.0); Eosinophils # (auto) 0.3 10 ^3/uL (0-0.8); Eosinophils % (auto) 2.5 % (0.0-7.0); Hematocrit 27.9 % (41.0-53.0); Hemoglobin 9.5 g/dL (13.5-17.5); Lymphocytes # (auto) 1.7 10 ^3/uL (0.4-5.4); Lymphocytes % (auto) 15.3 % (10.0-50.0); Mean Corpuscular Hemoglobin 31.4 pg (28.0-32.0); Mean Corpuscular Hgb Conc. 34.1 g/dL (32.0-36.0); Mean Corpuscular Volume 92.1 fL (80.0-100.0); Monocytes # (auto) 0.9 10 ^3/uL (0-1.3); Monocytes % (auto) 8.1 % (0.0-12.0); Neutrophils # (auto) 8.3 10 ^3/uL (1.6-8.6); Neutrophils % (auto) 72.9 % (37.0-80.0); Red Blood Cells 3.04 10^6/uL (4.5-5.90); Red Cell Distribution Width 14.1 % (11.8-14.3); White Blood Cell 11.3 10^3/uL (4.4-10.8)
[2021-09-04 05:28] LABS: Albumin 1.8 g/dL (3.4-5.0); Calcium 8.7 mg/dL (8.5-10.1); Magnesium 2.4 mg/dL (1.6-2.6)
[2021-09-04 05:30] LABS: Bilirubin, Total 1.2 mg/dL (0.2-1.0); Total Protein 6.2 g/dL (6.4-8.2)
[2021-09-04] MEDS: PROPOFOL 100 ML IV SCH ×6 (05:30→18:30)
[2021-09-04] MEDS: fentaNYL Drip 2500mCg/250mlNS 250 ML IV SCH ×2 (05:30→14:30)
[2021-09-04] MEDS: MIDAZOLAM DRIP 50 mg/50mL 50 ML IV SCH ×3 (05:30→21:59)
[2021-09-04] MEDS: ACCU-CHEK COMFORT CURVE STRIP VI SCH ×3 (05:48→18:00)
[2021-09-04] MEDS: InsuLIN REG 1unit/0.01ml Soln (100units/ml) SC SCH ×3 (05:48→18:00)
[2021-09-04] MEDS: LACTULOSE 20Gm/30ML SOLN PO SCH ×3 (05:48→18:00)
[2021-09-04] MEDS: PIPERACILLIN-TAZOB 3.375GM 100 ML IV SCH ×2 (05:48→14:00)
[2021-09-04] MEDS: TOBRAMYCIN 300 MG/5 ML NEB SOLN NEB SCH (06:22)
[2021-09-04] MEDS: SODIUM CHLOR 0.9% PF (SALINE LOCK) 10ML VIAL/SYR IV SCH ×2 (09:46→21:58)
[2021-09-04] MEDS: PANTOPRAZOLE 40 MG/10 ML VIAL INJ IV SCH (09:46)
[2021-09-04] MEDS: ENOXAPARIN SOD 40 MG/0.4 ML SYRINGE SC SCH (09:47)
[2021-09-04] MEDS: CHOLECALCIFEROL (VITD3) 2,000 UNIT CAP/TAB PO SCH (09:47)
[2021-09-04] MEDS ORDERED: TPN PER PHARMACY IV NR ×6 (20:00)
[2021-09-04] MEDS: LITHIUM CARBONATE 300 MG TAB PO SCH (21:58)
[2021-09-04] MEDS ORDERED: LITHIUM CARBONATE 300 MG TAB PO SCH (22:00)
[2021-09-05] VITALS (71 sets, daily range): BP systolic 75–129; BP diastolic 40–81
[2021-09-05] MEDS: NOREPINEPHRINE 8 MG/250ML KIT 250 ML IV SCH (02:00)
[2021-09-05 04:14] LABS: Basophils # (auto) 0.1 10 ^3/uL (0-0.2); Basophils % (auto) 0.6 % (0.0-2.0); Eosinophils # (auto) 0.1 10 ^3/uL (0-0.8); Eosinophils % (auto) 0.4 % (0.0-7.0); Hematocrit 30.6 % (41.0-53.0); Hemoglobin 10.4 g/dL (13.5-17.5); Lymphocytes # (auto) 0.8 10 ^3/uL (0.4-5.4); Lymphocytes % (auto) 6.2 % (10.0-50.0); Mean Corpuscular Hemoglobin 30.9 pg (28.0-32.0); Mean Corpuscular Hgb Conc. 33.9 g/dL (32.0-36.0); Mean Corpuscular Volume 91.1 fL (80.0-100.0); Monocytes # (auto) 0.9 10 ^3/uL (0-1.3); Monocytes % (auto) 6.3 % (0.0-12.0); Neutrophils # (auto) 11.8 10 ^3/uL (1.6-8.6); Neutrophils % (auto) 86.5 % (37.0-80.0); Red Blood Cells 3.36 10^6/uL (4.5-5.90); Red Cell Distribution Width 13.9 % (11.8-14.3); White Blood Cell 13.6 10^3/uL (4.4-10.8)
[2021-09-05 04:28] LABS: Calcium 8.9 mg/dL (8.5-10.1); Potassium 3.8 mmol/L (3.5-5.1)
[2021-09-05 04:30] LABS: BUN/Creatinine Ratio 30.8
[2021-09-05 04:33] LABS: Bilirubin, Total 1.1 mg/dL (0.2-1.0); Magnesium 2.4 mg/dL (1.6-2.6); Phosphorus 2.7 mg/dL (2.5-4.90); Total Protein 6.5 g/dL (6.4-8.2)
[2021-09-05] MEDS: ACCU-CHEK COMFORT CURVE STRIP VI SCH ×4 (06:00→16:30)
[2021-09-05] MEDS: LACTULOSE 20Gm/30ML SOLN PO SCH ×5 (06:02→23:34)
[2021-09-05] MEDS: fentaNYL Drip 2500mCg/250mlNS 250 ML IV SCH ×2 (06:03→21:00)
[2021-09-05] MEDS: InsuLIN REG 1unit/0.01ml Soln (100units/ml) SC SCH ×4 (06:04→17:43)
[2021-09-05] MEDS: PROPOFOL 100 ML IV SCH ×3 (06:05→21:00)
[2021-09-05] MEDS: ACETAMINOPHEN 500 MG TAB PO PRN ×3 (06:06→23:35)
[2021-09-05] MEDS: PANTOPRAZOLE 40 MG/10 ML VIAL INJ IV SCH (10:00)
[2021-09-05] MEDS: ENOXAPARIN SOD 40 MG/0.4 ML SYRINGE SC SCH (10:00)
[2021-09-05] MEDS: CHOLECALCIFEROL (VITD3) 2,000 UNIT CAP/TAB PO SCH (10:00)
[2021-09-05] MEDS ORDERED: TPN PER PHARMACY IV NR ×6 (20:00)
[2021-09-05] MEDS: LITHIUM CARBONATE 300 MG TAB PO SCH (22:00)
[2021-09-05] MEDS ORDERED: ALBUTEROL SULF 2.5 MG/0.5ML(0.5%) NEB SOLN ONE (23:16)
[2021-09-05] MEDS ORDERED: IPRATROPIUM BROM 0.5 MG/2.5ML INH SOL ONE (23:16)
[2021-09-06] VITALS (40 sets, daily range): BP systolic 89–129; BP diastolic 51–86
[2021-09-06] MEDS: PROPOFOL 100 ML IV SCH ×5 (01:35→21:36)
[2021-09-06] MEDS: NOREPINEPHRINE 8 MG/250ML KIT 250 ML IV SCH (02:00)
[2021-09-06 03:48] LABS: Basophils # (auto) 0.1 10 ^3/uL (0-0.2); Basophils % (auto) 0.7 % (0.0-2.0); Eosinophils # (auto) 0.1 10 ^3/uL (0-0.8); Eosinophils % (auto) 0.5 % (0.0-7.0); Hematocrit 27.5 % (41.0-53.0); Hemoglobin 9.1 g/dL (13.5-17.5); Lymphocytes # (auto) 1.3 10 ^3/uL (0.4-5.4); Lymphocytes % (auto) 8.3 % (10.0-50.0); Mean Corpuscular Hemoglobin 30.2 pg (28.0-32.0); Mean Corpuscular Volume 91.5 fL (80.0-100.0); Monocytes % (auto) 6.9 % (0.0-12.0); Neutrophils # (auto) 12.7 10 ^3/uL (1.6-8.6); Neutrophils % (auto) 83.6 % (37.0-80.0); Nucleated Red Blood Cells % 0.1 %; Red Blood Cells 3.01 10^6/uL (4.5-5.90); Red Cell Distribution Width 13.8 % (11.8-14.3); White Blood Cell 15.1 10^3/uL (4.4-10.8)
[2021-09-06] MEDS: InsuLIN REG 1unit/0.01ml Soln (100units/ml) SC SCH ×4 (05:33→17:35)
[2021-09-06] MEDS: LACTULOSE 20Gm/30ML SOLN PO SCH ×3 (05:33→17:35)
[2021-09-06] MEDS: ACCU-CHEK COMFORT CURVE STRIP VI SCH ×4 (05:33→17:35)
[2021-09-06 07:20] LABS: Albumin 1.9 g/dL (3.4-5.0); Calcium 8.7 mg/dL (8.5-10.1); Magnesium 2.6 mg/dL (1.6-2.6); Potassium 3.7 mmol/L (3.5-5.1)
[2021-09-06 07:22] LABS: BUN/Creatinine Ratio 34.1
[2021-09-06 07:24] LABS: Bilirubin, Total 0.8 mg/dL (0.2-1.0); Phosphorus 2.6 mg/dL (2.5-4.90); Total Protein 6.1 g/dL (6.4-8.2)
[2021-09-06] MEDS: CHOLECALCIFEROL (VITD3) 2,000 UNIT CAP/TAB PO SCH (09:31)
[2021-09-06] MEDS: ENOXAPARIN SOD 40 MG/0.4 ML SYRINGE SC SCH (09:31)
[2021-09-06] MEDS: PANTOPRAZOLE 40 MG/10 ML VIAL INJ IV SCH (09:31)
[2021-09-06] MEDS: MIDAZOLAM DRIP 50 mg/50mL 50 ML IV SCH (13:00)
[2021-09-06] MEDS: ACETAMINOPHEN 500 MG TAB PO PRN (18:00)
[2021-09-06] MEDS ORDERED: TPN PER PHARMACY IV NR ×7 (20:00)
[2021-09-06] MEDS: LITHIUM CARBONATE 300 MG TAB PO SCH (21:34)
[2021-09-06] MEDS: fentaNYL Drip 2500mCg/250mlNS 250 ML IV SCH (21:35)
[2021-09-07] VITALS (40 sets, daily range): BP systolic 90–140; BP diastolic 46–101
[2021-09-07 04:28] LABS: Basophils # (auto) 0.1 10 ^3/uL (0-0.2); Eosinophils # (auto) 0.2 10 ^3/uL (0-0.8); Eosinophils % (auto) 1.5 % (0.0-7.0); Hematocrit 27.7 % (41.0-53.0); Hemoglobin 9.1 g/dL (13.5-17.5); Lymphocytes # (auto) 1.4 10 ^3/uL (0.4-5.4); Lymphocytes % (auto) 10.6 % (10.0-50.0); Mean Corpuscular Hemoglobin 30.2 pg (28.0-32.0); Mean Corpuscular Hgb Conc. 32.9 g/dL (32.0-36.0); Mean Corpuscular Volume 91.8 fL (80.0-100.0); Monocytes % (auto) 7.5 % (0.0-12.0); Neutrophils # (auto) 10.5 10 ^3/uL (1.6-8.6); Neutrophils % (auto) 79.4 % (37.0-80.0); Nucleated Red Blood Cells % 0.1 %; Red Blood Cells 3.02 10^6/uL (4.5-5.90); Red Cell Distribution Width 13.9 % (11.8-14.3); White Blood Cell 13.3 10^3/uL (4.4-10.8)
[2021-09-07 04:46] LABS: BUN/Creatinine Ratio 34.2; Calcium 9.1 mg/dL (8.5-10.1); Magnesium 2.6 mg/dL (1.6-2.6); Potassium 3.3 mmol/L (3.5-5.1)
[2021-09-07 05:01] LABS: Bilirubin, Total 0.8 mg/dL (0.2-1.0); Phosphorus 2.9 mg/dL (2.5-4.90); Total Protein 6.1 g/dL (6.4-8.2)
[2021-09-07] MEDS: ACCU-CHEK COMFORT CURVE STRIP VI SCH ×4 (06:00→17:26)
[2021-09-07] MEDS: LACTULOSE 20Gm/30ML SOLN PO SCH ×4 (06:00→17:25)
[2021-09-07] MEDS: InsuLIN REG 1unit/0.01ml Soln (100units/ml) SC SCH ×4 (06:00→17:26)
[2021-09-07] MEDS: CHOLECALCIFEROL (VITD3) 2,000 UNIT CAP/TAB PO SCH (09:40)
[2021-09-07] MEDS: PANTOPRAZOLE 40 MG/10 ML VIAL INJ IV SCH (09:40)
[2021-09-07] MEDS: ENOXAPARIN SOD 40 MG/0.4 ML SYRINGE SC SCH (09:40)
[2021-09-07] MEDS: PROPOFOL 100 ML IV SCH (11:00)
[2021-09-07] MEDS ORDERED: POTASSIUM PHOSPHATE 22 MEQ in SODIUM CHL 0.9% 100 ML IV ONE (11:45)
[2021-09-07] MEDS: MIDAZOLAM DRIP 50 mg/50mL 50 ML IV SCH ×2 (12:10→18:00)
[2021-09-07] MEDS ORDERED: TPN PER PHARMACY IV NR ×8 (20:00)
[2021-09-07] MEDS: LITHIUM CARBONATE 300 MG TAB PO SCH (22:00)
[2021-09-08] VITALS (57 sets, daily range): BP systolic 91–163; BP diastolic 57–121
[2021-09-08 04:03] LABS: Albumin 2.1 g/dL (3.4-5.0); BUN/Creatinine Ratio 27.9; Magnesium 2.3 mg/dL (1.6-2.6); Potassium 3.6 mmol/L (3.5-5.1)
[2021-09-08 04:23] LABS: Phosphorus 2.9 mg/dL (2.5-4.90); Total Protein 6.3 g/dL (6.4-8.2)
[2021-09-08] MEDS ORDERED: LORazepam 2MG/ML-1ML VIAL ONE (04:39)
[2021-09-08] MEDS ORDERED: LORazepam 2MG/ML-1ML VIAL IV ONE (05:00)
[2021-09-08] MEDS ORDERED: NOREPINEPHRINE 8 MG/250ML KIT 250 ML IV ONE (05:36)
[2021-09-08] MEDS: InsuLIN REG 1unit/0.01ml Soln (100units/ml) SC SCH ×4 (05:49→17:39)
[2021-09-08] MEDS: ACCU-CHEK COMFORT CURVE STRIP VI SCH ×4 (05:50→17:39)
[2021-09-08] MEDS: LACTULOSE 20Gm/30ML SOLN PO SCH ×4 (05:50→17:38)
[2021-09-08] MEDS ORDERED: ATROPINE SULF 1 MG/10ml SYR ONE (06:24)
[2021-09-08] MEDS: PANTOPRAZOLE 40 MG/10 ML VIAL INJ IV SCH (09:48)
[2021-09-08] MEDS: CHOLECALCIFEROL (VITD3) 2,000 UNIT CAP/TAB PO SCH (09:49)
[2021-09-08] MEDS: ENOXAPARIN SOD 40 MG/0.4 ML SYRINGE SC SCH (09:49)
[2021-09-08] MEDS: PROPOFOL 100 ML IV SCH (15:00)
[2021-09-08] MEDS: fentaNYL Drip 2500mCg/250mlNS 250 ML IV SCH (15:45)
[2021-09-08] MEDS ORDERED: TPN PER PHARMACY IV NR ×7 (20:00)
[2021-09-08] MEDS: LITHIUM CARBONATE 300 MG TAB PO SCH (22:39)
[2021-09-09] VITALS (37 sets, daily range): BP systolic 86–143; BP diastolic 47–88
[2021-09-09] MEDS: ACCU-CHEK COMFORT CURVE STRIP VI SCH ×5 (00:06→23:48)
[2021-09-09] MEDS: InsuLIN REG 1unit/0.01ml Soln (100units/ml) SC SCH ×5 (00:07→23:48)
[2021-09-09 04:03] LABS: Basophils # (auto) 0.1 10 ^3/uL (0-0.2); Basophils % (auto) 0.9 % (0.0-2.0); Eosinophils # (auto) 0.1 10 ^3/uL (0-0.8); Eosinophils % (auto) 0.7 % (0.0-7.0); Hematocrit 27.5 % (41.0-53.0); Lymphocytes % (auto) 7.1 % (10.0-50.0); Mean Corpuscular Hemoglobin 29.8 pg (28.0-32.0); Mean Corpuscular Hgb Conc. 32.8 g/dL (32.0-36.0); Mean Corpuscular Volume 91.1 fL (80.0-100.0); Monocytes # (auto) 0.8 10 ^3/uL (0-1.3); Neutrophils # (auto) 11.6 10 ^3/uL (1.6-8.6); Neutrophils % (auto) 85.3 % (37.0-80.0); Red Blood Cells 3.02 10^6/uL (4.5-5.90); Red Cell Distribution Width 14.2 % (11.8-14.3); White Blood Cell 13.6 10^3/uL (4.4-10.8)
[2021-09-09 04:23] LABS: Albumin 2.3 g/dL (3.4-5.0); Calcium 9.4 mg/dL (8.5-10.1); Magnesium 2.4 mg/dL (1.6-2.6); Potassium 3.7 mmol/L (3.5-5.1)
[2021-09-09 04:25] LABS: BUN/Creatinine Ratio 22.5
[2021-09-09 04:28] LABS: Phosphorus 3.2 mg/dL (2.5-4.90); Total Protein 6.3 g/dL (6.4-8.2)
[2021-09-09 04:42] LABS: Pre Albumin 29.9 mg/dL (20.0-40.0)
[2021-09-09] MEDS: LACTULOSE 20Gm/30ML SOLN PO SCH ×5 (06:00→23:51)
[2021-09-09] MEDS: ONDANSETRON HCL 4 MG/2 ML VIAL IV PRN (06:22)
[2021-09-09] MEDS: CHOLECALCIFEROL (VITD3) 2,000 UNIT CAP/TAB PO SCH (10:00)
[2021-09-09] MEDS: ENOXAPARIN SOD 40 MG/0.4 ML SYRINGE SC SCH (10:00)
[2021-09-09] MEDS: PANTOPRAZOLE 40 MG/10 ML VIAL INJ IV SCH (10:00)
[2021-09-09] MEDS: fentaNYL Drip 2500mCg/250mlNS 250 ML IV SCH (15:45)
[2021-09-09] MEDS: PROPOFOL 100 ML IV SCH (17:30)
[2021-09-09] MEDS ORDERED: TPN PER PHARMACY IV NR ×7 (20:00)
[2021-09-09] MEDS: LITHIUM CARBONATE 300 MG TAB PO SCH (21:47)
[2021-09-10] VITALS (21 sets, daily range): BP systolic 88–125; BP diastolic 43–79
[2021-09-10 04:25] LABS: Albumin 2.3 g/dL (3.4-5.0); BUN/Creatinine Ratio 31.1; Calcium 9.3 mg/dL (8.5-10.1); Magnesium 2.4 mg/dL (1.6-2.6)
[2021-09-10 04:28] LABS: Bilirubin, Total 0.8 mg/dL (0.2-1.0); Phosphorus 3.4 mg/dL (2.5-4.90); Total Protein 6.2 g/dL (6.4-8.2)
[2021-09-10] MEDS: InsuLIN REG 1unit/0.01ml Soln (100units/ml) SC SCH ×3 (05:45→18:00)
[2021-09-10] MEDS: ACCU-CHEK COMFORT CURVE STRIP VI SCH ×3 (05:45→18:11)
[2021-09-10] MEDS: LACTULOSE 20Gm/30ML SOLN PO SCH ×3 (05:46→18:10)
[2021-09-10] MEDS: PANTOPRAZOLE 40 MG/10 ML VIAL INJ IV SCH (09:32)
[2021-09-10] MEDS: CHOLECALCIFEROL (VITD3) 2,000 UNIT CAP/TAB PO SCH (09:32)
[2021-09-10] MEDS: ENOXAPARIN SOD 40 MG/0.4 ML SYRINGE SC SCH (09:32)
[2021-09-10] MEDS: fentaNYL Drip 2500mCg/250mlNS 250 ML IV SCH (14:22)
[2021-09-10] MEDS: PROPOFOL 100 ML IV SCH (17:30)
[2021-09-10] MEDS: Ensure HIGH Protein Chocolate 8oz Bottle PO SCH (18:10)
[2021-09-10] MEDS ORDERED: TPN PER PHARMACY IV NR ×7 (20:00)
[2021-09-10] MEDS: LITHIUM CARBONATE 300 MG TAB PO SCH (21:31)
[2021-09-11] VITALS (21 sets, daily range): BP systolic 89–133; BP diastolic 45–92
[2021-09-11] MEDS: ACCU-CHEK COMFORT CURVE STRIP VI SCH ×4 (00:09→17:42)
[2021-09-11] MEDS: LACTULOSE 20Gm/30ML SOLN PO SCH ×3 (00:09→12:00)
[2021-09-11 04:45] LABS: Albumin 2.7 g/dL (3.4-5.0); BUN/Creatinine Ratio 32.4; Calcium 9.4 mg/dL (8.5-10.1); Magnesium 2.4 mg/dL (1.6-2.6); Potassium 3.8 mmol/L (3.5-5.1)
[2021-09-11 04:47] LABS: Bilirubin, Total 0.9 mg/dL (0.2-1.0); Phosphorus 3.2 mg/dL (2.5-4.90); Total Protein 6.7 g/dL (6.4-8.2)
[2021-09-11] MEDS: InsuLIN REG 1unit/0.01ml Soln (100units/ml) SC SCH ×4 (05:48→17:46)
[2021-09-11] MEDS: Ensure HIGH Protein Chocolate 8oz Bottle PO SCH ×3 (08:00→17:42)
[2021-09-11] MEDS: CHOLECALCIFEROL (VITD3) 2,000 UNIT CAP/TAB PO SCH (09:39)
[2021-09-11] MEDS: ENOXAPARIN SOD 40 MG/0.4 ML SYRINGE SC SCH (09:39)
[2021-09-11] MEDS: PANTOPRAZOLE 40 MG/10 ML VIAL INJ IV SCH (09:39)
[2021-09-11 10:23] LABS: Basophils # (auto) 0.2 10 ^3/uL (0-0.2); Eosinophils # (auto) 0.3 10 ^3/uL (0-0.8); Hemoglobin 10.6 g/dL (13.5-17.5); Mean Corpuscular Volume 90.9 fL (80.0-100.0)
[2021-09-11 10:25] LABS: Basophils % (auto) 1.3 % (0.0-2.0); Eosinophils % (auto) 2.1 % (0.0-7.0); Hematocrit 32.9 % (41.0-53.0); Lymphocytes # (auto) 1.6 10 ^3/uL (0.4-5.4); Lymphocytes % (auto) 9.7 % (10.0-50.0); Mean Corpuscular Hemoglobin 29.3 pg (28.0-32.0); Mean Corpuscular Hgb Conc. 32.3 g/dL (32.0-36.0); Monocytes # (auto) 1.2 10 ^3/uL (0-1.3); Neutrophils # (auto) 13.5 10 ^3/uL (1.6-8.6); Neutrophils % (auto) 79.9 % (37.0-80.0); Nucleated Red Blood Cells % 0.1 %; Red Blood Cells 3.62 10^6/uL (4.5-5.90); Red Cell Distribution Width 14.1 % (11.8-14.3); White Blood Cell 16.9 10^3/uL (4.4-10.8)
[2021-09-11] MEDS: PIPERACILLIN-TAZOB 3.375GM 100 ML IV SCH ×3 (13:32→23:27)
[2021-09-11] MEDS ORDERED: SODIUM CHLORIDE 0.9% 1,000 ML IV ONE (15:00)
[2021-09-11] MEDS: fentaNYL Drip 2500mCg/250mlNS 250 ML IV SCH (15:45)
[2021-09-11] MEDS: ACETYLCYSTEINE 10 %(100MG/ML) SOL 4ML NEB SCH ×2 (18:00→18:43)
[2021-09-11] MEDS: LEVALBUTEROL HCL 1.25 MG/3 ML NEB NEB SCH ×2 (18:00→18:43)
[2021-09-11] MEDS ORDERED: TPN PER PHARMACY IV NR ×8 (20:00)
[2021-09-11] MEDS ORDERED: LACTULOSE 20Gm/30ML SOLN PO SCH (22:00)
[2021-09-11] MEDS: LITHIUM CARBONATE 300 MG TAB PO SCH (22:51)
[2021-09-12] VITALS (23 sets, daily range): BP systolic 93–124; BP diastolic 52–83
[2021-09-12] MEDS: InsuLIN REG 1unit/0.01ml Soln (100units/ml) SC SCH ×4 (00:04→17:59)
[2021-09-12] MEDS: ACCU-CHEK COMFORT CURVE STRIP VI SCH ×4 (00:07→17:59)
[2021-09-12] MEDS: ACETYLCYSTEINE 10 %(100MG/ML) SOL 4ML NEB SCH ×4 (00:51→18:41)
[2021-09-12] MEDS: LEVALBUTEROL HCL 1.25 MG/3 ML NEB NEB SCH ×4 (00:51→18:41)
[2021-09-12 03:49] LABS: Basophils # (auto) 0.2 10 ^3/uL (0-0.2); Basophils % (auto) 1.2 % (0.0-2.0); Eosinophils # (auto) 0.3 10 ^3/uL (0-0.8); Eosinophils % (auto) 2.5 % (0.0-7.0); Hematocrit 29.9 % (41.0-53.0); Hemoglobin 9.8 g/dL (13.5-17.5); Lymphocytes # (auto) 0.7 10 ^3/uL (0.4-5.4); Lymphocytes % (auto) 4.9 % (10.0-50.0); Mean Corpuscular Hemoglobin 29.9 pg (28.0-32.0); Mean Corpuscular Hgb Conc. 32.9 g/dL (32.0-36.0); Mean Corpuscular Volume 90.9 fL (80.0-100.0); Monocytes # (auto) 0.9 10 ^3/uL (0-1.3); Monocytes % (auto) 6.3 % (0.0-12.0); Neutrophils # (auto) 11.4 10 ^3/uL (1.6-8.6); Neutrophils % (auto) 85.1 % (37.0-80.0); Red Blood Cells 3.28 10^6/uL (4.5-5.90); White Blood Cell 13.5 10^3/uL (4.4-10.8)
[2021-09-12 04:09] LABS: Potassium 3.8 mmol/L (3.5-5.1)
[2021-09-12 04:13] LABS: Albumin 2.6 g/dL (3.4-5.0); BUN/Creatinine Ratio 23.5; Calcium 9.2 mg/dL (8.5-10.1); Magnesium 2.2 mg/dL (1.6-2.6)
[2021-09-12 04:15] LABS: Bilirubin, Total 0.9 mg/dL (0.2-1.0); Phosphorus 3.4 mg/dL (2.5-4.90); Total Protein 6.4 g/dL (6.4-8.2)
[2021-09-12] MEDS: PIPERACILLIN-TAZOB 3.375GM 100 ML IV SCH ×4 (05:39→23:35)
[2021-09-12] MEDS: Ensure HIGH Protein Chocolate 8oz Bottle PO SCH ×2 (08:00→12:00)
[2021-09-12] MEDS: PANTOPRAZOLE 40 MG/10 ML VIAL INJ IV SCH (10:00)
[2021-09-12] MEDS: ENOXAPARIN SOD 40 MG/0.4 ML SYRINGE SC SCH (10:00)
[2021-09-12] MEDS: CHOLECALCIFEROL (VITD3) 2,000 UNIT CAP/TAB PO SCH (10:00)
[2021-09-12] MEDS: fentaNYL Drip 2500mCg/250mlNS 250 ML IV SCH (15:45)
[2021-09-12] MEDS ORDERED: TPN PER PHARMACY IV NR ×11 (20:00)
[2021-09-12] MEDS: LITHIUM CARBONATE 300 MG TAB PO SCH (20:49)
[2021-09-13] VITALS (22 sets, daily range): BP systolic 95–133; BP diastolic 51–83
[2021-09-13] MEDS: ACETYLCYSTEINE 10 %(100MG/ML) SOL 4ML NEB SCH ×2 (00:02→18:22)
[2021-09-13] MEDS: LEVALBUTEROL HCL 1.25 MG/3 ML NEB NEB SCH ×2 (00:03→18:21)
[2021-09-13] MEDS: ACCU-CHEK COMFORT CURVE STRIP VI SCH ×4 (00:04→18:06)
[2021-09-13] MEDS: LORazepam 2MG/ML-1ML VIAL IV PRN ×3 (02:45→19:45)
[2021-09-13 04:11] LABS: Potassium 4.3 mmol/L (3.5-5.1)
[2021-09-13 04:14] LABS: Albumin 2.5 g/dL (3.4-5.0); BUN/Creatinine Ratio 27.5; Magnesium 2.4 mg/dL (1.6-2.6)
[2021-09-13 04:17] LABS: Bilirubin, Total 0.8 mg/dL (0.2-1.0); Phosphorus 3.7 mg/dL (2.5-4.90); Total Protein 6.2 g/dL (6.4-8.2)
[2021-09-13 04:35] LABS: Basophils # (auto) 0.2 10 ^3/uL (0-0.2); Eosinophils # (auto) 0.4 10 ^3/uL (0-0.8); Eosinophils % (auto) 4.1 % (0.0-7.0); Hematocrit 28.8 % (41.0-53.0); Hemoglobin 9.5 g/dL (13.5-17.5); Lymphocytes % (auto) 9.6 % (10.0-50.0); Mean Corpuscular Hemoglobin 30.2 pg (28.0-32.0); Mean Corpuscular Hgb Conc. 32.9 g/dL (32.0-36.0); Mean Corpuscular Volume 91.8 fL (80.0-100.0); Monocytes # (auto) 0.8 10 ^3/uL (0-1.3); Monocytes % (auto) 7.4 % (0.0-12.0); Neutrophils # (auto) 7.8 10 ^3/uL (1.6-8.6); Neutrophils % (auto) 76.9 % (37.0-80.0); Nucleated Red Blood Cells % 0.1 %; Red Blood Cells 3.13 10^6/uL (4.5-5.90); Red Cell Distribution Width 14.3 % (11.8-14.3); White Blood Cell 10.1 10^3/uL (4.4-10.8)
[2021-09-13] MEDS: InsuLIN REG 1unit/0.01ml Soln (100units/ml) SC SCH ×4 (05:54→18:00)
[2021-09-13] MEDS: PIPERACILLIN-TAZOB 3.375GM 100 ML IV SCH (05:54)
[2021-09-13] MEDS: PANTOPRAZOLE 40 MG/10 ML VIAL INJ IV SCH (10:09)
[2021-09-13] MEDS: ENOXAPARIN SOD 40 MG/0.4 ML SYRINGE SC SCH (10:09)
[2021-09-13] MEDS ORDERED: levoFLOXacin 750MG 150 ML IV ONE (10:15)
[2021-09-13] MEDS ORDERED: SODIUM CHLORIDE 0.9% 1,000 ML IV ONE (14:45)
[2021-09-13] MEDS: fentaNYL Drip 2500mCg/250mlNS 250 ML IV SCH (15:45)
[2021-09-13] MEDS ORDERED: TPN PER PHARMACY IV NR ×10 (20:00)
[2021-09-13] MEDS: LITHIUM CARBONATE 300 MG TAB PO SCH (21:30)
[2021-09-13] MEDS: METOPROLOL TARTRATE 25 MG TAB PO SCH (21:31)
[2021-09-14] VITALS (23 sets, daily range): BP systolic 93–133; BP diastolic 51–85
[2021-09-14] MEDS: ACETYLCYSTEINE 10 %(100MG/ML) SOL 4ML NEB SCH ×4 (00:09→19:32)
[2021-09-14] MEDS: ACCU-CHEK COMFORT CURVE STRIP VI SCH ×5 (00:10→23:46)
[2021-09-14] MEDS: LEVALBUTEROL HCL 1.25 MG/3 ML NEB NEB SCH ×5 (00:10→19:32)
[2021-09-14] MEDS: InsuLIN REG 1unit/0.01ml Soln (100units/ml) SC SCH ×5 (00:11→23:49)
[2021-09-14 04:50] LABS: Basophils # (auto) 0.1 10 ^3/uL (0-0.2); Basophils % (auto) 1.3 % (0.0-2.0); Eosinophils # (auto) 0.3 10 ^3/uL (0-0.8); Eosinophils % (auto) 3.5 % (0.0-7.0); Hematocrit 28.9 % (41.0-53.0); Hemoglobin 9.6 g/dL (13.5-17.5); Lymphocytes # (auto) 1.3 10 ^3/uL (0.4-5.4); Mean Corpuscular Hemoglobin 30.4 pg (28.0-32.0); Mean Corpuscular Hgb Conc. 33.2 g/dL (32.0-36.0); Mean Corpuscular Volume 91.5 fL (80.0-100.0); Monocytes # (auto) 0.7 10 ^3/uL (0-1.3); Monocytes % (auto) 7.2 % (0.0-12.0); Neutrophils # (auto) 7.1 10 ^3/uL (1.6-8.6); Red Blood Cells 3.16 10^6/uL (4.5-5.90); Red Cell Distribution Width 14.3 % (11.8-14.3); White Blood Cell 9.6 10^3/uL (4.4-10.8)
[2021-09-14 04:57] LABS: Albumin 2.6 g/dL (3.4-5.0); Magnesium 2.2 mg/dL (1.6-2.6); Potassium 3.9 mmol/L (3.5-5.1)
[2021-09-14 05:00] LABS: BUN/Creatinine Ratio 29.8; Calcium 9.3 mg/dL (8.5-10.1)
[2021-09-14 05:02] LABS: Bilirubin, Total 0.7 mg/dL (0.2-1.0); Total Protein 6.2 g/dL (6.4-8.2)
[2021-09-14] MEDS: LORazepam 2MG/ML-1ML VIAL IV PRN ×2 (06:19→19:45)
[2021-09-14 09:57] LABS: Free T3 3.32 pg/mL (2.3-4.2)
[2021-09-14 09:58] LABS: Free T4 (Free Thyroxine) 1.55 ng/dL (0.89-1.76)
[2021-09-14] MEDS: PANTOPRAZOLE 40 MG/10 ML VIAL INJ IV SCH (10:13)
[2021-09-14] MEDS: levoFLOXacin 750MG 150 ML IV SCH (10:13)
[2021-09-14] MEDS: METOPROLOL TARTRATE 25 MG TAB PO SCH ×2 (10:14→21:41)
[2021-09-14] MEDS: ENOXAPARIN SOD 40 MG/0.4 ML SYRINGE SC SCH (10:14)
[2021-09-14 13:45] LABS: Calcium 9.6 mg/dL (8.5-10.1)
[2021-09-14 13:48] LABS: BUN/Creatinine Ratio 23.7
[2021-09-14] MEDS: fentaNYL Drip 2500mCg/250mlNS 250 ML IV SCH (15:45)
[2021-09-14] MEDS ORDERED: TPN PER PHARMACY IV NR ×10 (20:00)
[2021-09-14] MEDS: LITHIUM CARBONATE 300 MG TAB PO SCH (21:41)
[2021-09-15] VITALS (21 sets, daily range): BP systolic 94–131; BP diastolic 52–80
[2021-09-15] MEDS: ACETYLCYSTEINE 10 %(100MG/ML) SOL 4ML NEB SCH ×4 (01:13→19:19)
[2021-09-15] MEDS: LEVALBUTEROL HCL 1.25 MG/3 ML NEB NEB SCH ×4 (01:13→19:19)
[2021-09-15 04:45] LABS: Basophils # (auto) 0.1 10 ^3/uL (0-0.2); Basophils % (auto) 1.2 % (0.0-2.0); Eosinophils # (auto) 0.2 10 ^3/uL (0-0.8); Eosinophils % (auto) 2.3 % (0.0-7.0); Hematocrit 30.3 % (41.0-53.0); Lymphocytes # (auto) 1.8 10 ^3/uL (0.4-5.4); Lymphocytes % (auto) 16.6 % (10.0-50.0); Mean Corpuscular Volume 90.7 fL (80.0-100.0); Monocytes # (auto) 0.8 10 ^3/uL (0-1.3); Monocytes % (auto) 7.6 % (0.0-12.0); Neutrophils # (auto) 7.6 10 ^3/uL (1.6-8.6); Neutrophils % (auto) 72.3 % (37.0-80.0); Nucleated Red Blood Cells % 0.1 %; Red Blood Cells 3.34 10^6/uL (4.5-5.90); Red Cell Distribution Width 14.3 % (11.8-14.3); White Blood Cell 10.5 10^3/uL (4.4-10.8)
[2021-09-15 05:07] LABS: Potassium 3.9 mmol/L (3.5-5.1)
[2021-09-15 05:10] LABS: Albumin 2.7 g/dL (3.4-5.0); BUN/Creatinine Ratio 28.3; Phosphorus 3.6 mg/dL (2.5-4.90)
[2021-09-15 05:12] LABS: Bilirubin, Total 0.8 mg/dL (0.2-1.0); Magnesium 2.2 mg/dL (1.6-2.6); Total Protein 6.4 g/dL (6.4-8.2)
[2021-09-15] MEDS: ACCU-CHEK COMFORT CURVE STRIP VI SCH ×4 (05:33→23:46)
[2021-09-15] MEDS: InsuLIN REG 1unit/0.01ml Soln (100units/ml) SC SCH ×4 (05:34→23:46)
[2021-09-15] MEDS: METOPROLOL TARTRATE 25 MG TAB PO SCH ×2 (09:34→21:13)
[2021-09-15] MEDS: PANTOPRAZOLE 40 MG/10 ML VIAL INJ IV SCH (09:35)
[2021-09-15] MEDS: ENOXAPARIN SOD 40 MG/0.4 ML SYRINGE SC SCH (09:35)
[2021-09-15] MEDS: levoFLOXacin 750MG 150 ML IV SCH (09:35)
[2021-09-15] MEDS: fentaNYL Drip 2500mCg/250mlNS 250 ML IV SCH (15:45)
[2021-09-15] MEDS ORDERED: TPN PER PHARMACY IV NR ×10 (20:00)
[2021-09-15] MEDS: LITHIUM CARBONATE 300 MG TAB PO SCH (21:13)
[2021-09-16] VITALS (14 sets, daily range): BP systolic 104–132; BP diastolic 63–83
[2021-09-16] MEDS: ACETYLCYSTEINE 10 %(100MG/ML) SOL 4ML NEB SCH ×4 (01:02→18:59)
[2021-09-16] MEDS: LEVALBUTEROL HCL 1.25 MG/3 ML NEB NEB SCH ×4 (01:02→18:59)
[2021-09-16 04:15] LABS: Basophils # (auto) 0.1 10 ^3/uL (0-0.2); Basophils % (auto) 1.1 % (0.0-2.0); Eosinophils # (auto) 0.2 10 ^3/uL (0-0.8); Eosinophils % (auto) 1.5 % (0.0-7.0); Hematocrit 31.4 % (41.0-53.0); Hemoglobin 10.7 g/dL (13.5-17.5); Lymphocytes # (auto) 1.6 10 ^3/uL (0.4-5.4); Lymphocytes % (auto) 12.5 % (10.0-50.0); Mean Corpuscular Hemoglobin 30.5 pg (28.0-32.0); Mean Corpuscular Volume 89.8 fL (80.0-100.0); Monocytes # (auto) 0.9 10 ^3/uL (0-1.3); Monocytes % (auto) 7.3 % (0.0-12.0); Neutrophils # (auto) 9.7 10 ^3/uL (1.6-8.6); Neutrophils % (auto) 77.6 % (37.0-80.0); Nucleated Red Blood Cells % 0.1 %; Red Blood Cells 3.49 10^6/uL (4.5-5.90); Red Cell Distribution Width 14.2 % (11.8-14.3); White Blood Cell 12.5 10^3/uL (4.4-10.8)
[2021-09-16 04:16] LABS: Calcium 9.6 mg/dL (8.5-10.1); Magnesium 2.4 mg/dL (1.6-2.6); Potassium 3.7 mmol/L (3.5-5.1)
[2021-09-16 04:21] LABS: BUN/Creatinine Ratio 24.6; Bilirubin, Total 0.7 mg/dL (0.2-1.0); Phosphorus 3.6 mg/dL (2.5-4.90); Total Protein 6.7 g/dL (6.4-8.2)
[2021-09-16] MEDS: InsuLIN REG 1unit/0.01ml Soln (100units/ml) SC SCH (05:10)
[2021-09-16] MEDS: ACCU-CHEK COMFORT CURVE STRIP VI SCH (05:24)
[2021-09-16] MEDS: LORazepam 2MG/ML-1ML VIAL IV PRN ×2 (05:25→20:55)
[2021-09-16] MEDS: PANTOPRAZOLE 40 MG/10 ML VIAL INJ IV SCH (09:42)
[2021-09-16] MEDS: METOPROLOL TARTRATE 25 MG TAB PO SCH ×2 (09:42→21:05)
[2021-09-16] MEDS: levoFLOXacin 750MG 150 ML IV SCH (09:43)
[2021-09-16] MEDS: ENOXAPARIN SOD 40 MG/0.4 ML SYRINGE SC SCH (09:43)
[2021-09-16] MEDS: ONDANSETRON HCL 4 MG/2 ML VIAL IV PRN (14:27)
[2021-09-16] MEDS: fentaNYL Drip 2500mCg/250mlNS 250 ML IV SCH (15:45)
[2021-09-16] MEDS: ACETAMINOPHEN 500 MG TAB PO PRN ×2 (16:19→20:56)
[2021-09-16] MEDS ORDERED: CATHFLO ACTIVASE (ALTEPLASE) 2 MG VIAL IV ONE (19:30)
[2021-09-16] MEDS ORDERED: TPN PER PHARMACY IV NR ×10 (20:00)
[2021-09-16] MEDS: LITHIUM CARBONATE 300 MG TAB PO SCH (21:06)
[2021-09-17] VITALS (11 sets, daily range): BP systolic 98–119; BP diastolic 60–78
[2021-09-17] MEDS: ACETYLCYSTEINE 10 %(100MG/ML) SOL 4ML NEB SCH ×4 (00:13→18:29)
[2021-09-17] MEDS: LEVALBUTEROL HCL 1.25 MG/3 ML NEB NEB SCH ×4 (00:13→18:29)
[2021-09-17] MEDS: LORazepam 2MG/ML-1ML VIAL IV PRN ×2 (02:14→17:05)
[2021-09-17] MEDS: ACETAMINOPHEN 500 MG TAB PO PRN ×4 (02:14→20:37)
[2021-09-17 04:11] LABS: Basophils # (auto) 0.1 10 ^3/uL (0-0.2); Eosinophils # (auto) 0 10 ^3/uL (0-0.8); Eosinophils % (auto) 0.1 % (0.0-7.0); Hematocrit 35.1 % (41.0-53.0); Hemoglobin 11.6 g/dL (13.5-17.5); Lymphocytes # (auto) 0.8 10 ^3/uL (0.4-5.4); Lymphocytes % (auto) 8.8 % (10.0-50.0); Mean Corpuscular Hemoglobin 30.1 pg (28.0-32.0); Mean Corpuscular Hgb Conc. 33.1 g/dL (32.0-36.0); Mean Corpuscular Volume 91.1 fL (80.0-100.0); Monocytes # (auto) 0.4 10 ^3/uL (0-1.3); Monocytes % (auto) 4.4 % (0.0-12.0); Neutrophils # (auto) 7.7 10 ^3/uL (1.6-8.6); Neutrophils % (auto) 85.7 % (37.0-80.0); Red Blood Cells 3.86 10^6/uL (4.5-5.90); Red Cell Distribution Width 14.4 % (11.8-14.3); White Blood Cell 8.9 10^3/uL (4.4-10.8)
[2021-09-17 04:28] LABS: Potassium 4.8 mmol/L (3.5-5.1)
[2021-09-17 04:30] LABS: BUN/Creatinine Ratio 18.8
[2021-09-17] MEDS: levoFLOXacin 750MG 150 ML IV SCH (08:35)
[2021-09-17] MEDS: METOPROLOL TARTRATE 25 MG TAB PO SCH ×2 (10:00→21:14)
[2021-09-17] MEDS: PANTOPRAZOLE 40 MG/10 ML VIAL INJ IV SCH (10:39)
[2021-09-17] MEDS: ENOXAPARIN SOD 40 MG/0.4 ML SYRINGE SC SCH (10:39)
[2021-09-17] MEDS: SODIUM CHLORIDE 0.9% 1,000 ML IV SCH (12:59)
[2021-09-17] MEDS: ONDANSETRON HCL 4 MG/2 ML VIAL IV PRN (17:05)
[2021-09-17] MEDS: LITHIUM CARBONATE 300 MG TAB PO SCH (21:15)
[2021-09-18] VITALS (9 sets, daily range): BP systolic 87–120; BP diastolic 55–73
[2021-09-18] MEDS: LEVALBUTEROL HCL 1.25 MG/3 ML NEB NEB SCH ×4 (00:25→18:55)
[2021-09-18] MEDS: ACETYLCYSTEINE 10 %(100MG/ML) SOL 4ML NEB SCH ×4 (00:25→18:55)
[2021-09-18] MEDS: LORazepam 2MG/ML-1ML VIAL IV PRN ×2 (01:17→22:29)
[2021-09-18] MEDS: SODIUM CHLORIDE 0.9% 1,000 ML IV SCH ×2 (02:16→11:38)
[2021-09-18] MEDS: ACETAMINOPHEN 500 MG TAB PO PRN (04:31)
[2021-09-18 05:11] LABS: Potassium 4.2 mmol/L (3.5-5.1)
[2021-09-18 05:16] LABS: Basophils # (auto) 0.1 10 ^3/uL (0-0.2); Basophils % (auto) 1.3 % (0.0-2.0); Eosinophils # (auto) 0 10 ^3/uL (0-0.8); Eosinophils % (auto) 0.7 % (0.0-7.0); Hematocrit 32.9 % (41.0-53.0); Lymphocytes % (auto) 14.1 % (10.0-50.0); Mean Corpuscular Hemoglobin 30.2 pg (28.0-32.0); Mean Corpuscular Hgb Conc. 33.5 g/dL (32.0-36.0); Mean Corpuscular Volume 90.4 fL (80.0-100.0); Monocytes # (auto) 0.6 10 ^3/uL (0-1.3); Neutrophils # (auto) 5.5 10 ^3/uL (1.6-8.6); Neutrophils % (auto) 75.9 % (37.0-80.0); Red Blood Cells 3.64 10^6/uL (4.5-5.90); Red Cell Distribution Width 14.1 % (11.8-14.3); White Blood Cell 7.2 10^3/uL (4.4-10.8)
[2021-09-18 05:20] LABS: BUN/Creatinine Ratio 15.8; Calcium 9.7 mg/dL (8.5-10.1)
[2021-09-18] MEDS: METOPROLOL TARTRATE 25 MG TAB PO SCH ×2 (10:00→21:37)
[2021-09-18] MEDS: levoFLOXacin 750MG 150 ML IV SCH (11:41)
[2021-09-18] MEDS: PANTOPRAZOLE 40 MG/10 ML VIAL INJ IV SCH (11:41)
[2021-09-18] MEDS: ENOXAPARIN SOD 40 MG/0.4 ML SYRINGE SC SCH (11:42)
[2021-09-18] MEDS: LITHIUM CARBONATE 300 MG TAB PO SCH (21:36)
[2021-09-18] MEDS: ONDANSETRON HCL 4 MG/2 ML VIAL IV PRN (21:37)
[2021-09-19] VITALS (8 sets, daily range): BP systolic 96–114; BP diastolic 59–67
[2021-09-19 04:44] LABS: Basophils # (auto) 0.1 10 ^3/uL (0-0.2); Basophils % (auto) 1.7 % (0.0-2.0); Eosinophils # (auto) 0.3 10 ^3/uL (0-0.8); Eosinophils % (auto) 4.2 % (0.0-7.0); Hematocrit 32.7 % (41.0-53.0); Lymphocytes # (auto) 1.4 10 ^3/uL (0.4-5.4); Lymphocytes % (auto) 21.4 % (10.0-50.0); Mean Corpuscular Hemoglobin 30.2 pg (28.0-32.0); Mean Corpuscular Hgb Conc. 33.5 g/dL (32.0-36.0); Mean Corpuscular Volume 90.1 fL (80.0-100.0); Monocytes # (auto) 0.9 10 ^3/uL (0-1.3); Monocytes % (auto) 13.8 % (0.0-12.0); Neutrophils # (auto) 3.9 10 ^3/uL (1.6-8.6); Neutrophils % (auto) 58.9 % (37.0-80.0); Nucleated Red Blood Cells % 0.1 %; Red Blood Cells 3.63 10^6/uL (4.5-5.90); Red Cell Distribution Width 14.4 % (11.8-14.3); White Blood Cell 6.6 10^3/uL (4.4-10.8)
[2021-09-19 04:49] LABS: Calcium 9.5 mg/dL (8.5-10.1); Potassium 3.5 mmol/L (3.5-5.1)
[2021-09-19 04:52] LABS: BUN/Creatinine Ratio 14.5
[2021-09-19] MEDS: LEVALBUTEROL HCL 1.25 MG/3 ML NEB NEB SCH ×4 (05:19→18:21)
[2021-09-19] MEDS: ACETYLCYSTEINE 10 %(100MG/ML) SOL 4ML NEB SCH ×4 (05:19→18:21)
[2021-09-19] MEDS: METOPROLOL TARTRATE 25 MG TAB PO SCH ×2 (10:00→21:02)
[2021-09-19] MEDS: PANTOPRAZOLE 40 MG/10 ML VIAL INJ IV SCH (11:31)
[2021-09-19] MEDS: levoFLOXacin 750MG 150 ML IV SCH (11:33)
[2021-09-19] MEDS: ENOXAPARIN SOD 40 MG/0.4 ML SYRINGE SC SCH (11:33)
[2021-09-19] MEDS: LITHIUM CARBONATE 300 MG TAB PO SCH (21:01)
[2021-09-20] VITALS (10 sets, daily range): BP systolic 96–123; BP diastolic 59–82
[2021-09-20] MEDS: ACETYLCYSTEINE 10 %(100MG/ML) SOL 4ML NEB SCH ×5 (00:22→23:11)
[2021-09-20] MEDS: LEVALBUTEROL HCL 1.25 MG/3 ML NEB NEB SCH ×5 (00:22→23:11)
[2021-09-20] MEDS: LORazepam 2MG/ML-1ML VIAL IV PRN ×2 (00:44→23:01)
[2021-09-20] MEDS: PANTOPRAZOLE 40 MG/10 ML VIAL INJ IV SCH (17:51)
[2021-09-20] MEDS: levoFLOXacin 750MG 150 ML IV SCH (17:51)
[2021-09-20] MEDS: ENOXAPARIN SOD 40 MG/0.4 ML SYRINGE SC SCH (17:52)
[2021-09-20] MEDS: METOPROLOL TARTRATE 25 MG TAB PO SCH ×2 (17:52→21:28)
[2021-09-20] MEDS: ACETAMINOPHEN 500 MG TAB PO PRN (17:54)
[2021-09-20] MEDS: ONDANSETRON HCL 4 MG/2 ML VIAL IV PRN (19:53)
[2021-09-20] MEDS: LITHIUM CARBONATE 300 MG TAB PO SCH (21:27)
[2021-09-21] VITALS (11 sets, daily range): BP systolic 101–125; BP diastolic 58–82
[2021-09-21] MEDS: ONDANSETRON HCL 4 MG/2 ML VIAL IV PRN ×2 (03:12→09:14)
[2021-09-21] MEDS: ACETAMINOPHEN 500 MG TAB PO PRN ×2 (03:13→10:48)
[2021-09-21] MEDS: LEVALBUTEROL HCL 1.25 MG/3 ML NEB NEB SCH ×2 (07:24→11:39)
[2021-09-21] MEDS: ACETYLCYSTEINE 10 %(100MG/ML) SOL 4ML NEB SCH ×2 (07:24→11:40)
[2021-09-21] MEDS: levoFLOXacin 750MG 150 ML IV SCH (10:48)
[2021-09-21] MEDS: PANTOPRAZOLE 40 MG/10 ML VIAL INJ IV SCH (10:48)
[2021-09-21] MEDS: METOPROLOL TARTRATE 25 MG TAB PO SCH (10:50)
[2021-09-21] MEDS: ENOXAPARIN SOD 40 MG/0.4 ML SYRINGE SC SCH (10:50)
[2021-09-21] MEDS ORDERED: FLUC200T50 PO (15:43)
[2021-09-21] MEDS ORDERED: FLUCONAZOLE 200MG/100ML 100 ML IV SCH (16:00)
== END 2021-09-21 17:42 | DRG 5 ==
LOC: EDBD 07:37 → ER 07:37 → TELE 12:00 → TELE-WESTW 23:37 → ICU WEST 08-06 11:33
PROVIDERS: ADMIT Hospitalist; ATTEND Internal Medicine Pulmonary Disease
PROC: XW033E5 Introduction of Remdesivir Anti-infective into Peripheral Vein, Percutaneous Approach, New Technology Group 5 (ICD-10-PCS; 2021-07-23)
PROC: 5A0935A Assistance with Respiratory Ventilation, Less than 24 Consecutive Hours, High Flow/Velocity Cannula (ICD-10-PCS; 2021-07-31)
PROC: 5A0935A Assistance with Respiratory Ventilation, Less than 24 Consecutive Hours, High Flow/Velocity Cannula (ICD-10-PCS; 2021-08-01)
PROC: 5A0935A Assistance with Respiratory Ventilation, Less than 24 Consecutive Hours, High Flow/Velocity Cannula (ICD-10-PCS; 2021-08-02)
PROC: 5A0935A Assistance with Respiratory Ventilation, Less than 24 Consecutive Hours, High Flow/Velocity Cannula (ICD-10-PCS; 2021-08-03)
PROC: 5A0935A Assistance with Respiratory Ventilation, Less than 24 Consecutive Hours, High Flow/Velocity Cannula (ICD-10-PCS; 2021-08-04)
PROC: 5A0935A Assistance with Respiratory Ventilation, Less than 24 Consecutive Hours, High Flow/Velocity Cannula (ICD-10-PCS; 2021-08-05)
PROC: 5A1955Z Respiratory Ventilation, Greater than 96 Consecutive Hours (ICD-10-PCS; principal; 2021-08-06)
PROC: 0BH17EZ Insertion of Endotracheal Airway into Trachea, Via Natural or Artificial Opening (ICD-10-PCS; 2021-08-06)
PROC: 0F9430Z Drainage of Gallbladder with Drainage Device, Percutaneous Approach (ICD-10-PCS; 2021-08-26)
PROC: BF42ZZZ Ultrasonography of Gallbladder (ICD-10-PCS; 2021-08-26)
PROC: 0B110F4 Bypass Trachea to Cutaneous with Tracheostomy Device, Open Approach (ICD-10-PCS; 2021-09-02)
PROC: 0DB68ZX Excision of Stomach, Via Natural or Artificial Opening Endoscopic, Diagnostic (ICD-10-PCS; 2021-09-02)
DX: A41.89 Other specified sepsis (principal); J12.82 Pneumonia due to coronavirus disease 2019; R65.21 Severe sepsis with septic shock; J15.1 Pneumonia due to Pseudomonas; E46 Unspecified protein-calorie malnutrition; J96.21 Acute and chronic respiratory failure with hypoxia; K81.0 Acute cholecystitis; U07.1 COVID-19; B37.0 Candidal stomatitis; D89.839 Cytokine release syndrome, grade unspecified; E55.9 Vitamin D deficiency, unspecified; R73.03 Prediabetes; J20.8 Acute bronchitis due to other specified organisms; E87.6 Hypokalemia; E66.01 Morbid (severe) obesity due to excess calories; E78.5 Hyperlipidemia, unspecified; J45.901 Unspecified asthma with (acute) exacerbation; J98.11 Atelectasis; I44.1 Atrioventricular block, second degree; N39.0 Urinary tract infection, site not specified; E88.09 Other disorders of plasma-protein metabolism, not elsewhere classified; E86.0 Dehydration; K29.70 Gastritis, unspecified, without bleeding; K44.9 Diaphragmatic hernia without obstruction or gangrene; Z99.11 Dependence on respirator [ventilator] status; Z68.32 Body mass index [BMI] 32.0-32.9, adult
CPT/HCPCS: 36415; 36569; 36600; 70450; 71045; 71260; 74018; 74176; 74177; 76705; 76942; 80048; 80053; 80061; 80178; 80202; 80307; 81001; 82040; 82306; 82565; 82728; 82805; 82962; 83036; 83605; 83615; 83735; 83880; 84100; 84439; 84443; 84478; 84481; 84484; 84550; 85007; 85025; 85027; 85379; 85610; 85730; 86141; 86635; 86703; 87040; 87070; 87077; 87081; 87086; 87088; 87186; 87205; 92507; 92523; 92610; 93005; 93306; 93970; 94002; 94003; 94640; 94660; 96365; 96368; 96375; 97110; 97116; 97163; 97530; A4605; A4618; C1729; C9113; G0378; J0131; J0696; J1100; J1450; J1815; J1956; J2185; J2248; J2250; J2405; J2543; J2704; J7060; J7131

== ENCOUNTER 2022-06-24 11:17 | Emergency (ER) | payer OTHER ==
[~2022-06-24] VITALS: Ht 193 cm; Wt 111.0 kg
[~2022-06-24 11:17] MED LIST: ALBU108A5 IN; ALBUAER3 IN; ASCO10003 PO; BUDE2SUS3 IN; DEX4T PO; DOXY-286 PO; FLUC200T50 PO; IVER3TAB PO; NEBUMIS40 XX; ZINC220T6 PO
[2022-06-24 11:54] LABS: Basophils # (auto) 0.1 10 ^3/uL (0-0.2); Basophils % (auto) 0.9 % (0.0-2.0); Eosinophils # (auto) 0.2 10 ^3/uL (0-0.8); Eosinophils % (auto) 2.1 % (0.0-7.0); Hematocrit 42.4 % (41.0-53.0); Hemoglobin 14.2 g/dL (13.5-17.5); Lymphocytes # (auto) 2.1 10 ^3/uL (0.4-5.4); Lymphocytes % (auto) 30.1 % (10.0-50.0); Mean Corpuscular Hemoglobin 30.3 pg (28.0-32.0); Mean Corpuscular Hgb Conc. 33.4 g/dL (32.0-36.0); Mean Corpuscular Volume 90.9 fL (80.0-100.0); Monocytes # (auto) 0.4 10 ^3/uL (0-1.3); Monocytes % (auto) 5.8 % (0.0-12.0); Neutrophils # (auto) 4.3 10 ^3/uL (1.6-8.6); Neutrophils % (auto) 61.1 % (37.0-80.0); Red Blood Cells 4.66 10^6/uL (4.5-5.90); Red Cell Distribution Width 13.4 % (11.8-14.3); White Blood Cell 7.1 10^3/uL (4.4-10.8)
[2022-06-24 12:12] LABS: Albumin 4.2 g/dL (3.4-5.0); Calcium 9.1 mg/dL (8.5-10.1); Magnesium 2.5 mg/dL (1.6-2.6); Potassium 4.3 mmol/L (3.5-5.1)
[2022-06-24 12:15] LABS: BUN/Creatinine Ratio 17.9; Bilirubin, Total 0.6 mg/dL (0.2-1.0); Total Protein 7.3 g/dL (6.4-8.2)
[2022-06-24] MEDS ORDERED: AZIT1POW PO (13:33)
[2022-06-24] MEDS ORDERED: METH4PAK PO (13:33)
[2022-06-24 15:07] VITALS: BP 100/58
== END 2022-06-24 15:09 | disposition home or self-care (01) ==
LOC: ER 11:17
DX: J20.9 Acute bronchitis, unspecified (principal); J45.909 Unspecified asthma, uncomplicated
CPT/HCPCS: 36415; 71046; 80053; 83735; 84484; 85025; 85379; 93005